=== PATIENT | male | born 1965 | race American Indian/Alaskan Native ===

== ENCOUNTER 2016-11-25 14:57 | Observation (INO) | payer OTHER ==
[2016-11-25] MEDS ORDERED: IPRATROPIUM-ALBUTEROL 3 ML NEB INHALATION STA (16:02)
[2016-11-25] MEDS ORDERED: FUROSEMIDE 10 MG/ML 4 ML VIAL IV STA (16:02)
--- NOTE | 2016-11-25 16:04 | ED ---
General Adult HPI - General Source: patient, RN notes reviewed, old records reviewed Mode of arrival: ambulatory Limitations: no limitations <Joel Rodriguez - Last Filed: 11/25/16 16:31> <Joel Chamberlain - Last Filed: 11/25/16 18:24> - General Chief complaint: Recheck/Abnormal Lab/Rx Stated complaint: Pneumonia - History of Present Illness Initial comments: This is a 52-year-old male to the ER for evaluation. This patient presents to the ER for evaluation of shortness of breath source of breath with cough and congestion not feeling well for a month. Patient does have significant heart history and see history of COPD. Denies fevers. No travel history. No specific chest pain. Is not very well. Patient was seen in urgent care and told to come to ER for abnormal x-ray possible pneumonia. Patient denies cough or congestion but does admit to shortness of breath. No chest pain no bowel pain no nausea vomiting or diarrhea (Joel Rodriguez) - Related Data Home Medications Medication Instructions Recorded Confirmed Aspirin 162.5 mg PO BID 11/25/16 11/25/16 Atorvastatin [Lipitor] 80 mg PO HS 11/25/16 11/25/16 Cholecalciferol [Vitamin D3] 5,000 unit PO DAILY 11/25/16 11/25/16 Clopidogrel [Plavix] 75 mg PO DAILY 11/25/16 11/25/16 Digoxin [Digitek] 125 mcg PO DAILY 11/25/16 11/25/16 Magnesium 400 mg PO DAILY 11/25/16 11/25/16 Metoprolol Tartrate [Lopressor] 50 mg PO DAILY 11/25/16 11/25/16 amLODIPine [Norvasc] 2.5 mg PO DAILY 11/25/16 11/25/16 metFORMIN HCL [Glucophage] 500 mg PO BID 11/25/16 11/25/16 Allergies Allergy/AdvReac Type Severity Reaction Status Date / Time codeine Allergy Severe Dyspnea Verified 11/25/16 17:19 Opioids - Morphine Analogues Allergy Severe Dyspnea Verified 11/25/16 17:19 Penicillins Allergy Dyspnea Verified 11/25/16 17:19 Sulfa (Sulfonamide Allergy Anaphylaxis Verified 11/25/16 17:19 Antibiotics) Review of Systems ROS Other: All systems not noted in ROS Statement are negative. <Joel Rodriguez - Last Filed: 11/25/16 16:31> ROS Other: All systems not noted in ROS Statement are negative. <Joel Chamberlain - Last Filed: 11/25/16 18:24> ROS Statement: Those systems with pertinent positive or pertinent negative responses have been documented in the HPI. Past Medical History Past Medical History: Coronary Artery Disease (CAD), Heart Failure, COPD, CVA/ TIA, Diabetes Mellitus, Hyperlipidemia, Hypertension, Myocardial Infarction ([place]) History of Any Multi-Drug Resistant Organisms: None Reported Past Surgical History: Orthopedic Surgery Additional Past Surgical History / Comment(s): arm reconstruction Past Psychological History: No Psychological Hx Reported Smoking Status: Current every day smoker Past Alcohol Use History: None Reported Past Drug Use History: None Reported <Joel Rodriguez - Last Filed: 11/25/16 16:31> General Exam Limitations: no limitations General appearance: alert, in no apparent distress Head exam: Present: atraumatic, normocephalic, normal inspection Eye exam: Present: normal appearance, PERRL, EOMI. Absent: scleral icterus, conjunctival injection, periorbital swelling ENT exam: Present: normal exam, mucous membranes moist Neck exam: Present: normal inspection. Absent: tenderness, meningismus, lymphadenopathy Respiratory exam: Present: normal lung sounds bilaterally. Absent: respiratory distress, wheezes, rales, rhonchi, stridor Cardiovascular Exam: Present: regular rate, normal rhythm, normal heart sounds. Absent: systolic murmur, diastolic murmur, rubs, gallop, clicks GI/Abdominal exam: Present: soft, normal bowel sounds. Absent: distended, tenderness, guarding, rebound, rigid Extremities exam: Present: normal inspection, full ROM, normal capillary refill. Absent: tenderness, pedal edema, joint swelling, calf tenderness Back exam: Present: normal inspection Neurological exam: Present: alert, oriented X3, CN II-XII intact Psychiatric exam: Present: normal affect, normal mood Skin exam: Present: warm, dry, intact, normal color. Absent: rash <Joel Rodriguez - Last Filed: 11/25/16 16:31> EKG Findings - EKG Comments: EKG Findings:: EKG shows sinus rhythm rate of 93, HI 208, QRS 118, QTC 474, peaked T waves through the anterior precordial leads, old Q waves inferior <Joel Rodriguez - Last Filed: 11/25/16 16:31> Medical Decision Making <Joel Rodriguez - Last Filed: 11/25/16 16:31> - Lab Data Result diagrams: 11/25/16 16:23 11/25/16 16:23 <Joel Chamberlain - Last Filed: 11/25/16 18:24> - Medical Decision Making Patient mildly elevated troponin and an elevated BNP. Patient was still having some dyspnea in the hospital psychiatric the patient a little Lasix and admitted him for repeat troponins as well as some diuretics. (Joel Chamberlain) - Lab Data Lab Results 11/25/16 11/25/16 11/25/16 Range/Units 16:23 16:23 16:23 WBC 10.1 (3.8-10.6) k/uL RBC 5.08 (4.30-5.90) m/uL Hgb 15.2 (13.0-17.5) gm/dL Hct 44.3 (39.0-53.0) % MCV 87.4 (80.0-100.0) fL MCH 29.9 (25.0-35.0) pg MCHC 34.2 (31.0-37.0) g/dL RDW 13.5 (11.5-15.5) % Plt Count 222 (150-450) k/uL Neutrophils % 68 % Lymphocytes % 21 % Monocytes % 6 % Eosinophils % 3 % Basophils % 1 % Neutrophils # 6.8 (1.3-7.7) k/uL Lymphocytes # 2.1 (1.0-4.8) k/uL Monocytes # 0.6 (0-1.0) k/uL Eosinophils # 0.3 (0-0.7) k/uL Basophils # 0.1 (0-0.2) k/uL PT (9.0-12.0) sec INR (<1.1) APTT (22.0-30.0) sec Sodium 135 L (137-145) mmol/L Potassium 3.8 (3.5-5.1) mmol/L Chloride 104 (98-107) mmol/L Carbon Dioxide 20 L (22-30) mmol/L Anion Gap 11 mmol/L BUN 12 (9-20) mg/dL Creatinine 1.00 (0.66-1.25) mg/dL Est GFR (MDRD) Af Amer >60 (>60 ml/min/1.73 sqM) Est GFR (MDRD) Non-Af >60 (>60 ml/min/1.73 sqM) Glucose 327 H (74-99) mg/dL Calcium 9.4 (8.4-10.2) mg/dL Magnesium 1.8 (1.6-2.3) mg/dL Total Bilirubin 1.6 H (0.2-1.3) mg/dL AST 65 H (17-59) U/L ALT 87 H (21-72) U/L Alkaline Phosphatase 105 (38-126) U/L Total Creatine Kinase 364 H (55-170) U/L CK-MB (CK-2) 4.7 H* (0.0-2.4) ng/mL CK-MB (CK-2) Rel Index 1.3 Troponin I 0.039 H* (0.000-0.034) ng/mL NT-Pro-B Natriuret Pep pg/mL Total Protein 7.4 (6.3-8.2) g/dL Albumin 4.0 (3.5-5.0) g/dL 11/25/16 11/25/16 Range/Units 16:23 16:23 WBC (3.8-10.6) k/uL RBC (4.30-5.90) m/uL Hgb (13.0-17.5) gm/dL Hct (39.0-53.0) % MCV (80.0-100.0) fL MCH (25.0-35.0) pg MCHC (31.0-37.0) g/dL RDW (11.5-15.5) % Plt Count (150-450) k/uL Neutrophils % % Lymphocytes % % Monocytes % % Eosinophils % % Basophils % % Neutrophils # (1.3-7.7) k/uL Lymphocytes # (1.0-4.8) k/uL Monocytes # (0-1.0) k/uL Eosinophils # (0-0.7) k/uL Basophils # (0-0.2) k/uL PT 10.9 (9.0-12.0) sec INR 1.1 (<1.1) APTT 24.1 (22.0-30.0) sec Sodium (137-145) mmol/L Potassium (3.5-5.1) mmol/L Chloride (98-107) mmol/L Carbon Dioxide (22-30) mmol/L Anion Gap mmol/L BUN (9-20) mg/dL Creatinine (0.66-1.25) mg/dL Est GFR (MDRD) Af Amer (>60 ml/min/1.73 sqM) Est GFR (MDRD) Non-Af (>60 ml/min/1.73 sqM) Glucose (74-99) mg/dL Calcium (8.4-10.2) mg/dL Magnesium (1.6-2.3) mg/dL Total Bilirubin (0.2-1.3) mg/dL AST (17-59) U/L ALT (21-72) U/L Alkaline Phosphatase (38-126) U/L Total Creatine Kinase (55-170) U/L CK-MB (CK-2) (0.0-2.4) ng/mL CK-MB (CK-2) Rel Index Troponin I (0.000-0.034) ng/mL NT-Pro-B Natriuret Pep 1450 pg/mL Total Protein (6.3-8.2) g/dL Albumin (3.5-5.0) g/dL Disposition <Joel Rodriguez - Last Filed: 11/25/16 16:31> Time of Disposition: 18:23 <Joel Chamberlain - Last Filed: 11/25/16 18:24> Clinical Impression: Pulmonary edema, Dyspnea, Elevated troponin Disposition: ADMITTED IP TO THIS HOSP Referrals: May Marquez MD [Primary Care Provider] - 1-2 days
[2016-11-25 16:42] LABS: Basophils # (A) 0.1 k/uL (0-0.2); Basophils % (A) 1 %; CH 30.5; CHCM 35.1; Eosinophils # (A) 0.3 k/uL (0-0.7); Eosinophils % (A) 3 %; HCT 44.3 % (39.0-53.0); HDW 2.82; HGB 15.2 gm/dL (13.0-17.5); Luc # (Auto) 0.16; Luc % (Auto) 2; Lymphocytes # (A) 2.1 k/uL (1.0-4.8); Lymphocytes % (A) 21 %; MCH 29.9 pg (25.0-35.0); MCHC 34.2 g/dL (31.0-37.0); MCV 87.4 fL (80.0-100.0); Mean Platelet Volume 7.1; Monocytes # (A) 0.6 k/uL (0-1.0); Monocytes % (A) 6 %; Neutrophils # (A) 6.8 k/uL (1.3-7.7); Neutrophils % (A) 68 %; RBC 5.08 m/uL (4.30-5.90); RDW 13.5 % (11.5-15.5); WBC 10.1 k/uL (3.8-10.6); WBC (Perox) 9.59
[2016-11-25 16:50] LABS: INR 1.1 (<1.1); Partial Thromboplastin Time 24.1 sec (22.0-30.0); Prothrombin Time 10.9 sec (9.0-12.0)
[2016-11-25 16:51] LABS: ALT 87 U/L (21-72); AST 65 U/L (17-59); Alkaline Phosphatase 105 U/L (38-126); Anion Gap 11 mmol/L; Blood Urea Nitrogen 12 mg/dL (9-20); Calcium 9.4 mg/dL (8.4-10.2); Carbon Dioxide 20 mmol/L (22-30); Chloride 104 mmol/L (98-107); Glucose 327 mg/dL (74-99); Magnesium 1.8 mg/dL (1.6-2.3); Non-African American GFR(MDRD) >60 (>60 ml/min/1.73 sqM); Potassium 3.8 mmol/L (3.5-5.1); Sodium 135 mmol/L (137-145); Total Bilirubin 1.6 mg/dL (0.2-1.3); Total Protein 7.4 g/dL (6.3-8.2)
[2016-11-25 17:18] LABS: Creatine Kinase MB 4.7 ng/mL (0.0-2.4); Troponin I 0.039 ng/mL (0.000-0.034)
--- NOTE | 2016-11-25 17:28 | XR ---
EXAMINATION TYPE: XR chest 2V DATE OF EXAM: 11/25/2016 5:06 PM COMPARISON: August 22, 2013 HISTORY: Shortness of breath TECHNIQUE: Frontal and lateral views of the chest are obtained. FINDINGS: Scattered senescent parenchymal changes noted. Hyperinflation compatible with COPD. There is peribronchial cuffing which can be seen in patients with a bronchitis. Mild increased densit y right medial lung base may reflect developing infiltrate. Correlate clinically. Heart size is stable. Mediastinal structures are stable and grossly unremarkable. No evidence for hilar prominence. Degenerative changes dorsal spine. IMPRESSION: 1. There is peribronchial cuffing which can be seen in patients with a bronchitis. Mild increased den sity right medial lung base may reflect developing infiltrate. Correlate clinically.
[2016-11-25 18:42] LABS: Glucose,Whole Blood 266 mg/dL (75-99)
[2016-11-25 19:43] LABS: Glucose,Whole Blood 248 mg/dL (75-99)
[2016-11-25] MEDS: INSULIN LISPRO (humaLOG) 300 UNIT/3 ML VIAL SQ SCH (21:25)
[2016-11-25] MEDS ORDERED: IPRATROPIUM-ALBUTEROL 3 ML NEB INHALATION PRN (21:49)
[2016-11-25] MEDS ORDERED: ALPRAZolam 0.25 MG TAB PO PRN (21:49)
[2016-11-25] MEDS ORDERED: MELATONIN 5 MG TABLET PO PRN (21:51)
[2016-11-25] MEDS: NITROGLYCERIN OINT 1 INCH/GM PACKET TOPICAL SCH (22:01)
[2016-11-25] MEDS: FUROSEMIDE 10 MG/ML 2 ML VIAL IV SCH (22:01)
[2016-11-25] MEDS: NICOTINE 21MG/24HR PATCH TRANSDERM SCH (22:40)
[2016-11-26 05:59] LABS: Basophils # (A) 0.1 k/uL (0-0.2); Basophils % (A) 1 %; CH 30.5; CHCM 34.8; Eosinophils # (A) 0.4 k/uL (0-0.7); Eosinophils % (A) 4 %; HCT 46.5 % (39.0-53.0); HDW 2.83; HGB 16.2 gm/dL (13.0-17.5); Luc # (Auto) 0.16; Luc % (Auto) 2; Lymphocytes # (A) 2.4 k/uL (1.0-4.8); Lymphocytes % (A) 24 %; MCH 30.6 pg (25.0-35.0); MCHC 34.8 g/dL (31.0-37.0); Mean Platelet Volume 7.1; Monocytes # (A) 0.6 k/uL (0-1.0); Monocytes % (A) 6 %; Neutrophils # (A) 6.2 k/uL (1.3-7.7); Neutrophils % (A) 63 %; RBC 5.28 m/uL (4.30-5.90); RDW 13.5 % (11.5-15.5); WBC 9.8 k/uL (3.8-10.6); WBC (Perox) 9.48
[2016-11-26 06:05] LABS: Glucose,Whole Blood 226 mg/dL (75-99)
[2016-11-26] MEDS: INSULIN LISPRO (humaLOG) 300 UNIT/3 ML VIAL SQ SCH ×4 (06:13→21:09)
[2016-11-26 06:16] LABS: Anion Gap 10 mmol/L; Blood Urea Nitrogen 13 mg/dL (9-20); Calcium 9.2 mg/dL (8.4-10.2); Carbon Dioxide 25 mmol/L (22-30); Chloride 102 mmol/L (98-107); Glucose 240 mg/dL (74-99); Magnesium 1.9 mg/dL (1.6-2.3); Non-African American GFR(MDRD) >60 (>60 ml/min/1.73 sqM); Potassium 3.5 mmol/L (3.5-5.1); Sodium 137 mmol/L (137-145)
[2016-11-26] MEDS: IPRATROPIUM-ALBUTEROL 3 ML NEB INHALATION SCH ×4 (07:56→21:05)
[2016-11-26] MEDS: SYMBICORT 160-4.5 MCG INHALER INHALATION SCH ×2 (07:56→21:05)
[2016-11-26] MEDS: NICOTINE 21MG/24HR PATCH TRANSDERM SCH ×2 (07:56→17:00)
[2016-11-26] MEDS: FUROSEMIDE 10 MG/ML 2 ML VIAL IV SCH (07:56)
[2016-11-26 08:18] VITALS: RESP 18
[2016-11-26 09:55] LABS: Hemoglobin A1C 9.8 % (4.2-6.1)
[2016-11-26 10:09] VITALS: BMI 27.3
[2016-11-26] MEDS: NITROGLYCERIN OINT 1 INCH/GM PACKET TOPICAL SCH ×4 (10:41→21:19)
[2016-11-26 11:33] LABS: Glucose,Whole Blood 288 mg/dL (75-99)
--- NOTE | 2016-11-26 12:58 | P.HPIM ---
History of Present Illness H&P Date: 11/26/16 Chief Complaint: dyspnea 51-year-old gentleman with history of CAD status post CABG and apparently a valve replacement patient denies having any chest pain at this time. Patient states that he has been to [facility]'s clinic multiple number of times with the complaints of dyspnea and low energy however no intervention was offered. Patient currently has stopped taking his medications or a month ago Patient smokes about a pack of cigars daily and this has been ongoing for the last 35 years. Patient denies seen a oil well drilling manager in the recent times In the emergency room patient was noted to have some anterolateral changes on the EKG however no ST elevation that meets the criteria Patient does appear to have a troponin elevation as well Patient states that after he was given a breathing treatment he was noted to have significant amount of phlegm production. States that his breathing is improved again he denies having chest pain nausea vomiting diarrhea at this time. Review of Systems All systems: negative (Noted in HPI) Past Medical History Past Medical History: Coronary Artery Disease (CAD), Heart Failure, COPD, CVA/ TIA, Diabetes Mellitus, Hyperlipidemia, Hypertension, Myocardial Infarction ([place]) Last Myocardial Infarction Date:: unk History of Any Multi-Drug Resistant Organisms: None Reported Past Surgical History: Orthopedic Surgery Additional Past Surgical History / Comment(s): arm reconstruction Past Psychological History: No Psychological Hx Reported Smoking Status: Current every day smoker Past Alcohol Use History: None Reported Past Drug Use History: None Reported - Past Family History Father Family Medical History: No Reported History Medications and Allergies Home Medications Medication Instructions Recorded Confirmed Type Aspirin 162.5 mg PO BID 11/25/16 11/25/16 History Atorvastatin [Lipitor] 80 mg PO HS 11/25/16 11/25/16 History Cholecalciferol [Vitamin D3] 5,000 unit PO DAILY 11/25/16 11/25/16 History Clopidogrel [Plavix] 75 mg PO DAILY 11/25/16 11/25/16 History Digoxin [Digitek] 125 mcg PO DAILY 11/25/16 11/25/16 History Magnesium 400 mg PO DAILY 11/25/16 11/25/16 History Metoprolol Tartrate [Lopressor] 50 mg PO DAILY 11/25/16 11/25/16 History amLODIPine [Norvasc] 2.5 mg PO DAILY 11/25/16 11/25/16 History metFORMIN HCL [Glucophage] 500 mg PO BID 11/25/16 11/25/16 History Allergies Allergy/AdvReac Type Severity Reaction Status Date / Time codeine Allergy Severe Dyspnea Verified 11/25/16 17:19 Opioids - Morphine Analogues Allergy Severe Dyspnea Verified 11/25/16 17:19 Penicillins Allergy Dyspnea Verified 11/25/16 17:19 Sulfa (Sulfonamide Allergy Anaphylaxis Verified 11/25/16 17:19 Antibiotics) Physical Exam Vitals: Vital Signs Temp Pulse Pulse Resp BP BP Pulse Ox 11/26/16 08:05 100 11/26/16 08:00 98.6 F 100 18 147/67 95 11/26/16 07:57 100 97 11/26/16 04:00 84 16 154/78 95 11/26/16 00:00 87 16 145/78 95 11/25/16 20:00 16 11/25/16 19:10 96.2 F L 98 16 152/98 96 11/25/16 18:41 97.6 F 80 18 114/92 95 11/25/16 17:24 98.7 F 99 18 169/75 95 11/25/16 16:46 96 11/25/16 16:29 91 11/25/16 16:23 98.7 F 97 18 150/90 98 11/25/16 15:02 98.1 F 94 20 170/94 96 Intake and Output 11/25/16 11/26/16 11/26/16 22:59 06:59 14:59 Intake Total 0 180 Output Total 500 1050 500 Balance -500 -1050 -320 Intake: IV 0 NS 0 Oral 180 Output: Urine 500 1050 500 Other: Weight 89.6 kg 88.8 kg 88.8 kg Patient Weight 11/27/16 06:59 Weight 88.8 kg Physical exam Gen. appearance oriented 3 in no distress Neck is supple no JVD Lungs diminished breath sounds no wheezing however in story crackles are appreciated Heart S1-S2 heard regular rate and rhythm no murmurs appreciated Abdomen is soft nontender no organomegaly bowel sounds are intact Neurologically cranial nerves II-12 grossly intact no focal motor or sensory deficits noted Skin no abnormalities appreciated Results CBC & Chem 7: 11/26/16 05:30 11/26/16 05:30 Labs: Abnormal Lab Results - Last 24 Hours (Table) 11/25/16 11/25/1617 Range/Units 16:23 16:23 18:40 Sodium 135 L (137-145) mmol/L Carbon Dioxide 20 L (22-30) mmol/L Glucose 327 H (74-99) mg/dL POC Glucose (mg/dL) 266 H (75-99) mg/dL Hemoglobin A1c (4.2-6.1) % Total Bilirubin 1.6 H (0.2-1.3) mg/dL AST 65 H (17-59) U/L ALT 87 H (21-72) U/L Total Creatine Kinase 364 H (55-170) U/L CK-MB (CK-2) 4.7 H* (0.0-2.4) ng/mL Troponin I 0.039 H* (0.000-0.034) ng/mL 11/25/16 11/25/16 11/26/16 Range/Units 19:42 22:07 05:30 Sodium (137-145) mmol/L Carbon Dioxide (22-30) mmol/L Glucose (74-99) mg/dL POC Glucose (mg/dL) 248 H (75-99) mg/dL Hemoglobin A1c 9.8 H (4.2-6.1) % Total Bilirubin (0.2-1.3) mg/dL AST (17-59) U/L ALT (21-72) U/L Total Creatine Kinase (55-170) U/L CK-MB (CK-2) (0.0-2.4) ng/mL Troponin I 0.046 H* (0.000-0.034) ng/mL 11/26/16 11/26/16 11/26/16 Range/Units 05:30 05:30 06:04 Sodium (137-145) mmol/L Carbon Dioxide (22-30) mmol/L Glucose 240 H (74-99) mg/dL POC Glucose (mg/dL) 226 H (75-99) mg/dL Hemoglobin A1c (4.2-6.1) % Total Bilirubin (0.2-1.3) mg/dL AST (17-59) U/L ALT (21-72) U/L Total Creatine Kinase (55-170) U/L CK-MB (CK-2) (0.0-2.4) ng/mL Troponin I 0.048 H* (0.000-0.034) ng/mL 11/26/16 Range/Units 11:29 Sodium (137-145) mmol/L Carbon Dioxide (22-30) mmol/L Glucose (74-99) mg/dL POC Glucose (mg/dL) 288 H (75-99) mg/dL Hemoglobin A1c (4.2-6.1) % Total Bilirubin (0.2-1.3) mg/dL AST (17-59) U/L ALT (21-72) U/L Total Creatine Kinase (55-170) U/L CK-MB (CK-2) (0.0-2.4) ng/mL Troponin I (0.000-0.034) ng/mL Thrombosis Risk Factor Assmnt - Choose All That Apply Any of the Below Risk Factors Present?: Yes Each Factor Represents 1 point: Age 41-60 years, Obesity (BMI >25) Thrombosis Risk Factor Assessment Total Risk Factor Score: 2 Thrombosis Risk Factor Assessment Level: Low Risk Assessment and Plan Plan: #1 dyspnea this is likely secondary to an acute exacerbation of underlying COPD in an patient with ongoing tobacco use #2 indeterminant troponin leak rule out ACS #3 on ongoing tobacco use #4 history of hypertension #5 history of CAD #6 history of valvular replacement #7 urticaria Plan Patient's symptoms of progressive dyspnea and ongoing tobacco use appear to be more of a lung etiology obstructive pattern likely. We will obtain a computed tomography scan of the chest which would also evaluate patient's prolonged smoking history to rule out lung cancer Patient would benefit from seeing a assistant program manager on an outpatient basis. Patient was started on Symbicort be given Solu-Medrol 49 g every 12 hours With the EKG changes and history of CA BG. We'll have our cardiology evaluates patient has no during this admission. The trend troponins Patient does not have active chest pain hence the we'll defer on not heparinizing the patient We'll start the patient on Levaquin with the findings of bronchitis as causing exacerbation of COPD
[2016-11-26] MEDS ORDERED: LEVOFLOXACIN 500 MG TAB PO SCH (13:00)
[2016-11-26] MEDS: methylPREDNISolone SOD SUCCI 40 MG/ML 1 ML VIAL IV SCH ×2 (14:27→23:06)
[2016-11-26 16:48] LABS: Glucose,Whole Blood 232 mg/dL (75-99)
[2016-11-26] MEDS: ACETAMINOPHEN TAB 325 MG TAB PO PRN (17:00)
[2016-11-26 20:42] LABS: Glucose,Whole Blood 173 mg/dL (75-99)
[2016-11-26] MEDS ORDERED: INSULIN DETEMIR 100 UNIT/ML 10 ML VIAL SQ SCH (21:00)
--- NOTE | 2016-11-26 23:19 | CT ---
EXAMINATION TYPE: CT chest wo con DATE OF EXAM: 11/26/2016 6:01 PM COMPARISON: NONE HISTORY: Shortness of breath, cough and congestion CT DLP: 463.1 mGycm Automated exposure control for dose reduction was used. FINDINGS: There are sternal sutures and mediastinal clips, with prominent coronary calcifications. There is mil d-plus cardiomegaly. The pericardium has normal appearance; there is no pericardial effusion. There i s no mediastinal or hilar adenopathy. The airways are unremarkable. The lungs are clear and well expanded bilaterally. The visualized skeletal structures are unremarkable. Visualized subdiaphragmatic structures negative for acute findings, but cholelithiasis incidentally n oted. IMPRESSION: NO ACUTE PROCESS.
[2016-11-27 05:38] LABS: Glucose,Whole Blood 291 mg/dL (75-99)
[2016-11-27] MEDS: INSULIN LISPRO (humaLOG) 300 UNIT/3 ML VIAL SQ SCH ×2 (06:15→12:50)
[2016-11-27 08:10] VITALS: BP 161/106; TEMP 97.4
[2016-11-27] MEDS: NITROGLYCERIN OINT 1 INCH/GM PACKET TOPICAL SCH ×2 (08:15→12:50)
[2016-11-27] MEDS: NICOTINE 21MG/24HR PATCH TRANSDERM SCH (08:15)
[2016-11-27] MEDS: ACETAMINOPHEN TAB 325 MG TAB PO PRN (08:22)
[2016-11-27] MEDS: SYMBICORT 160-4.5 MCG INHALER INHALATION SCH (08:43)
[2016-11-27] MEDS: IPRATROPIUM-ALBUTEROL 3 ML NEB INHALATION SCH ×2 (08:44→11:57)
--- NOTE | 2016-11-27 09:28 | ECHOF ---
Referral Reason:wall motion abnormalities MEASUREMENTS -------- HEIGHT: 182.9 cm WEIGHT: 88.5 kg BP: IVSd: 0.8 cm (0.6 - 1.1) LVIDd: 6.7 cm (3.9 - 5.3) LVPWd: 1.3 cm (0.6 - 1.1) IVSs: 1.2 cm LVIDs: 5.9 cm LVPWs: 1.3 cm Ao Diam: 3.5 cm (2.0 - 3.7) AV Cusp: 2.1 cm (1.5 - 2.6) LA Diam: 3.4 cm (2.7 - 3.8) MV EXCURSION: 23.254 mm (> 18.000) MV EF SLOPE: 146 mm/s (70 - 150) EPSS: 1.6 cm MV E Sedrick: 1.15 m/s MV DecT: 198 ms MV A Sedrick: 0.27 m/s MV E/A Ratio: 4.27 RAP: 5.00 mmHg RVSP: 14.20 mmHg FINDINGS -------- Sinus rhythm. This was a technically difficult study with suboptimal views. The left ventricle is moderately dilated. Left ventricular wall thickness is normal. There is severe global hypokinesis of LV . Overall left ventricular systolic function is severely impaired with, an EF between 20 - 25 %. The right ventricle is normal in size and function. The left atrium is normal in size. The right atrium is normal in size. 1.5mg of Definity was utilized for enhancement of images The aortic valve is trileaflet, and appears structurally normal. No aortic stenosis or regurgitation. The mitral valve leaflets are mildly thickened. Mild mitral regurgitation is present. Mild tricuspid regurgitation present. The right ventricular systolic pressure, as measured by Doppler, is 14.20mmHg. Pulmonic valve appears structurally normal. The aortic root size is normal. The pericardium is normal. CONCLUSIONS -------- 1. Sinus rhythm. 2. 1.5mg of Definity was utilized for enhancement of images 3. The aortic valve is trileaflet, and appears structurally normal. No aortic stenosis or regurgitation. 4. The mitral valve leaflets are mildly thickened. 5. Mild mitral regurgitation is present. 6. Mild tricuspid regurgitation present. 7. The right ventricular systolic pressure, as measured by Doppler, is 14.20mmHg. 8. Pulmonic valve appears structurally normal. 9. The aortic root size is normal. 10. The pericardium is normal. 11. This was a technically difficult study with suboptimal views. 12. The left ventricle is moderately dilated. 13. Left ventricular wall thickness is normal. 14. There is severe global hypokinesis of LV . 15. Overall left ventricular systolic function is severely impaired with, an EF between 20 - 25 %. 16. The right ventricle is normal in size and function. 17. The left atrium is normal in size. 18. The right atrium is normal in size. RN HEMO DIALYSIS: Jessie Shah RDCS
--- NOTE | 2016-11-27 11:09 | P.CRDCN ---
History of Present Illness Consult date: 11/27/16 History of present illness: This is a 51-year-old gentleman with history of ischemic heart disease and a bypass surgery done more than 10 years ago. It appears that most probably patient had previous myocardial infarction. He follows with Dr. Wells and also in [facility]. Over the last month, patient has been having symptoms of cough, fever and congestion and what he calls walking pneumonia. He was also short of breath. Apparently was having some difficulties with the follow- ups. He was treated with antibiotics intermittently. Finally patient came to the emergency room because of ongoing symptoms and is admitted here for further evaluation. His troponin values are borderline elevated but they're not consistent with acute coronary syndrome. Did not have any symptoms of chest pain sized for angina. His EKG showed a sinus rhythm with evidence of old anterolateral myocardial infarction with possible aneurysm formation. His echo [place] showed an ejection fraction of 20-25%, which was similar to the echo findings in the past. He smokes one pack per day. At the time of my examination patient doesn't appear to be in acute distress. He is going to have a CAT scan and pulmonary evaluation. I do not think that patient has an acute coronary syndrome and I don't think he needs any acute intervention. He should be continued on beta blockers, lipid-lowering agents, diuretic therapy and DIAMOND inhibitor. Follow-up with MORRIS Menon upon discharge. Review of Systems As per the chart Past Medical History Past Medical History: Coronary Artery Disease (CAD), Heart Failure, COPD, CVA/ TIA, Diabetes Mellitus, Hyperlipidemia, Hypertension, Myocardial Infarction ([place]) Last Myocardial Infarction Date:: unk History of Any Multi-Drug Resistant Organisms: None Reported Past Surgical History: Orthopedic Surgery Additional Past Surgical History / Comment(s): arm reconstruction Past Psychological History: No Psychological Hx Reported Smoking Status: Current every day smoker Past Alcohol Use History: None Reported Past Drug Use History: None Reported - Past Family History Father Family Medical History: No Reported History Medications and Allergies Home Medications Medication Instructions Recorded Confirmed Type Aspirin 162.5 mg PO BID 11/25/16 11/25/16 History Atorvastatin [Lipitor] 80 mg PO HS 11/25/16 11/25/16 History Cholecalciferol [Vitamin D3] 5,000 unit PO DAILY 11/25/16 11/25/16 History Clopidogrel [Plavix] 75 mg PO DAILY 11/25/16 11/25/16 History Digoxin [Digitek] 125 mcg PO DAILY 11/25/16 11/25/16 History Magnesium 400 mg PO DAILY 11/25/16 11/25/16 History Metoprolol Tartrate [Lopressor] 50 mg PO DAILY 11/25/16 11/25/16 History amLODIPine [Norvasc] 2.5 mg PO DAILY 11/25/16 11/25/16 History metFORMIN HCL [Glucophage] 500 mg PO BID 11/25/16 11/25/16 History Allergies Allergy/AdvReac Type Severity Reaction Status Date / Time codeine Allergy Severe Dyspnea Verified 11/25/16 17:19 Opioids - Morphine Analogues Allergy Severe Dyspnea Verified 11/25/16 17:19 Penicillins Allergy Dyspnea Verified 11/25/16 17:19 Sulfa (Sulfonamide Allergy Anaphylaxis Verified 11/25/16 17:19 Antibiotics) Physical Exam Vitals: Vital Signs Temp Pulse Pulse Resp BP Pulse Ox 11/27/16 09:00 100 11/27/16 08:45 104 H 11/27/16 08:00 97.4 F L 106 H 18 161/106 97 11/27/16 00:00 18 11/26/16 23:00 95 18 150/88 95 11/26/16 21:19 104 H 11/26/16 21:05 104 H 11/26/16 16:24 104 H 11/26/16 16:13 104 H 11/26/16 15:51 103 H 18 151/76 94 L 11/26/16 12:00 98.4 F 101 H 18 157/85 95 Intake and Output 11/26/16 11/27/16 11/27/16 22:59 06:59 14:59 Intake Total 180 0 Output Total 550 800 Balance -370 -800 Intake: IV 0 NS 0 Oral 180 Output: Urine 550 800 GENERAL EXAM: Patient is alert and oriented and doesn't appear to be in any acute distress HEENT: Normocephalic. Normal reaction of pupils, equal size, normal range of extraocular motion. No erythema or exudates in the throat. NECK: No masses, no nuchal rigidity. CHEST: No chest wall deformity. LUNGS: Equal air entry with no crackles or wheeze. HEART: S1 and S2 normal with no audible mumurs or gallops. Regular rhythm, femorals equal on both sides.. ABDOMEN: No hepatosplenomegaly, normal bowel sounds, no guarding or rigidity. SKIN: No rashes CENTRAL NERVOUS SYSTEM: No focal deficits. EXTREMITIES: No cyanosis, clubbing or edema. Results 11/26/16 05:30 11/26/16 05:30 Current Medications Generic Name Dose Route Start Last Admin Trade Name Freq PRN Reason Stop Dose Admin Acetaminophen 650 mg 11/26/16 16:48 11/27/16 08:22 Tylenol Tab PO 650 mg Q6HR PRN Administration Fever and/ or MILD Pain Albuterol/Ipratropium 3 ml 11/26/16 08:00 11/27/16 08:44 Duoneb 0.5 Mg-3 Mg/3 Ml Soln INHALATION 3 ml RT-QID MARIELENA Administration Albuterol/Ipratropium 3 ml 11/25/16 21:49 Duoneb 0.5 Mg-3 Mg/3 Ml Soln INHALATION Q2HR PRN Shortness Of Breath Or Wheezing Alprazolam 0.25 mg 11/25/16 21:49 Xanax PO TID PRN Anxiety Budesonide/Formoterol Fumarate 2 puff 11/26/16 08:00 11/27/16 08:43 Symbicort 160-4.5 Mcg Inhaler INHALATION 2 puff RT-BID MARIELENA Administration Insulin Detemir 15 unit 11/26/16 21:00 11/26/16 21:09 Levemir SQ 15 unit HS MARIELENA Administration Insulin Human Lispro 0 unit 11/25/16 21:00 11/27/16 06:15 Humalog SQ 5 unit ACHS MARIELENA Administration Protocol Levofloxacin 500 mg 11/26/16 13:00 11/26/16 14:26 Levaquin PO 500 mg Q24H MARIELENA Administration Melatonin 5 mg 11/25/16 21:51 11/26/16 23:06 Melatonin PO 5 mg HS PRN Administration Insomnia Methylprednisolone Sodium Succinate 40 mg 11/26/16 12:30 11/26/16 23:06 Solu-Medrol IV 40 mg 0000,1200 MARIELENA Administration Nicotine 1 patch 11/25/16 22:00 11/27/16 08:15 Habitrol 21mg/24hr Patch TRANSDERM Not Given DAILY MARIELENA Nitroglycerin 1 inch 11/25/16 22:00 11/27/16 08:15 Nitro-Bid Oint TOPICAL Not Given QID MARIELENA Intake and Output 11/26/16 11/27/16 11/27/16 22:59 06:59 14:59 Intake Total 180 0 Output Total 550 800 Balance -370 -800 Intake: IV 0 NS 0 Oral 180 Output: Urine 550 800 11/26/16 05:30 11/26/16 05:30 EKG Interpretations (text) Sinus rhythm with evidence of old anterior wall myocardial infarction Assessment and Plan (1) Ischemic cardiomyopathy Status: Acute (2) Dyspnea Status: Acute (3) History of coronary artery bypass graft Status: Acute (4) Bronchitis Status: Acute (5) Elevated troponin level Status: Acute Plan: This patient is admitted moaning with cough, congestion suggestive of bronchitis. Patient does have severe cardiomyopathy with ejection fraction 25% . I discussed briefly about prophylactic AICD implantation. Patient doesn't want to consider that. Patient should be continued on chronic medical therapy including beta blockers, DIAMOND inhibitor and lipid-lowering agent and diuretic therapy in including spironolactone and follow-up with Dr. Wells as an outpatient
[2016-11-27 12:10] VITALS: PULSE 100
[2016-11-27 12:20] LABS: Glucose,Whole Blood 305 mg/dL (75-99)
[2016-11-27] MEDS: methylPREDNISolone SOD SUCCI 40 MG/ML 1 ML VIAL IV SCH (12:50)
--- NOTE | 2016-11-27 15:34 | P.DS ---
Providers Date of admission: 11/25/16 18:24 Attending physician: Damaris Delgado Consults: 11/26/16 12:53 Consult Physician Urgent Consulting Provider: Dino Moser Consult Reason/Comments: CAD Do you want consulting provider notified?: Yes Primary care physician: [facility] Hospital Course: 51-year-old gentleman with history of CAD status post CABG and apparently a valve replacement patient denies having any chest pain at this time. Patient states that he has been to [facility]'s clinic multiple number of times with the complaints of dyspnea and low energy however no intervention was offered. Patient currently has stopped taking his medications or a month ago Patient smokes about a pack of cigars daily and this has been ongoing for the last 35 years. Patient denies seen a gravel inspector in the recent times In the emergency room patient was noted to have some anterolateral changes on the EKG however no ST elevation that meets the criteria Patient does appear to have a troponin elevation as well Patient states that after he was given a breathing treatment he was noted to have significant amount of phlegm production. States that his breathing is improved again he denies having chest pain nausea vomiting diarrhea at this time. 11/27/2016 Patient states that he is feeling significantly better. Physical exam Gen. appearance oriented 3 in no distress Neck is supple no JVD Lungs better air movement appreciated. No significant wheezing or rhonchi however slightly diminished. Heart S1-S2 heard regular rate and rhythm no murmurs appreciated Abdomen is soft nontender no organomegaly bowel sounds are intact Neurologically cranial nerves II-12 grossly intact no focal motor or sensory deficits noted Skin no abnormalities appreciated Plan: #1 dyspnea this is likely secondary to an acute exacerbation of underlying COPD in an patient with ongoing tobacco use Suspect underlying COPD patient has improved we'll discharge the patient on Symbicort is given a consultation with Dr. Fontenot #2 systolic heart failure which is compensated. EF of 25-30%. Patient was evaluated with cardiology AICD placement is recommended however patient refused to have it #3ongoing tobacco use #4 history of hypertension #5 history of CAD #6 history of valvular replacement #7 urticaria #8 diabetes mellitus type 2 uncontrolled we'll discharge the patient on metformin thousand twice a day and glipizide 5 mg XL patient did not want to start insulin A1c is 9.8 area .smoking cessation is recommended Plan - Discharge Summary New Discharge Prescriptions: Budesonide-Formot 160-4.5 Mcg [Symbicort 160-4.5 Mcg Inhaler] 2 puff INHALATION RT-BID #1 inhaler glipiZIDE XL [Glucotrol XL] 5 mg PO DAILY #30 tab Lisinopril [Zestril] 5 mg PO DAILY #30 tab metFORMIN HCL 1,000 mg PO BID #60 tab Metoprolol Succinate [Toprol XL] 25 mg PO DAILY #30 tab Spironolactone [Aldactone] 25 mg PO TID #90 tablet Discharge Medication List Aspirin 162.5 mg PO BID 11/25/16 [History] Atorvastatin [Lipitor] 80 mg PO HS 11/25/16 [History] Cholecalciferol [Vitamin D3] 5,000 unit PO DAILY 11/25/16 [History] Magnesium 400 mg PO DAILY 11/25/16 [History] Budesonide-Formot 160-4.5 Mcg [Symbicort 160-4.5 Mcg Inhaler] 2 puff INHALATION RT-BID #1 inhaler 11/27/16 [Rx] Lisinopril [Zestril] 5 mg PO DAILY #30 tab 11/27/16 [Rx] Metoprolol Succinate [Toprol XL] 25 mg PO DAILY #30 tab 11/27/16 [Rx] Spironolactone [Aldactone] 25 mg PO TID #90 tablet 11/27/16 [Rx] glipiZIDE XL [Glucotrol XL] 5 mg PO DAILY #30 tab 11/27/16 [Rx] metFORMIN HCL 1,000 mg PO BID #60 tab 11/27/16 [Rx] Follow up Appointment(s)/Referral(s): Lily Menon MD [STAFF PHYSICIAN] - 12/03/16 2:00 pm (At [facility] ) May Marquez MD [Primary Care Provider] - 12/01/16 2:15 pm Patient Instructions/Handouts: Heart Failure (DC), Pulmonary Edema (DC) Activity/Diet/Wound Care/Special Instructions: Cardiac, diabetic diet. Glucometer ordered from [facility] (to be delivered to patient's home) - [phone] Discharge Disposition: HOME SELF-CARE
== END 2016-11-27 14:05 | disposition home or self-care (01) ==
LOC: EC 14:57 → INTOOBSV 18:24 → 6SEL 18:24 → 4MS4W 11-27 08:08
PROVIDERS: ADMIT Internal Medicine; ATTEND Internal Medicine
DX: R06.00 Dyspnea, unspecified (principal); J44.1 Chronic obstructive pulmonary disease with (acute) exacerbation; F17.290 Nicotine dependence, other tobacco product, uncomplicated; I11.0 Hypertensive heart disease with heart failure; I50.20 Unspecified systolic (congestive) heart failure; I25.10 Atherosclerotic heart disease of native coronary artery without angina pectoris; L50.9 Urticaria, unspecified; E11.65 Type 2 diabetes mellitus with hyperglycemia; I25.5 Ischemic cardiomyopathy; I25.2 Old myocardial infarction; Z88.5 Allergy status to narcotic agent; R74.8 Abnormal levels of other serum enzymes; Z79.899 Other long term (current) drug therapy; Z79.82 Long term (current) use of aspirin; Z79.02 Long term (current) use of antithrombotics/antiplatelets; Z79.84 Long term (current) use of oral hypoglycemic drugs; E78.5 Hyperlipidemia, unspecified; Z88.0 Allergy status to penicillin; Z88.2 Allergy status to sulfonamides; Z86.73 Personal history of transient ischemic attack (TIA), and cerebral infarction without residual deficits; Z95.1 Presence of aortocoronary bypass graft; Z95.2 Presence of prosthetic heart valve; Z91.14 Patient's other noncompliance with medication regimen
CPT/HCPCS: 96376 ×2; 96375; 96374; 99285; 36415; 94640 ×5; 94760; 93005; 83880; 80053; 80048; 83036; 82550; 82553; 83735 ×2; 84484 ×2; 85025 ×2; 85610; 85730; 71020; 71250; G0378 ×3; C8929; S4990 ×2; J1940 ×3; J2920; Q9957; 93306

== ENCOUNTER 2017-04-02 06:48 | Day surgery (SDC) | payer OTHER ==
[2017-03-31 17:01] VITALS: BMI 27.8
[~2017-04-02 06:48] MED LIST: LACTATED RINGERS 1,000 ML IV SCH; LIDOCAINE 1% 20 ML VIAL (10MG/ML) FOR IV START INTRADERMA PRN
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
[2017-04-02 07:07] VITALS: RESP 16; TEMP 97.4
[2017-04-02 07:19] LABS: Glucose,Whole Blood 191 mg/dL (75-99)
[2017-04-02] MEDS ORDERED: LIDOCAINE 1% INJ 10MG/ML (20 ML MDV) ONE (07:36)
[2017-04-02] MEDS ORDERED: PROPOFOL 10 MG/ML 20 ML VIAL IV ONE (07:36)
--- NOTE | 2017-04-02 08:03 | P.PCN ---
Date of Procedure: 04/02/17 Description of Procedure: PREOPERATIVE DIAGNOSIS: Gastroesophageal reflux disease. POSTOPERATIVE DIAGNOSIS: Gastritis. Gastroesophageal reflux disease. OPERATION: Esophagogastroduodenoscopy with biopsies along antrum. SURGEON: Melody Norton MD ANESTHESIA: MAC. INDICATIONS: The patient is a 52-year-old female who presents with a history of reflux disease. Benefits and risks of the procedure were described. Informed consent was obtained. DESCRIPTION: The patient was brought into the endoscopy suite and laid in the left lateral decubitus position. An Olympus gastroscope was passed along the posterior oropharynx down to the distal esophagus where the squamocolumnar junction was encountered at 41 cm from the incisors. The stomach was entered and no bile reflux was found. Additional findings are listed below. Biopsies with cold forceps were obtained of the antrum. The first through third portion of the duodenum was examined and unremarkable. Retroflexion of the scope confirmed Hill grade 2 lower esophageal valve. The squamocolumnar junction demostrated LA grade A erosive esophagitis. The stomach was desufflated. The patient tolerated the procedure well. FINDINGS: Squamocolumnar junction 41 cm from the incisors. Diaphragmatic hiatus at 41 cm. Hill grade 2 lower esophageal valve. LA grade A erosive esophagitis. Chronic superficial gastritis. No active duodenitis. RECOMMENDATIONS: Upper endoscopy as needed.
--- NOTE | 2017-04-02 08:07 | P.PCN ---
Date of Procedure: 04/02/17 Description of Procedure: PREOPERATIVE DIAGNOSIS: Colonoscopy screening. POSTOPERATIVE DIAGNOSIS: Colonoscopy screening. Diverticulosis, scattered. External hemorrhoids, grade 2. Colon polyps at ileocecal valve and sigmoid colon. OPERATION: Colonoscopy to the ileocecal valve and appendiceal orifice. Colonoscopy with cold forceps biopsies. SURGEON: Melody Norton MD. ANESTHESIA: MAC. INDICATIONS: The patient is a 52-year-old male who presents for colonoscopy screening. Benefits and risks were described and informed consent was obtained. DESCRIPTION OF PROCEDURE: The patient had undergone Gatorade, MiraLAX and Dulcolax prep. He had been brought into the operating room and laid in the left lateral decubitus position. After adequate intravenous sedation, the rectum was examined with 2% lidocaine jelly. External hemorrhoids were encountered. The rectal tone was within normal limits. No lesions were palpated in the rectal vault. An Olympus colonoscope was advanced until the ileocecal valve and appendiceal orifice were clearly viewed. The prep was fair with visualization of the mucosal folds. Scattered diverticulosis was encountered. No colonic polyps were found. No evidence of focal colitis was found. Hyperplastic 3 mm polyps were extracted ileocecal valve as well as an 3-mm flat adenoma at the sigmoid colon 25 cm from the anal verge. Grade 1 internal hemorrhoids without active bleeding or inflammation. The colon was desufflated. The patient had tolerated the procedure well. Withdrawal time was over 6 minutes. FINDINGS: Internal hemorrhoids, grade 1 External prolapsed hemorrhoids. No arteriovenous malformations. No adenomatous polyps. No focal colitis. RECOMMENDATIONS: Lower endoscopy in 5 years, 2021. Plan - Discharge Summary New Discharge Prescriptions: No Action Aspirin 162.5 mg PO BID Atorvastatin [Lipitor] 80 mg PO HS Magnesium 400 mg PO DAILY metFORMIN HCL 1,000 mg PO BID #60 tab Famotidine [Pepcid] 20 mg PO DAILY Digoxin [Lanoxin] 125 mcg PO DAILY Ascorbic Acid [Vitamin C] 500 mg PO Q2D glipiZIDE [Glucotrol] 10 mg PO AC-BRKFST amLODIPine [Norvasc] 2.5 mg PO DAILY Spironolactone [Aldactone] 25 mg PO DAILY Metoprolol Succinate [Toprol XL] 50 mg PO DAILY Discharge Medication List Aspirin 162.5 mg PO BID 11/25/16 [History] Atorvastatin [Lipitor] 80 mg PO HS 11/25/16 [History] Magnesium 400 mg PO DAILY 11/25/16 [History] metFORMIN HCL 1,000 mg PO BID #60 tab 11/27/16 [Rx] Ascorbic Acid [Vitamin C] 500 mg PO Q2D 03/31/17 [History] Digoxin [Lanoxin] 125 mcg PO DAILY 03/31/17 [History] Famotidine [Pepcid] 20 mg PO DAILY 03/31/17 [History] Metoprolol Succinate [Toprol XL] 50 mg PO DAILY 03/31/17 [History] Spironolactone [Aldactone] 25 mg PO DAILY 03/31/17 [History] amLODIPine [Norvasc] 2.5 mg PO DAILY 03/31/17 [History] glipiZIDE [Glucotrol] 10 mg PO AC-BRKFST 03/31/17 [History]
[2017-04-02 08:59] VITALS: BP 137/82; PULSE 69
== END 2017-04-02 09:17 | disposition home or self-care (01) ==
LOC: ORWHC2ENDO 06:48
PROVIDERS: ATTEND Surgery Plastic and Reconstructive Surgery
DX: Z12.11 Encounter for screening for malignant neoplasm of colon (principal); K29.70 Gastritis, unspecified, without bleeding; D12.0 Benign neoplasm of cecum; K63.5 Polyp of colon; K64.1 Second degree hemorrhoids; K57.30 Diverticulosis of large intestine without perforation or abscess without bleeding; K64.0 First degree hemorrhoids; K64.4 Residual hemorrhoidal skin tags; I25.10 Atherosclerotic heart disease of native coronary artery without angina pectoris; I11.0 Hypertensive heart disease with heart failure; I50.9 Heart failure, unspecified; F17.200 Nicotine dependence, unspecified, uncomplicated; I49.9 Cardiac arrhythmia, unspecified; I25.2 Old myocardial infarction; E78.5 Hyperlipidemia, unspecified; E11.9 Type 2 diabetes mellitus without complications; Z79.84 Long term (current) use of oral hypoglycemic drugs; J44.9 Chronic obstructive pulmonary disease, unspecified; K85.90 Acute pancreatitis without necrosis or infection, unspecified; Z86.73 Personal history of transient ischemic attack (TIA), and cerebral infarction without residual deficits; Z79.82 Long term (current) use of aspirin; Z79.899 Other long term (current) drug therapy; Z09 Encounter for follow-up examination after completed treatment for conditions other than malignant neoplasm; Z88.5 Allergy status to narcotic agent; Z88.0 Allergy status to penicillin; Z88.2 Allergy status to sulfonamides
CPT/HCPCS: 88305; 88342; 45380; 43239; J2001; J2704

== ENCOUNTER 2017-05-21 06:33 | Day surgery (SDC) | payer OTHER ==
[2017-05-19 09:33] VITALS: BMI 28.5
[~2017-05-21 06:33] MED LIST changes: +CLINDAMYCIN 900 MG in DEXTROSE 5% IN WATER 50 ML IVPB ONE; +DEXAMETHASONE SOD PHOSPHATE 10 MG/ML 1 ML VIAL IV ONE; +GENTAMICIN 400 MG in SODIUM CHLORIDE 0.9% 100 ML IVPB ONE; +HEPARIN SODIUM,PORCINE 5,000 UNIT/ML 1 ML VIAL SQ ONE; -LACTATED RINGERS 1,000 ML IV SCH; -LIDOCAINE 1% 20 ML VIAL (10MG/ML) FOR IV START INTRADERMA PRN; +MIDAZOLAM 2 MG/2 ML VIAL IV PRN; +ONDANSETRON 4 MG/2 ML VIAL IVP ONE; +SCOPOLAMINE 1.5MG/72HR PATCH TRANSDERM ONE; +fentaNYL (PF) 50 MCG/ML 2 ML AMP IV PRN
[2017-05-21] MEDS ORDERED: INSULIN ASPART 100 UNIT/ML 1 ML 10 ML VIAL SQ ONE ×2 (07:15→11:21)
[2017-05-21] MEDS: LACTATED RINGERS 1,000 ML IV SCH (07:15)
[2017-05-21] MEDS ORDERED: LIDOCAINE 1% 20 ML VIAL (10MG/ML) FOR IV START INTRADERMA ONE ×2 (07:15)
[2017-05-21 07:35] LABS: Glucose,Whole Blood 316 mg/dL (75-99)
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
[2017-05-21] MEDS ORDERED: MIDAZOLAM 2 MG/2 ML VIAL ONE (07:59)
[2017-05-21] MEDS ORDERED: fentaNYL (PF) 50 MCG/ML 2 ML AMP ONE (07:59)
[2017-05-21] MEDS ORDERED: METOPROLOL TARTRATE 5 MG/5 ML VIAL IVP ONE (07:59)
[2017-05-21] MEDS ORDERED: KETOROLAC 30 MG/ML 1 ML VIAL ONE (07:59)
[2017-05-21] MEDS ORDERED: ETOMIDATE 2 MG/ML 10 ML VIAL ONE (07:59)
[2017-05-21] MEDS ORDERED: ROCURONIUM BROMIDE 10 MG/ML 10 ML VIAL IV ONE (07:59)
[2017-05-21] MEDS ORDERED: SUCCINYLCHOLINE CHLORIDE 100 MG/5 ML SYR IV ONE (07:59)
[2017-05-21] MEDS ORDERED: INDOCYANINE GREEN 25 MG VIAL IV STA (08:11)
[2017-05-21] MEDS ORDERED: BUPIVACAINE-EPI 0.5%-1:200,000 10 ML VIAL SQ ONE (08:47)
[2017-05-21] MEDS ORDERED: ONDANSETRON 4 MG/2 ML VIAL IVP PRN (09:57)
[2017-05-21] MEDS ORDERED: NALOXONE 0.4 MG/ML 1 ML VIAL IV PRN (09:57)
[2017-05-21 10:03] LABS: Glucose,Whole Blood 252 mg/dL (75-99)
[2017-05-21 10:07] VITALS: TEMP 98.8
--- NOTE | 2017-05-21 10:13 | P.PCN ---
Date of Procedure: 05/21/17 Preoperative Diagnosis: Symptomatic cholelithiasis Postoperative Diagnosis: Same, cirrhosis of the liver, hepatomegaly, cardiomyopathy, diabetes type 2 poorly controlled Procedure(s) Performed: Robotic da Yohan XI laparoscopic cholecystectomy Anesthesia: PAIGEA, local Surgeon: Melody Norton Estimated Blood Loss (ml): 10 Pathology: other (Gallbladder) Condition: stable Disposition: same day Operative Findings: 1. Severe hepatomegaly with cirrhosis of the liver secondary to fatty liver disease, with micro-nodularity. 2. Decreased flow insufflation at 12 mmHg pressure to minimize cardiac adverse events. 3. Intrahepatic gallbladder adding complexity to the case.
[2017-05-21 11:01] VITALS: RESP 16
[2017-05-21 11:20] LABS: Glucose,Whole Blood 243 mg/dL (75-99)
[2017-05-21 12:06] VITALS: BP 118/67; PULSE 52
--- NOTE | 2017-05-26 12:12 | P.OP ---
Date of Procedure: 05/21/17 Description of Procedure: SURGEON: CONNIE NORTON MD RESEARCH KENNEL SUPERVISOR: Dionne Farah PREOPERATIVE DIAGNOSES: 1. Symptomatic cholelithiasis. 2. Family history of gallbladder disease. 3. Diabetes type 2, poorly controlled. 4. Body mass index 61.3. 5. Ischemic cardiomyopathy. 6. Right upper quadrant abdominal pain. 7. Gastroesophageal reflux disease. 8. History of open coronary artery bypass. 9. Medical noncompliance to care. POSTOPERATIVE DIAGNOSES: PREOPERATIVE DIAGNOSES: 1. Acute on chronic cholecystitis with gallstones. 2. Family history of gallbladder disease. 3. Diabetes type 2, poorly controlled. 4. Body mass index 61.3. 5. Ischemic cardiomyopathy. 6. Right upper quadrant abdominal pain. 7. Gastroesophageal reflux disease. 8. History of open coronary artery bypass. 9. Medical noncompliance to care. 10. Micronodular liver cirrhosis. 11. Severe hepatomegaly. 12. History of ejection fraction 25%. OPERATION: Robotic-assisted da Yohan Xi laparoscopic cholecystectomy, multiport. ESTIMATED BLOOD LOSS: 10 mL. SPECIMENS REMOVED: Gallbladder. COMPLICATIONS: None. OPERATIVE FINDINGS: 1. Severe hepatomegaly with cirrhosis of the liver secondary to fatty liver disease, with micro-nodularity. 2. Decreased flow insufflation at 12 mmHg pressure to minimize cardiac adverse events. 3. Intrahepatic gallbladder adding complexity to the case. INDICATIONS: The patient is a 52-year-old male who presents with symptomatic gallstones and chronic cholelcystitis. Surgical intervention with a laparoscopic cholecystectomy was described at length including injury to the biliary tree, bleeding, infection, need for further surgery. Informed consent was obtained. Robotic assisted laparoscopic approach was described. Benefits and risks of the procedure including but not limited to bleeding, infection, injury to the biliary tree was described. Informed consent was obtained. DESCRIPTION OF PROCEDURE: Patient was brought to the operating room, placed in supine position. After general induction, the abdomen had been prepped and draped in standard sterile fashion. The robotic da Yohan Xi system was primed. After a timeout protocol was performed, the patient had been prepped and draped in standard sterile fashion. The robot was docked along the right lateral abdomen. The patient was repositioned in reverse Trendelenburg position. Please note prior to docking of the robot; however, a 5 mm 0 degrees laparoscopic trocar entry was performed along the left upper quadrant initially under very low flow given the patient's poor cardiac status. Next, two 8 mm robotic ports were placed along the right upper abdomen. The camera 8-mm port was maintained along the epigastrium. Another 8 mm port was placed along the left upper abdominal wall after exchanging the 5 mm port. Please note that the ports were placed at least 10 to 15 cm away from the target anatomy of the gallbladder. Using a grasper for arm 3, a grasper for arm 2, including hook cautery for arm 1 , the robotic system was docked and primed as described. Instruments were interchanged by the food and beverage assistant manager including hook cautery, Bovie cautery scissors and clip appliers. I had sat at the console. Adhesions were identified along the infundibulum of the gallbladder and addressed using hook cautery including blunt dissection with a long forceps grasper. The gallbladder was moderately dense with liver surface consistent with moderate to severe cirrhosis. The gallbladder was also intrahepatic adding complexity to the case. The gallbladder fundus was retracted over the dome of the liver. Initial attention was brought to the infundibulum which was gently retracted in the inferior lateral approach. Using a grasper, the cystic duct including the cystic artery was carefully skeletonized. Using a clip metallography teacher 2 large clips were placed proximally, and 1 clip was placed distally along the cystic duct and then cauterized with the cautery. Again care was taken to avoid any injury to the biliary tree as the common bile duct was clearly visualized during this portion of dissection. Next, the cystic artery was cauterized. Electro-Bovie cautery was used to remove the gallbladder from the hepatic fossa without decompression of the gallbladder. Hemostasis was checked and found to be adequate. The robot was undocked. I re-scrubbed into the case. Using a 10 mm Endo Catch bag via the 12 mm port, the specimen was removed from the abdominal cavity. The 12 mm port site was oversewn using 0 Vicryl including a Cr Miles as well. All pneumoperitoneum instruments were evacuated from the abdominal cavity. The incisions were reapproximated using 4-0 Monocryl in an interrupted subcuticular fashion. Please note along the trocar sites, local anesthetic was placed as a field block prior to insertion of all instruments. Dermabond was applied to the skin. At the end of the procedure needle, sponge, and instrument count had been verified correct by the surgical garment assembler. The patient was transferred to postanesthesia care unit in stable condition. Intraoperative films were shared with the patient's family who were very pleased with the level of care. Plan - Discharge Summary New Discharge Prescriptions: New Ibuprofen [Motrin] 600 mg PO Q8HR PRN #30 tab PRN Reason: Pain No Action Aspirin 162.5 mg PO BID Atorvastatin [Lipitor] 80 mg PO HS metFORMIN HCL 1,000 mg PO BID #60 tab Digoxin [Lanoxin] 125 mcg PO DAILY Ascorbic Acid [Vitamin C] 500 mg PO Q2D glipiZIDE [Glucotrol] 10 mg PO AC-BRKFST amLODIPine [Norvasc] 2.5 mg PO DAILY Spironolactone [Aldactone] 25 mg PO DAILY Metoprolol Succinate [Toprol XL] 50 mg PO DAILY Magnesium Oxide [Mag-Oxide] 200 mg PO DAILY Cholecalciferol [Vitamin D3] 400 unit PO DAILY Budesonide-Formot 160-4.5 Mcg [Symbicort 160-4.5 Mcg Inhaler] 2 puff INHALATION BID Discharge Medication List Aspirin 162.5 mg PO BID 11/25/16 [History] Atorvastatin [Lipitor] 80 mg PO HS 11/25/16 [History] metFORMIN HCL 1,000 mg PO BID #60 tab 11/27/16 [Rx] Ascorbic Acid [Vitamin C] 500 mg PO Q2D 03/31/17 [History] Digoxin [Lanoxin] 125 mcg PO DAILY 03/31/17 [History] Metoprolol Succinate [Toprol XL] 50 mg PO DAILY 03/31/17 [History] Spironolactone [Aldactone] 25 mg PO DAILY 03/31/17 [History] amLODIPine [Norvasc] 2.5 mg PO DAILY 03/31/17 [History] glipiZIDE [Glucotrol] 10 mg PO AC-BRKFST 03/31/17 [History] Budesonide-Formot 160-4.5 Mcg [Symbicort 160-4.5 Mcg Inhaler] 2 puff INHALATION BID 05/19/17 [History] Cholecalciferol [Vitamin D3] 400 unit PO DAILY 05/19/17 [History] Magnesium Oxide [Mag-Oxide] 200 mg PO DAILY 05/19/17 [History] Ibuprofen [Motrin] 600 mg PO Q8HR PRN #30 tab 05/21/17 [Rx] Follow up Appointment(s)/Referral(s): Connie Norton MD [STAFF PHYSICIAN] - 05/25/17 4:15 pm Patient Instructions/Handouts: Cirrhosis (GEN), Low Fat Diet (DC), Laparoscopic Cholecystectomy (DC) Activity/Diet/Wound Care/Special Instructions: Fat free diet. Leave adhesive in place, DO NOT pick, pill, or scratch. OK to shower tomorrow. Discharge Disposition: HOME SELF-CARE
== END 2017-05-21 13:07 | disposition home or self-care (01) ==
LOC: OR 06:33
PROVIDERS: ATTEND Surgery Plastic and Reconstructive Surgery
DX: K80.12 Calculus of gallbladder with acute and chronic cholecystitis without obstruction (principal); Q44.1 Other congenital malformations of gallbladder; K76.0 Fatty (change of) liver, not elsewhere classified; K74.69 Other cirrhosis of liver; R16.0 Hepatomegaly, not elsewhere classified; Z83.79 Family history of other diseases of the digestive system; E11.65 Type 2 diabetes mellitus with hyperglycemia; I11.0 Hypertensive heart disease with heart failure; I50.9 Heart failure, unspecified; I25.5 Ischemic cardiomyopathy; K21.9 Gastro-esophageal reflux disease without esophagitis; Z95.1 Presence of aortocoronary bypass graft; I25.2 Old myocardial infarction; I25.10 Atherosclerotic heart disease of native coronary artery without angina pectoris; E78.5 Hyperlipidemia, unspecified; J44.9 Chronic obstructive pulmonary disease, unspecified; I69.328 Other speech and language deficits following cerebral infarction; Z79.84 Long term (current) use of oral hypoglycemic drugs; Z79.82 Long term (current) use of aspirin; Z79.51 Long term (current) use of inhaled steroids; Z79.899 Other long term (current) drug therapy; Z88.5 Allergy status to narcotic agent; Z91.048 Other nonmedicinal substance allergy status; Z88.0 Allergy status to penicillin; Z88.2 Allergy status to sulfonamides; F17.200 Nicotine dependence, unspecified, uncomplicated
CPT/HCPCS: 88304; 47562; J2250; J1644; J2405; J3010; J1885; J1580; J0330

== ENCOUNTER 2018-03-08 14:41 | Emergency (ER) | payer OTHER ==
[2018-03-08 14:51] VITALS: RESP 18
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
[2018-03-08 15:37] LABS: Amphetamine Screen,Urine Not Detected (NotDetected); Barbiturate Screen,Urine Not Detected (NotDetected); Benzodiazepines Screen,Urine Not Detected (NotDetected); Cocaine Screen,Urine Not Detected (NotDetected); Methadone Screen, Urine Not Detected (NotDetected); Opiate Screen,Urine Not Detected (NotDetected); Oxycodone Screen, Urine Not Detected (NotDetected); Phencyclidine Screen,Urine Not Detected (NotDetected); Tricyclic Antidepressant,Urine Not Detected (NotDetected); Urn Cannabinoid Scrn Not Detected (NotDetected)
[2018-03-08] MEDS ORDERED: NICOTINE 21MG/24HR PATCH TRANSDERM STA (16:39)
[2018-03-08 17:50] LABS: Appearance,Urine Cloudy (Clear); Bilirubin,Urine Negative (Negative); Blood,Urine Negative (Negative); Calcium Oxalate Crystals,Urine Moderate /hpf; Color,Urine Yellow; Glucose,Urine (UA) 4+ (Negative); Hyaline Casts,Urine 21 /lpf (0-2); Ketones,Urine Negative (Negative); Leukocyte Esterase,Urine Negative (Negative); Mucus,Urine Occasional /hpf; Nitrite,Urine Negative (Negative); PH, Urine 5.5 (5.0-8.0); Protein,Urine 1+ (Negative); RBC,Urine 4 /hpf (0-5); Specific Gravity,Urine 1.023 (1.001-1.035); WBC,Urine 1 /hpf (0-5)
[2018-03-08 18:08] LABS: Basophils # (A) 0.1 k/uL (0-0.2); Basophils % (A) 1 %; Eosinophils # (A) 0.4 k/uL (0-0.7); Eosinophils % (A) 3 %; HGB 15.4 gm/dL (13.0-17.5); Lymphocytes # (A) 3.1 k/uL (1.0-4.8); Lymphocytes % (A) 26 %; MCH 29.2 pg (25.0-35.0); MCHC 32.1 g/dL (31.0-37.0); MCV 91.1 fL (80.0-100.0); Mean Platelet Volume 6.9; Monocytes # (A) 0.6 k/uL (0-1.0); Monocytes % (A) 5 %; Neutrophils # (A) 7.6 k/uL (1.3-7.7); Neutrophils % (A) 64 %; Platelet Count 265 k/uL (150-450); RBC 5.27 m/uL (4.30-5.90); RDW 12.9 % (11.5-15.5); WBC 11.9 k/uL (3.8-10.6)
[2018-03-08 18:19] LABS: ALT 44 U/L (21-72); AST 26 U/L (17-59); Albumin 3.9 g/dL (3.5-5.0); Alkaline Phosphatase 109 U/L (38-126); Anion Gap 9 mmol/L; Calcium 9.4 mg/dL (8.4-10.2); Carbon Dioxide 25 mmol/L (22-30); Chloride 103 mmol/L (98-107); Glucose 265 mg/dL (74-99); Potassium 4.1 mmol/L (3.5-5.1); Sodium 137 mmol/L (137-145); Total Bilirubin 0.8 mg/dL (0.2-1.3); Total Protein 6.6 g/dL (6.3-8.2)
[2018-03-08 18:35] LABS: Blood Urea Nitrogen 13 mg/dL (9-20)
[2018-03-08] MEDS ORDERED: ATORVASTATIN 80 MG TAB PO STA (20:28)
[2018-03-08] MEDS ORDERED: amLODIPine 5 MG TAB PO STA (20:28)
[2018-03-08] MEDS ORDERED: DIGOXIN 125 MCG TAB PO STA (20:28)
[2018-03-08] MEDS ORDERED: MAGNESIUM OXIDE 400 MG TAB PO STA (20:28)
[2018-03-08] MEDS ORDERED: metFORMIN 500 MG TAB PO STA (20:28)
[2018-03-08 20:37] LABS: Glucose,Whole Blood 282 mg/dL (75-99)
[2018-03-08 20:41] VITALS: BP 167/84; PULSE 60; TEMP 98
[2018-03-08] MEDS ORDERED: INSULIN ASPART 100 UNIT/ML 1 ML 10 ML VIAL SQ ONE (20:42)
== END 2018-03-08 23:00 ==
LOC: EC 14:41
DX: F32.9 Major depressive disorder, single episode, unspecified (principal); R45.851 Suicidal ideations; F17.200 Nicotine dependence, unspecified, uncomplicated; I25.10 Atherosclerotic heart disease of native coronary artery without angina pectoris; I11.0 Hypertensive heart disease with heart failure; I50.9 Heart failure, unspecified; E78.5 Hyperlipidemia, unspecified; E11.9 Type 2 diabetes mellitus without complications; I25.2 Old myocardial infarction; Z86.73 Personal history of transient ischemic attack (TIA), and cerebral infarction without residual deficits; Z95.1 Presence of aortocoronary bypass graft; Z95.818 Presence of other cardiac implants and grafts; Z79.82 Long term (current) use of aspirin; Z79.51 Long term (current) use of inhaled steroids; Z79.899 Other long term (current) drug therapy; Z88.5 Allergy status to narcotic agent; Z91.048 Other nonmedicinal substance allergy status; Z88.0 Allergy status to penicillin; Z88.2 Allergy status to sulfonamides; Z53.20 Procedure and treatment not carried out because of patient's decision for unspecified reasons
CPT/HCPCS: 82075; 36415; 80053; 85025; 81001; 80306; 99285; S4990

== ENCOUNTER 2018-08-25 13:47 | Inpatient (IN) | payer OTHER ==
[2018-08-25] MEDS ORDERED: ASPIRIN 81 MG PO STA (15:27)
[2018-08-25] MEDS ORDERED: NITROGLYCERIN OINT 1 INCH/GM PACKET TOPICAL STA (15:27)
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
--- NOTE | 2018-08-25 16:18 | XR ---
EXAMINATION TYPE: XR chest 2V DATE OF EXAM: 08/25/2018 COMPARISON: Prior chest x-ray 11/25/2016 HISTORY: Difficulty breathing, cough and chest pain TECHNIQUE: Frontal and lateral views of the chest are obtained. FINDINGS: There is no focal air space opacity, pleural effusion, or pneumothorax seen. The cardiac silhouette size is stable, borderline enlarged. Patient is post median sternotomy. Prominent lung vol ume may be indicative of COPD. There are coronary calcifications. The osseous structures are intact. IMPRESSION: No acute cardiopulmonary process.
[2018-08-25 16:27] LABS: Basophils # (A) 0.1 k/uL (0-0.2); Basophils % (A) 1 %; Eosinophils # (A) 0.2 k/uL (0-0.7); Eosinophils % (A) 2 %; HCT 50.1 % (39.0-53.0); HGB 16.5 gm/dL (13.0-17.5); Lymphocytes # (A) 1.6 k/uL (1.0-4.8); Lymphocytes % (A) 17 %; MCHC 32.9 g/dL (31.0-37.0); MCV 91.1 fL (80.0-100.0); Mean Platelet Volume 7.2; Monocytes # (A) 0.6 k/uL (0-1.0); Monocytes % (A) 6 %; Neutrophils # (A) 6.8 k/uL (1.3-7.7); Neutrophils % (A) 73 %; Platelet Count 226 k/uL (150-450); RBC 5.51 m/uL (4.30-5.90); RDW 12.9 % (11.5-15.5); WBC 9.4 k/uL (3.8-10.6)
[2018-08-25 16:32] LABS: Partial Thromboplastin Time 25.1 sec (22.0-30.0); Prothrombin Time 10.3 sec (9.0-12.0)
[2018-08-25 16:38] LABS: ALT 53 U/L (21-72); AST 46 U/L (17-59); Albumin 4.3 g/dL (3.5-5.0); Alkaline Phosphatase 94 U/L (38-126); Anion Gap 10 mmol/L; Blood Urea Nitrogen 15 mg/dL (9-20); Calcium 9.5 mg/dL (8.4-10.2); Carbon Dioxide 26 mmol/L (22-30); Chloride 101 mmol/L (98-107); Glucose 219 mg/dL (74-99); Potassium 4.7 mmol/L (3.5-5.1); Sodium 137 mmol/L (137-145); Total Bilirubin 1.2 mg/dL (0.2-1.3); Total Protein 7.4 g/dL (6.3-8.2)
[2018-08-25 16:54] LABS: Creatine Kinase MB 6.2 ng/mL (0.0-2.4)
[2018-08-25 16:58] LABS: Troponin I 0.048 ng/mL (0.000-0.034)
[2018-08-25] MEDS ORDERED: HEPARIN SODIUM,PORCINE 5,000 UNIT/ML 1 ML VIAL IV ONE (17:59)
[2018-08-25] MEDS ORDERED: HEPARIN SOD,PORK IN 0.45% NACL 25,000 UNIT in 0.45% NACL 1 250ML.BAG IV SCH (18:00)
[2018-08-25] MEDS ORDERED: NITROGLYCERIN SL TABS 0.4 MG TAB SUBLINGUAL PRN (18:39)
[2018-08-25] MEDS ORDERED: NICOTINE 14MG/24HR PATCH TRANSDERM STA (21:34)
[2018-08-25 23:12] LABS: Creatine Kinase MB 4.3 ng/mL (0.0-2.4)
[2018-08-25 23:18] LABS: Troponin I 0.052 ng/mL (0.000-0.034)
[2018-08-26] MEDS: amLODIPine 2.5 MG TAB PO SCH ×2 (00:54→10:22)
[2018-08-26] MEDS: ATORVASTATIN 80 MG TAB PO SCH ×2 (00:54→20:21)
[2018-08-26] MEDS: MAGNESIUM OXIDE 400 MG TAB PO SCH ×2 (00:54→20:21)
[2018-08-26] MEDS: DIGOXIN 125 MCG TAB PO SCH ×2 (00:54→20:20)
[2018-08-26] MEDS: DULoxetine HCL 30 MG CAPSULE.DR PO SCH ×3 (00:54→20:20)
[2018-08-26] MEDS ORDERED: ALPRAZolam 0.25 MG TAB PO PRN ×2 (01:00→09:14)
[2018-08-26] MEDS ORDERED: TEMAZEPAM 15 MG CAP PO PRN (01:00)
[2018-08-26] MEDS: NITROGLYCERIN OINT 1 INCH/GM PACKET TOPICAL SCH ×3 (02:21→12:13)
[2018-08-26 04:46] LABS: Cholesterol 89 mg/dL (<200); HDL Cholesterol 29 mg/dL (40-60); LDL Cholesterol,Calculated 39 mg/dL (0-99); Triglycerides 104 mg/dL (<150)
[2018-08-26 04:59] LABS: Creatine Kinase MB 2.9 ng/mL (0.0-2.4)
[2018-08-26 05:07] LABS: Troponin I 0.044 ng/mL (0.000-0.034)
[2018-08-26 06:10] LABS: Glucose,Whole Blood 168 mg/dL (75-99)
[2018-08-26] MEDS: PANTOPRAZOLE 40 MG TABLET PO SCH (06:30)
[2018-08-26] MEDS: INSULIN ASPART (NovoLOG) 100 UNIT/ML VIAL SQ SCH ×4 (06:40→21:31)
[2018-08-26] MEDS: SYMBICORT 160-4.5 MCG INHALER INHALATION SCH ×2 (07:37→19:22)
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
[2018-08-26] MEDS ORDERED: ASPIRIN 325 MG TAB PO SCH (09:00)
[2018-08-26] MEDS ORDERED: NICOTINE 14MG/24HR PATCH TRANSDERM SCH (09:00)
[2018-08-26] MEDS ORDERED: ASPIRIN 325 MG TAB PO STA (09:14)
[2018-08-26] MEDS ORDERED: ALPRAZolam 0.5 MG TAB PO PRN (09:14)
[2018-08-26] MEDS ORDERED: SODIUM CHLORIDE 0.9% 1,000 ML in EMPTY BAG 1 BAG IV ONE (09:14)
[2018-08-26] MEDS ORDERED: NITROGLYCERIN SL TABS 0.4 MG TAB SUBLINGUAL PRN ×2 (09:14→15:23)
[2018-08-26] MEDS ORDERED: ATORVASTATIN 80 MG TAB PO STA (09:14)
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
[2018-08-26] MEDS: ASCORBIC ACID 500 MG TAB PO SCH (10:22)
[2018-08-26] MEDS: METOPROLOL SUCCINATE (ER) 50 MG TAB.ER.24H PO SCH ×2 (10:23→10:24)
[2018-08-26] MEDS: SPIRONOLACTONE 25 MG TAB PO SCH (10:24)
[2018-08-26] MEDS ORDERED: HEPARIN SODIUM,PORCINE 5,000 UNIT/ML 1 ML VIAL IV PRN (10:26)
[2018-08-26] MEDS: CHOLECALCIFEROL 400 UNIT TAB PO SCH (10:36)
--- NOTE | 2018-08-26 10:47 | US ---
EXAMINATION TYPE: US venous doppler duplex LE DATE OF EXAM: 08/26/2018 10:19 AM COMPARISON: NONE CLINICAL HISTORY: Rule out DVT. Leg pain SIDE PERFORMED: Bilateral TECHNIQUE: The lower extremity deep venous system is examined utilizing real time linear array sonog huey with graded compression, doppler sonography and color-flow sonography. VESSELS IMAGED: External Iliac Vein (EIV) Common Femoral Vein Deep Femoral Vein Greater Saphenous Vein * Femoral Vein Popliteal Vein Small Saphenous Vein * Proximal Calf Veins (* superficial vessels) There is normal flow, compressibility, vascular waveforms. Right Leg: Negative for DVT Left Leg: Negative for DVT IMPRESSION: No evident deep venous thrombosis at or above the knees. Follow-up as indicated.
[2018-08-26 11:29] LABS: Glucose,Whole Blood 168 mg/dL (75-99)
--- NOTE | 2018-08-26 12:03 | CONS ---
CONSULTATION Mr. Javed is a 53-year-old male with known history of coronary artery disease, status post bypass grafting, history of chronic tobacco use, has been followed by Dr. Moser and presented with symptoms of chest discomfort. His symptoms were proceeded with the cough and upper respiratory infection. Patient has some heaviness but he felt that some of the heaviness was worse when he was coughing. He denies any dizziness, palpitation. He has no PND, orthopnea, although he has some discomfort in the leg. He has no malignant arrhythmia. In the past, he has known history of severe cardiomyopathy. Patient has a known history of chronic tobacco use and unfortunately continues to smoke about a pack a day. Has not been followed by Dr. Moser on a regular basis. He had a prior history of noncompliance. His coronary risk factors are remarkable for the smoking. He has a history of diabetes, hypertension, and hyperlipidemia. MEDICATIONS: Include aspirin, Lipitor 80 mg daily, Symbicort, Cymbalta, Lanoxin 0.125 mg daily, Toprol-XL 50 mg daily, Aldactone 25 mg daily, amlodipine 2.5 mg twice a day, metformin 1 g twice a day. REVIEW OF SYSTEMS: RESPIRATORY SYSTEM: He has wheezing, no cough. He has history of dyspnea on exertion. GI SYSTEM: No recent GI bleeding. No peptic ulcer disease. SYSTEM: No dysuria, hematuria. NERVOUS SYSTEM: No seizure. SOCIAL HISTORY: He denies any alcohol intake. PHYSICAL EXAMINATION: A 53-year-old male, alert, oriented, in no apparent distress. Blood pressure 140/80 with a heart rate in 90s. HEAD: Normocephalic. EYES: Sclerae nonicteric. NECK: Good upstroke, no bruit, no jugular venous distention. LUNGS: There is mild decrease in breath sounds, no wheezes. HEART: Regular rate and rhythm, S1, S2. No S3. No rub or gallop with a systolic murmur. ABDOMEN: Soft, nontender. Positive bowel sounds, no organomegaly. EXTREMITIES: No edema. 2+ distal pulses. LAB DATA: Troponin 0.048, 0.052, 0.044. Cholesterol of 89, LDL of 39, BUN and creatinine 15 and 0.9, hemoglobin of 16.5. EKG revealed a sinus mechanism, normal axis with evidence of left ventricular hypertrophy. Nonspecific ST-T wave changes. Chest x-ray shows no acute infiltrate. IMPRESSION: 1. Symptoms of chest discomfort with mild elevation of troponin. Possible non ST- segment elevation myocardial infarction. 2. Status post coronary artery bypass grafting with WALLACE to LAD, saphenous vein graft to OM 1 and 3. Patient has underwent repeat cardiac catheterization in 2008, at that time had a patent graft with totally occluded LAD, right coronary artery and circumflex. 3. History of chronic tobacco use. 4. Hypertension. 5. Hyperlipidemia. 6. Diabetes mellitus. 7. Ischemic cardiomyopathy. RECOMMENDATION: Recommend to proceed with cardiac catheterization to further assess his status and guide his treatment. The rationale behind the procedure, its risks and complication were discussed with the patient who is in full understanding and agreement. Thank you for this consult. Will follow with you. HOA / IJN: [id number] /
[2018-08-26 12:48] LABS: Hemoglobin A1C 10.9 % (4.0-6.0)
--- NOTE | 2018-08-26 12:50 | ECHOF ---
Referral Reason:cad MEASUREMENTS -------- HEIGHT: 180.3 cm WEIGHT: 85.3 kg BP: 140/82 RVIDd: 3.4 cm (< 3.3) IVSd: 1.5 cm (0.6 - 1.1) LVIDd: 6.3 cm (3.9 - 5.3) LVPWd: 1.3 cm (0.6 - 1.1) IVSs: 1.9 cm LVIDs: 5.3 cm LVPWs: 1.8 cm LA Diam: 4.2 cm (2.7 - 3.8) LAESV Index (A-L): 37.55 ml/m Ao Diam: 3.7 cm (2.0 - 3.7) AV Cusp: 2.3 cm (1.5 - 2.6) MV EXCURSION: 19.848 mm (> 18.000) MV EF SLOPE: 83 mm/s (70 - 150) EPSS: 2.1 cm MV E Sedrick: 1.06 m/s MV DecT: 124 ms MV A Sedrick: 0.67 m/s MV E/A Ratio: 1.58 RAP: 15.00 mmHg RVSP: 34.79 mmHg FINDINGS -------- Sinus rhythm. This was a technically good study. The left ventricle is mildly dilated. There is moderate concentric left ventricular hypertrophy. There is severe global hypokinesis of LV . Overall left ventricular systolic function is severely i mpaired with, an EF between 25 - 30 %. Apical septum LV wall motion is hypokinetic. The right ventricle is normal in size. LA is moderately dilated 34-39 ml/m2 The right atrium is normal in size. 5.0mg of Lumason was utilized for enhancement of images The aortic valve is trileaflet and appears structurally normal. There is trace mitral regurgitation. Mild tricuspid regurgitation present. There is mild pulmonary hypertension. The right ventricular systolic pressure, as measured by Doppler, is 34.79mmHg. There is no pulmonic regurgitation present. The aortic root size is normal. Normal inferior vena cava with less than 50% inspiratory collapse consistent with estimated right atr ial pressure of 15 mmHg. There is no pericardial effusion. CONCLUSIONS -------- 1. Sinus rhythm. 2. This was a technically good study. 3. The left ventricle is mildly dilated. 4. There is moderate concentric left ventricular hypertrophy. 5. There is severe global hypokinesis of LV . 6. Overall left ventricular systolic function is severely impaired with, an EF between 25 - 30 %. 7. Apical septum LV wall motion is hypokinetic. 8. The right ventricle is normal in size. 9. LA is moderately dilated 34-39 ml/m2 10. The right atrium is normal in size. 11. 5.0mg of Lumason was utilized for enhancement of images 12. The aortic valve is trileaflet and appears structurally normal. 13. There is trace mitral regurgitation. 14. Mild tricuspid regurgitation present. 15. There is mild pulmonary hypertension. 16. The right ventricular systolic pressure, as measured by Doppler, is 34.79mmHg. 17. There is no pulmonic regurgitation present. 18. The aortic root size is normal. 19. Normal inferior vena cava with less than 50% inspiratory collapse consistent with estimated right atrial pressure of 15 mmHg. 20. There is no pericardial effusion. GENETIC COUNSELLOR: Felicia Toney RDCS
[2018-08-26] MEDS ORDERED: fentaNYL (PF) 50 MCG/ML 2 ML AMP ONE (14:02)
[2018-08-26] MEDS ORDERED: LIDOCAINE 1% INJ 10MG/ML (20 ML MDV) ONE (14:02)
[2018-08-26] MEDS ORDERED: IV FLUID CONTINUATION 1,000 ML IV ONE (14:25)
[2018-08-26] MEDS ORDERED: fentaNYL (PF) 50 MCG/ML 2 ML AMP IVP ONE (14:39)
[2018-08-26] MEDS ORDERED: LIDOCAINE 1% INJ 10MG/ML (20 ML MDV) SQ ONE (14:41)
[2018-08-26] MEDS ORDERED: PRASUGREL 10 MG TAB ONE (14:58)
[2018-08-26] MEDS ORDERED: PRASUGREL 10 MG TAB PO ONE (15:00)
[2018-08-26] MEDS ORDERED: BIVALIRUDIN BOLUS 250 MG/50 ML IV ONE (15:01)
[2018-08-26] MEDS ORDERED: BIVALIRUDIN 250 MG in SODIUM CHLORIDE 0.9% 50 ML IV ONE (15:02)
[2018-08-26] MEDS ORDERED: SODIUM CHLORIDE 0.9% 1,000 ML IV ONE (15:05)
[2018-08-26] MEDS ORDERED: IOPAMIDOL-370 125ML BTL INJ ONE (15:06)
[2018-08-26] MEDS ORDERED: IOPAMIDOL-370 100ML BTL INJ ONE (15:14)
[2018-08-26] MEDS ORDERED: MAG HYDROX/AL HYDROX/SIMETH 30 ML CUP PO PRN (15:23)
[2018-08-26] MEDS ORDERED: ZOLPIDEM 5 MG TAB PO PRN (15:23)
[2018-08-26] MEDS ORDERED: RX INFO: IV CONTRAST WAS GIVEN 1 EACH MISC MISCELLANE PRN (15:23)
[2018-08-26] MEDS ORDERED: ATROPINE SULFATE 0.1 MG/ML 10ML SYRINGE IV PRN (15:23)
[2018-08-26] MEDS ORDERED: SODIUM CHLORIDE 0.9% 1,000 ML IV SCH (15:30)
--- NOTE | 2018-08-26 16:06 | CC ---
CARDIAC CATHETERIZATION REPORT Mr. Javed is a 53-year-old male with a known history of coronary disease status post bypass grafting, history of ischemic cardiomyopathy, hypertension, hyperlipidemia, and chronic tobacco use, who presented with symptoms of dyspnea, cough as well as elevation of the troponin and chest discomfort. In view of that, recommendation made regarding cardiac catheterization. The procedures as well as risks and complications were discussed with the patient who is in full understanding and agreement. PROCEDURE: Patient was brought to the soap slabber in a fasting semi sedated state after receiving fentanyl and Benadryl and achieving moderate conscious sedated state. Using Xylocaine anesthesia and Seldinger technique, a 6-Algerian sheath was introduced in the right femoral artery. Selective right and left angiography was performed using 6-Algerian 4 bend right and left Kera catheter. Multiple views of the coronary artery including hemiaxial views were obtained. Following that the 6-Algerian right Kera was used to cannulate the saphenous vein graft to the OM 1 and 2 and images of the grafts were obtained. Following that, an ED catheter was used to obtain images of the WALLACE to the LAD. Following that, angioplasty and stenting was performed. Following that 6-Algerian tight pigtail catheter was introduced in the left ventricle and a 30 degree LOPEZ view of the left ventricle was obtained. Following that, catheter and sheaths were removed. Hemostasis was obtained with deployment of an Angio-Seal. There was no immediate complication. Patient is returned to his room in stable condition. FINDINGS: CORONARY ANGIOGRAPHY: LEFT MAIN: This is a large-sized vessel bifurcating into the left circumflex, left anterior descending artery, left main coronary artery has a 70% plaque in the mid segment. LEFT ANTERIOR DESCENDING CORONARY ARTERY: This vessel is totally occluded proximally with no antegrade flow. LEFT CIRCUMFLEX: This is a nondominant vessel giving rise to a large first obtuse marginal branch that is totally occluded with no significant antegrade flow. The AV groove in the left circumflex is diffusely diseased and the second obtuse marginal branch is totally occluded. RIGHT CORONARY ARTERY: This vessel is totally occluded in the mid segment with ipsilateral collaterals and very slow flow into the distal vessel that appears to be diffusely disease. COLLATERALS: There are collaterals from the left coronary system toward the right PDA. Saphenous vein graft to the obtuse marginal branch 1: The proximal and distal anastomotic sites are patent. The proximal segment of the body of the graft has a 40- 50 percent plaque. The rest of the graft has intimal disease at the distal anastomotic site. There is another 50% plaque. The rest of the vessel is diffusely diseased without any evidence of high-grade stenosis. Saphenous vein graft to the obtuse marginal branch 2: The proximal distal anastomotic sites are patent. The proximal segment of the saphenous vein graft has a 70% plaque. The distal vessel is moderate in caliber and has no evidence of high-grade stenosis. WALLACE to LAD: The distal anastomotic site is patent. The flow into the LAD is brisk. There is retrograde flow into the diagonal branch as well as into the right PDA. LEFT VENTRICULOGRAM: Left ventriculogram was performed in 30-degree LOPEZ view and revealed dilated left ventricle with severe global hypokinesis with ejection fraction of 20%. There was no significant mitral regurgitation. HEMODYNAMICS: There was no gradient across the aortic valve. The left ventricle end-diastolic pressure was 32-36 mmHg. CONCLUSION: 1. Severe triple-vessel disease. 2. Patent WALLACE to LAD. 3. Patent saphenous vein graft to the OM 1 with a 40% to 50% plaque in the proximal segment of the body of the graft. 4. Patent saphenous vein graft to the OM 2 with 70% stenosis in the proximal segment of the body of the graft. 5. Patent WALLACE to LAD. 6. Severely impaired left ventricular systolic function. RECOMMENDATION: In view of findings and anatomy, I have recommend proceeding with angioplasty and stenting of the saphenous vein graft to the OM2. Those findings and recommendations were discussed with the patient and he was in full understanding and agreement. MMODL / IJN: [id number] /
[2018-08-26] MEDS ORDERED: FUROSEMIDE 10 MG/ML 2 ML VIAL IV ONE (16:15)
[2018-08-26 16:31] LABS: Glucose,Whole Blood 131 mg/dL (75-99)
--- NOTE | 2018-08-26 18:50 | PTCA ---
PERCUTANEOUSTRANS CORORONARY ANGIOGRAPHY Mr. Javed is a 53-year-old male with known history of coronary artery disease status post coronary artery bypass grafting and ischemic cardiomyopathy who presented with symptoms of non ST-segment elevation myocardial infarction, underwent cardiac catheterization, was found to have significant stenosis involving the saphenous vein graft to the obtuse marginal branch 2. In view of that, recommendation was made regarding angioplasty and stenting. The procedures as well as risks and complications were discussed with the patient who is in full understanding and agreement. PROCEDURE: 6-Yoruba left coronary artery bypass guiding catheter was introduced into the system. After cannulating the ostium of the graft, a 0.014 balanced medium weight J-wire was advanced across the lesion and positioned distally. Then a 4.0 x 15 mm Xience Marimar stent was deployed. It was at 14 atmospheres. After the last inflation, after appropriate wait, the balloon and the guidewire were withdrawn back in the guiding catheter. Images were obtained and repeated. Those images reveal stable successful stenting. At that point, the guiding catheter, the balloon and the guidewire were removed. A left ventriculogram was performed. Following that, the sheath was removed. There was no immediate complication. Patient was returned to his room in stable condition. Of note, the patient had no chest discomfort with the inflation. He received Angiomax per protocol as well as oral loading dose of Effient. RESULTS: Successful stenting of the proximal segment of the body of the saphenous vein graft to the obtuse marginal branch 2 with reduction of stenosis from 70% to 0%. RECOMMENDATIONS: Patient will be continued on aspirin, Effient, beta catalino, DIAMOND inhibitor, and statin. The importance of dual antiplatelet treatment and smoking cessation were discussed with the patient who is in full understanding and agreement. The patient will need to be evaluated down the road regarding the need to undergo an ICD implantation. Duration of procedure is 41 minutes. MMODL / IJN: [id number] /
[2018-08-26] MEDS: NICOTINE 14MG/24HR PATCH TRANSDERM SCH (20:21)
[2018-08-26] MEDS: LISINOPRIL 5 MG TAB PO SCH (20:21)
[2018-08-26 21:00] LABS: Glucose,Whole Blood 179 mg/dL (75-99)
[2018-08-27 06:00] LABS: Glucose,Whole Blood 181 mg/dL (75-99)
[2018-08-27] MEDS: INSULIN ASPART (NovoLOG) 100 UNIT/ML VIAL SQ SCH ×4 (06:29→20:52)
[2018-08-27] MEDS: PANTOPRAZOLE 40 MG TABLET PO SCH (06:29)
[2018-08-27 07:05] LABS: Anion Gap 8 mmol/L; Blood Urea Nitrogen 17 mg/dL (9-20); Calcium 9.1 mg/dL (8.4-10.2); Carbon Dioxide 26 mmol/L (22-30); Chloride 104 mmol/L (98-107); Glucose 185 mg/dL (74-99); Sodium 138 mmol/L (137-145)
[2018-08-27 07:21] LABS: Potassium 4.3 mmol/L (3.5-5.1)
[2018-08-27] MEDS: SYMBICORT 160-4.5 MCG INHALER INHALATION SCH ×2 (07:55→19:05)
[2018-08-27] MEDS: DULoxetine HCL 30 MG CAPSULE.DR PO SCH ×2 (08:24→20:52)
[2018-08-27] MEDS: LISINOPRIL 5 MG TAB PO SCH ×2 (08:24→20:52)
[2018-08-27] MEDS: ASCORBIC ACID 500 MG TAB PO SCH (08:24)
[2018-08-27] MEDS: PRASUGREL 10 MG TAB PO SCH (08:24)
[2018-08-27] MEDS: CHOLECALCIFEROL 400 UNIT TAB PO SCH (08:24)
[2018-08-27] MEDS: ASPIRIN 81 MG PO SCH (08:24)
[2018-08-27] MEDS: SPIRONOLACTONE 25 MG TAB PO SCH (08:24)
[2018-08-27] MEDS ORDERED: ENOXAPARIN 40 MG/0.4 ML SYRINGE SQ SCH (09:00)
[2018-08-27] MEDS: ACETAMINOPHEN TAB 325 MG TAB PO PRN ×2 (09:50→23:19)
[2018-08-27] MEDS: guaiFENesin SYRUP 100MG/5ML 200 MG/10 ML CUP PO PRN ×3 (09:50→23:20)
[2018-08-27 10:35] VITALS: BMI 25.2
--- NOTE | 2018-08-27 10:41 | P.PN ---
Subjective Progress Note Date: 08/27/18 This is a 53-year-old gentleman with known history of coronary artery disease and prior bypass surgery, chronic nicotine dependence, hyperlipidemia, COPD, diabetes, hypertension, who follows with Dr. Moser in the office. He presented to the hospital with a non-ST elevation myocardial infarction, underwent stent placement of the saphenous vein graft to the obtuse marginal. He was seen and examined this morning, has a productive cough of yellow sputum and feels as though his sinuses are congested but denies any chest discomfort, and breathing overall is stable. Blood pressure 128/60 with a heart rate in the 70s. Sodium 138, potassium 4.3, BUN 17 and creatinine 1.0. Objective - Vital Signs Vital signs: Vital Signs Temp 97.8 F 08/27/18 08:00 Pulse 76 08/27/18 08:00 Resp 18 08/27/18 08:00 BP 128/67 08/27/18 08:00 Pulse Ox 88 L 08/27/18 08:00 Intake & Output 08/26/18 08/27/18 08/27/18 18:59 06:59 18:59 Intake Total 749.577 525 480 Output Total 1550 1500 Balance -800.423 -975 480 Weight 82 kg 82 kg Intake: IV 630 525 0.9 340 525 Heparin Sod,Pork in 0.45% 112 NaCl 25,000 unit In 0.45 % NaCl 1 250ml.bag @ 11. 604 UNITS/KG/HR 10 mls/hr IV .Q24H [facility] Rx#: [id number] Sodium Chloride 0.9% 1, 80 000 ml In Empty Bag 1 bag @ 1 ML/KG/HR 85.4 mls/hr IV .[id number] [facility] Rx#: [id number] Intake, IV Titration 119.577 Amount Heparin Sod,Pork in 0.45% 119.577 NaCl 25,000 unit In 0.45 % NaCl 1 250ml.bag @ 11. 604 UNITS/KG/HR 10 mls/hr IV .Q24H [facility] Rx#: [id number] Oral 480 Output: Urine 1550 1500 Uretheral (Dawkins) 550 500 Other: Voiding Method Toilet Toilet Urinal # Voids 1 - Exam PHYSICAL EXAMINATION: GENERAL: 53-year-old gentleman in no acute distress at the time of my examination HEENT: Head is atraumatic, normocephalic. Pupils equal, round. Sclera anicteric. Conjunctiva are clear. Mucous membranes of the mouth are moist. Neck is supple. There is no elevated jugular venous pressure. No carotid bruit is heard. HEART EXAMINATION: Heart S1, S2 normal. No murmur or gallop heard. CHEST EXAMINATION: Lungs reveal scattered coarse rhonchi and wheezing throughout ABDOMEN: Soft, nontender. Bowel sounds are heard. No organomegaly noted. EXTREMITIES: 2+ peripheral pulses with no evidence of peripheral edema and no calf tenderness noted. Right groin soft, no evidence of any hematoma NEUROLOGIC patient is awake, alert and oriented 3 . . - Labs CBC & Chem 7: 08/25/18 15:55 08/27/18 05:56 Labs: Abnormal Lab Results - Last 24 Hours (Table) 08/26/18 08/26/18 08/26/18 Range/Units 03:58 11:23 16:28 Glucose (74-99) mg/dL POC Glucose (mg/dL) 168 H 131 H (75-99) mg/dL Hemoglobin A1c 10.9 H (4.0-6.0) % 08/26/18 08/27/18 08/27/18 Range/Units 20:59 05:56 05:59 Glucose 185 H (74-99) mg/dL POC Glucose (mg/dL) 179 H 181 H (75-99) mg/dL Hemoglobin A1c (4.0-6.0) % Microbiology - Last 24 Hours (Table) 08/25/18 15:55 Blood Culture - Preliminary Blood No Growth after 24 hours Assessment and Plan Plan: Assessment and plan #1 non-STEMI status post angioplasty and stenting of the SVG to the OM #2 known history of coronary artery disease with prior bypass surgery #3 diabetes #4 hypertension #5 hyperlipidemia #6 nicotine dependence #7 COPD #8 possible tracheobronchitis Plan From cardiology's perspective, patient may be able to be discharged home once cleared by primary. He will have a follow-up appointment in the office with Dr. Love post discharge. Patient will be discharged home on aspirin 81 mg daily, Lipitor 80 mg daily, lisinopril 5 mg twice a day, metoprolol 50 mg daily , nicotine patch, Aldactone 25 mg daily, Effient 10 mg daily, and sublingual nitroglycerin as needed for chest pain. DNP note has been reviewed, I agree with a documented findings and plan of care. Patient was seen and examined.
[2018-08-27 11:37] LABS: Glucose,Whole Blood 228 mg/dL (75-99)
[2018-08-27] MEDS: FLUTICASONE 50MCG/SPRAY NASAL 16GM EA NOSTRIL PRN ×2 (13:36→23:20)
[2018-08-27] MEDS ORDERED: IPRATROPIUM-ALBUTEROL 3 ML NEB INHALATION PRN (15:28)
[2018-08-27 16:35] LABS: Glucose,Whole Blood 207 mg/dL (75-99)
--- NOTE | 2018-08-27 16:44 | XR ---
EXAMINATION TYPE: XR chest 1V DATE OF EXAM: 08/27/2018 COMPARISON: 08/25/2018 HISTORY: Chest pain TECHNIQUE: Single frontal view of the chest is obtained. FINDINGS: There is no heart failure nor confluent pneumonic infiltrate. Costophrenic angles are chidi r. There are sternal wires. There are chest leads. IMPRESSION: No active cardiopulmonary disease. No change.
[2018-08-27] MEDS: methylPREDNISolone SOD SUCCI 125 MG/2 ML VIAL IV SCH ×2 (17:04→22:58)
--- NOTE | 2018-08-27 18:47 | P.PN ---
Subjective This is a pleasant 53 years old male with past medical history of coronary artery disease status post CABG, heart failure, diabetes mellitus, hyperlipidemia, hypertension, CVA/TIA. Is a patient of Dr. curry. He presents because of chest heaviness which thought he is due to his coming called he happen for 3 days, the heaviness 6 hours as mild in the central of the chest with no radiation to the arm back or neck. No pain in the chest or anywhere else. His cough is dry problems with sore throats , associated with sinus disease on both frontal sinuses as per patient. also has cramps in her right leg rather than left leg On admission Vitas looks stable, CBC and BMP were unremarkable. Troponins were elevated 0.04 0.05. Chest x-ray: No acute process. EKG: Normal sinus rhythm at 92, possible anteroseptal infarct but age indeterminant. In the emergency room patient was started on aspirin and heparin drip at the nicotine patch. 08/27/2018 Patient has been evaluated by cardiology team for his non-STEMI and he is a status post stenting and cardiac cath. Patient already feels better with no more chest pain. And patient was cleared by cardiology team for discharge. However patient's become dyspneic moderately with some hypoxia and oxygen was dropped to 88% on room air that he needs is 2-3 L of oxygen via nasal cannula, patient was not on oxygen therapy at home. He was making more phlegm with cough , his phlegm is clear yellow brown in color. He denies chest pain as above. However there is expiratory wheezes on his physical exam. Chest x-ray showing no pneumonia. Patient was kept in the hospital in the select unit and he was a started on oxygen, steroids, antibiotic and a breathing treatment and patient agrees with this plan. CONSTITUTIONAL: No fever, no malaise, no fatigue. HEENT: No recent visual problems or hearing problems. Denied any sore throat. CARDIOVASCULAR: No orthopnea, PND, no palpitations, no syncope. PULMONARY: no hemoptysis. GASTROINTESTINAL: No diarrhea, no nausea, no vomiting, no abdominal pain. Normoactive bowel sounds. NEUROLOGICAL: No headaches, no weakness, no numbness. HEMATOLOGICAL: Denies any bleeding or petechiae. GENITOURINARY: Denies any burning micturition, frequency, or urgency. MUSCULOSKELETAL/RHEUMATOLOGICAL: Denies any joint pain, swelling, or any muscle pain. ENDOCRINE: Denies any polyuria or polydipsia. Medication: Albuterol, Xanax, vitamin C, aspirin, Lipitor, atropine, Symbicort, vitamin D, doxycycline, Cymbalta, Flonase, Robitussin, NovoLog, Zestril, Solu- Medrol, Toprol, nicotine patch, nitroglycerin, Protonix, Effient, Aldactone, and Ambien. Objective - Vital Signs Vital signs: Vital Signs Temp 99.2 F 08/27/18 15:10 Pulse 70 08/27/18 15:10 Resp 18 08/27/18 15:20 BP 123/79 08/27/18 15:10 Pulse Ox 93 L 08/27/18 15:20 Intake & Output 08/26/18 08/27/18 08/27/18 18:59 06:59 18:59 Intake Total 749.577 525 960 Output Total 1550 1500 700 Balance -800.423 -975 260 Weight 82 kg 82 kg Intake: IV 630 525 0.9 340 525 Heparin Sod,Pork in 0.45% 112 NaCl 25,000 unit In 0.45 % NaCl 1 250ml.bag @ 11. 604 UNITS/KG/HR 10 mls/hr IV .Q24H [facility] Rx#: [id number] Sodium Chloride 0.9% 1, 80 000 ml In Empty Bag 1 bag @ 1 ML/KG/HR 85.4 mls/hr IV .[id number] [facility] Rx#: [id number] Intake, IV Titration 119.577 Amount Heparin Sod,Pork in 0.45% 119.577 NaCl 25,000 unit In 0.45 % NaCl 1 250ml.bag @ 11. 604 UNITS/KG/HR 10 mls/hr IV .Q24H [facility] Rx#: [id number] Oral 960 Output: Urine 1550 1500 700 Uretheral (Dawkins) 550 500 Other: Voiding Method Toilet Toilet Urinal # Voids 1 - Exam GENERAL: The patient is alert and oriented x3, not in any acute distress. Well developed, well nourished. HEENT: Pupils are round and equally reacting to light. EOMI. No scleral icterus. No conjunctival pallor. Normocephalic, atraumatic. No pharyngeal erythema. No thyromegaly. CARDIOVASCULAR: S1 and S2 present. No murmurs, rubs, or gallops. -PULMONARY: Chest is clear to auscultation, bilateral expiratory wheezing and prolonged expiration. ABDOMEN: Soft, nontender, nondistended, normoactive bowel sounds. No palpable organomegaly. MUSCULOSKELETAL: No joint swelling or deformity. EXTREMITIES: No cyanosis, clubbing, or pedal edema. NEUROLOGICAL: Gross neurological examination did not reveal any focal deficits. SKIN: No rashes. - Labs CBC & Chem 7: 08/25/18 15:55 08/27/18 05:56 Labs: Abnormal Lab Results - Last 24 Hours (Table) 08/26/18 08/27/18 08/27/18 Range/Units 20:59 05:56 05:59 Glucose 185 H (74-99) mg/dL POC Glucose (mg/dL) 179 H 181 H (75-99) mg/dL 08/27/18 08/27/18 Range/Units 11:23 16:22 Glucose (74-99) mg/dL POC Glucose (mg/dL) 228 H 207 H (75-99) mg/dL Microbiology - Last 24 Hours (Table) 08/25/18 15:55 Blood Culture - Preliminary Blood No Growth after 48 hours Assessment and Plan Assessment: Raul STEMI, status post cardiac cath and stent Acute COPD exacerbation History of coronary artery disease status post CABG Common called, rule out influenza Leg cramps, check Doppler ultrasound History of congestive heart failure History of diabetes mellitus Hyperlipidemia Essential hypertension History of CVA/TIA. Plan: This is a pleasant 53 years old male who presents with heart attack. Continue with heparin drip as per cardiology direction, continue with aspirin, statin and consult enterprise sales person to evaluate patient. Has negative influenza and bilateral lower extremity Doppler: Negative DVT. Continue with steroids, antibiotics and a breathing treatment for his COPD exacerbation Labs and medication were reviewed.. Continue same treatment. Continue with symptomatic treatment. Resume home medication. Monitor lytes and vitals. DVT and GI prophylaxis. Further recommendations of the clinical course of the patient DVT prophylaxis: heparin GI Prophylaxis: Protonix Prognosis is guarded
[2018-08-27 20:37] LABS: Glucose,Whole Blood 255 mg/dL (75-99)
[2018-08-27] MEDS: MAGNESIUM OXIDE 400 MG TAB PO SCH (20:52)
[2018-08-27] MEDS: NICOTINE 14MG/24HR PATCH TRANSDERM SCH ×2 (20:56→22:58)
[2018-08-27] MEDS: ATORVASTATIN 80 MG TAB PO SCH (20:56)
[2018-08-27] MEDS: DOXYCYCLINE 100 MG in SODIUM CHLORIDE 0.9% 100 ML IVPB SCH (22:58)
[2018-08-28 06:05] LABS: Glucose,Whole Blood 188 mg/dL (75-99)
[2018-08-28] MEDS: INSULIN ASPART (NovoLOG) 100 UNIT/ML VIAL SQ SCH ×3 (06:38→17:03)
[2018-08-28] MEDS: PANTOPRAZOLE 40 MG TABLET PO SCH (06:39)
[2018-08-28 06:54] LABS: Anion Gap 8 mmol/L; Blood Urea Nitrogen 23 mg/dL (9-20); Calcium 9.5 mg/dL (8.4-10.2); Carbon Dioxide 24 mmol/L (22-30); Chloride 103 mmol/L (98-107); Glucose 210 mg/dL (74-99); Potassium 4.8 mmol/L (3.5-5.1); Sodium 135 mmol/L (137-145)
[2018-08-28] MEDS: SYMBICORT 160-4.5 MCG INHALER INHALATION SCH ×2 (07:22→20:25)
[2018-08-28] MEDS: DULoxetine HCL 30 MG CAPSULE.DR PO SCH ×2 (08:50→22:13)
[2018-08-28] MEDS: CHOLECALCIFEROL 400 UNIT TAB PO SCH (08:51)
[2018-08-28] MEDS: METOPROLOL SUCCINATE (ER) 50 MG TAB.ER.24H PO SCH (08:51)
[2018-08-28] MEDS: SPIRONOLACTONE 25 MG TAB PO SCH (08:51)
[2018-08-28] MEDS: DOXYCYCLINE 100 MG in SODIUM CHLORIDE 0.9% 100 ML IVPB SCH ×2 (08:51→22:17)
[2018-08-28] MEDS: PRASUGREL 10 MG TAB PO SCH (08:51)
[2018-08-28] MEDS: methylPREDNISolone SOD SUCCI 125 MG/2 ML VIAL IV SCH ×2 (08:51→15:31)
[2018-08-28] MEDS: LISINOPRIL 5 MG TAB PO SCH ×2 (08:51→22:13)
[2018-08-28] MEDS: ASCORBIC ACID 500 MG TAB PO SCH (08:51)
[2018-08-28] MEDS: ASPIRIN 81 MG PO SCH (08:51)
[2018-08-28] MEDS: guaiFENesin SYRUP 100MG/5ML 200 MG/10 ML CUP PO PRN ×2 (08:59→15:30)
[2018-08-28] MEDS: FLUTICASONE 50MCG/SPRAY NASAL 16GM EA NOSTRIL PRN (08:59)
[2018-08-28 11:31] LABS: Glucose,Whole Blood 186 mg/dL (75-99)
[2018-08-28] MEDS: ACETAMINOPHEN TAB 325 MG TAB PO PRN ×2 (12:13→22:14)
--- NOTE | 2018-08-28 13:21 | P.PN ---
Subjective This is a pleasant 53 years old male with past medical history of coronary artery disease status post CABG, heart failure, diabetes mellitus, hyperlipidemia, hypertension, CVA/TIA. Is a patient of Dr. curry. He presents because of chest heaviness which thought he is due to his coming called he happen for 3 days, the heaviness 6 hours as mild in the central of the chest with no radiation to the arm back or neck. No pain in the chest or anywhere else. His cough is dry problems with sore throats , associated with sinus disease on both frontal sinuses as per patient. also has cramps in her right leg rather than left leg On admission Vitas looks stable, CBC and BMP were unremarkable. Troponins were elevated 0.04 0.05. Chest x-ray: No acute process. EKG: Normal sinus rhythm at 92, possible anteroseptal infarct but age indeterminant. In the emergency room patient was started on aspirin and heparin drip at the nicotine patch. 08/27/2018 Patient has been evaluated by cardiology team for his non-STEMI and he is a status post stenting and cardiac cath. Patient already feels better with no more chest pain. And patient was cleared by cardiology team for discharge. However patient's become dyspneic moderately with some hypoxia and oxygen was dropped to 88% on room air that he needs is 2-3 L of oxygen via nasal cannula, patient was not on oxygen therapy at home. He was making more phlegm with cough , his phlegm is clear yellow brown in color. He denies chest pain as above. However there is expiratory wheezes on his physical exam. Chest x-ray showing no pneumonia. Patient was kept in the hospital in the select unit and he was a started on oxygen, steroids, antibiotic and a breathing treatment and patient agrees with this plan. 08/28/2018 Patient was lying in bed, he says his feels lonely Mary Kate but not totally improved he still have a little dyspnea and coughing up stuff. Over his breathing looks better. He is making more, with bringing up more phlegm which he feels good about it. No chest pain. He still wheezing and expiratory phase is prolonged. However patient today complaint to me from dysuria. We'll check urinalysis. CONSTITUTIONAL: No fever, no malaise, no fatigue. HEENT: No recent visual problems or hearing problems. Denied any sore throat. CARDIOVASCULAR: No orthopnea, PND, no palpitations, no syncope. PULMONARY: no hemoptysis. GASTROINTESTINAL: No diarrhea, no nausea, no vomiting, no abdominal pain. Normoactive bowel sounds. NEUROLOGICAL: No headaches, no weakness, no numbness. HEMATOLOGICAL: Denies any bleeding or petechiae. GENITOURINARY: Denies any burning micturition, frequency, or urgency. MUSCULOSKELETAL/RHEUMATOLOGICAL: Denies any joint pain, swelling, or any muscle pain. ENDOCRINE: Denies any polyuria or polydipsia. Medication: Albuterol, Xanax, vitamin C, aspirin, Lipitor, atropine, Symbicort, vitamin D, doxycycline, Cymbalta, Flonase, Robitussin, NovoLog, Zestril, Solu- Medrol, Toprol, nicotine patch, nitroglycerin, Protonix, Effient, Aldactone, and Ambien. Objective - Vital Signs Vital signs: Vital Signs Temp 97 F L 08/28/18 12:10 Pulse 61 08/28/18 12:10 Resp 18 08/28/18 12:10 BP 143/78 08/28/18 12:10 Pulse Ox 96 08/28/18 12:10 Intake & Output 08/27/18 08/28/18 08/28/18 18:59 06:59 18:59 Intake Total 960 420 Output Total 700 0 500 Balance 260 0 -80 Weight 82 kg 83.3 kg Intake: Oral 960 420 Output: Urine 700 0 500 Other: # Voids 1 - Exam GENERAL: The patient is alert and oriented x3, not in any acute distress. Well developed, well nourished. HEENT: Pupils are round and equally reacting to light. EOMI. No scleral icterus. No conjunctival pallor. Normocephalic, atraumatic. No pharyngeal erythema. No thyromegaly. CARDIOVASCULAR: S1 and S2 present. No murmurs, rubs, or gallops. -PULMONARY: Chest is clear to auscultation, bilateral expiratory wheezing and prolonged expiration. ABDOMEN: Soft, nontender, nondistended, normoactive bowel sounds. No palpable organomegaly. MUSCULOSKELETAL: No joint swelling or deformity. EXTREMITIES: No cyanosis, clubbing, or pedal edema. NEUROLOGICAL: Gross neurological examination did not reveal any focal deficits. SKIN: No rashes. - Labs CBC & Chem 7: 02/14/19 15:55 08/28/18 05:52 Labs: Abnormal Lab Results - Last 24 Hours (Table) 08/27/18 08/27/18 08/28/18 Range/Units 16:22 20:35 05:52 Sodium 135 L (137-145) mmol/L BUN 23 H (9-20) mg/dL Glucose 210 H (74-99) mg/dL POC Glucose (mg/dL) 207 H 255 H (75-99) mg/dL 08/28/18 08/28/18 Range/Units 06:03 11:13 Sodium (137-145) mmol/L BUN (9-20) mg/dL Glucose (74-99) mg/dL POC Glucose (mg/dL) 188 H 186 H (75-99) mg/dL Microbiology - Last 24 Hours (Table) 08/25/18 15:55 Blood Culture - Preliminary Blood No Growth after 48 hours Assessment and Plan Assessment: Raul STEMI, status post cardiac cath and stent Acute COPD exacerbation History of coronary artery disease status post CABG Common called, rule out influenza Leg cramps, check Doppler ultrasound History of congestive heart failure History of diabetes mellitus Hyperlipidemia Essential hypertension History of CVA/TIA. Plan: This is a pleasant 53 years old male who presents with heart attack. Continue with heparin drip as per cardiology direction, continue with aspirin, statin and consult felled seam operator to evaluate patient. Has negative influenza and bilateral lower extremity Doppler: Negative DVT. Continue with steroids, antibiotics and a breathing treatment for his COPD exacerbation Labs and medication were reviewed.. Continue same treatment. Continue with symptomatic treatment. Resume home medication. Monitor lytes and vitals. DVT and GI prophylaxis. Further recommendations of the clinical course of the patient DVT prophylaxis: heparin GI Prophylaxis: Protonix Prognosis is guarded
--- NOTE | 2018-08-28 14:31 | P.PN ---
Subjective Progress Note Date: 08/28/18 This is a 53-year-old gentleman with known history of coronary artery disease and prior bypass surgery, chronic nicotine dependence, hyperlipidemia, COPD, diabetes, hypertension, who follows with Dr. Moser in the office. He presented to the hospital with a non-ST elevation myocardial infarction, underwent stent placement of the saphenous vein graft to the obtuse marginal. He was seen and examined this morning, has a productive cough of yellow sputum and feels as though his sinuses are congested but denies any chest discomfort, and breathing overall is stable. Blood pressure 128/60 with a heart rate in the 70s. Sodium 138, potassium 4.3, BUN 17 and creatinine 1.0. 08/28/2018 Patient was seen and examined this morning, still continues to be quite wheezy, he was initiated on steroids yesterday. Denies any chest discomfort. Chest x- ray did not reveal any active cardiopulmonary disease. Objective - Vital Signs Vital signs: Vital Signs Temp 97 F L 08/28/18 12:10 Pulse 61 08/28/18 12:10 Resp 18 08/28/18 12:10 BP 143/78 08/28/18 12:10 Pulse Ox 96 08/28/18 12:10 Intake & Output 08/27/18 08/28/18 08/28/18 18:59 06:59 18:59 Intake Total 960 420 Output Total 700 0 500 Balance 260 0 -80 Weight 82 kg 83.3 kg Intake: Oral 960 420 Output: Urine 700 0 500 Other: # Voids 1 - Exam PHYSICAL EXAMINATION: GENERAL: 53-year-old gentleman in no acute distress at the time of my examination HEENT: Head is atraumatic, normocephalic. Pupils equal, round. Sclera anicteric. Conjunctiva are clear. Mucous membranes of the mouth are moist. Neck is supple. There is no elevated jugular venous pressure. No carotid bruit is heard. HEART EXAMINATION: Heart S1, S2 normal. No murmur or gallop heard. CHEST EXAMINATION: Lungs reveal scattered coarse rhonchi and wheezing throughout ABDOMEN: Soft, nontender. Bowel sounds are heard. No organomegaly noted. EXTREMITIES: 2+ peripheral pulses with no evidence of peripheral edema and no calf tenderness noted. Right groin soft, no evidence of any hematoma NEUROLOGIC patient is awake, alert and oriented 3 . . - Labs CBC & Chem 7: 08/25/18 15:55 08/28/18 05:52 Labs: Abnormal Lab Results - Last 24 Hours (Table) 08/27/18 08/27/18 08/28/18 Range/Units 16:22 20:35 05:52 Sodium 135 L (137-145) mmol/L BUN 23 H (9-20) mg/dL Glucose 210 H (74-99) mg/dL POC Glucose (mg/dL) 207 H 255 H (75-99) mg/dL 08/28/18 08/28/18 Range/Units 06:03 11:13 Sodium (137-145) mmol/L BUN (9-20) mg/dL Glucose (74-99) mg/dL POC Glucose (mg/dL) 188 H 186 H (75-99) mg/dL Microbiology - Last 24 Hours (Table) 08/25/18 15:55 Blood Culture - Preliminary Blood No Growth after 48 hours Assessment and Plan Plan: Assessment and plan #1 non-STEMI status post angioplasty and stenting of the SVG to the OM #2 known history of coronary artery disease with prior bypass surgery #3 diabetes #4 hypertension #5 hyperlipidemia #6 nicotine dependence #7 COPD #8 possible tracheobronchitis Plan From cardiology's perspective, patient may be able to be discharged home once cleared by primary. He will have a follow-up appointment in the office with Dr. Love post discharge. Patient will be discharged home on aspirin 81 mg daily, Lipitor 80 mg daily, lisinopril 5 mg twice a day, metoprolol 50 mg daily , nicotine patch, Aldactone 25 mg daily, Effient 10 mg daily, and sublingual nitroglycerin as needed for chest pain. DNP note has been reviewed, I agree with a documented findings and plan of care. Patient was seen and examined.
[2018-08-28 16:24] LABS: Glucose,Whole Blood 278 mg/dL (75-99)
[2018-08-28 20:42] LABS: Glucose,Whole Blood 346 mg/dL (75-99)
[2018-08-28 21:13] LABS: Appearance,Urine Clear (Clear); Bilirubin,Urine Negative (Negative); Blood,Urine Negative (Negative); Color,Urine Yellow; Glucose,Urine (UA) 4+ (Negative); Ketones,Urine Trace (Negative); Leukocyte Esterase,Urine Negative (Negative); Nitrite,Urine Negative (Negative); Protein,Urine Negative (Negative); Specific Gravity,Urine 1.023 (1.001-1.035); Urobilinogen,Urine <2.0 mg/dL (<2.0)
[2018-08-28] MEDS: ATORVASTATIN 80 MG TAB PO SCH (22:13)
[2018-08-28] MEDS: MAGNESIUM OXIDE 400 MG TAB PO SCH (22:13)
[2018-08-28] MEDS: NICOTINE 14MG/24HR PATCH TRANSDERM SCH (22:14)
[2018-08-29] MEDS: methylPREDNISolone SOD SUCCI 125 MG/2 ML VIAL IV SCH (00:23)
[2018-08-29] MEDS: INSULIN ASPART (NovoLOG) 100 UNIT/ML VIAL SQ SCH ×5 (00:25→21:29)
[2018-08-29] MEDS ORDERED: INSULIN ASPART (NovoLOG) 100 UNIT/ML VIAL SQ ONE (01:00)
[2018-08-29 05:55] LABS: Glucose,Whole Blood 259 mg/dL (75-99)
[2018-08-29 06:44] LABS: Anion Gap 7 mmol/L; Blood Urea Nitrogen 28 mg/dL (9-20); Calcium 9.6 mg/dL (8.4-10.2); Carbon Dioxide 24 mmol/L (22-30); Chloride 105 mmol/L (98-107); Glucose 280 mg/dL (74-99); Potassium 5.3 mmol/L (3.5-5.1); Sodium 136 mmol/L (137-145)
[2018-08-29] MEDS: PANTOPRAZOLE 40 MG TABLET PO SCH (07:04)
[2018-08-29] MEDS: SYMBICORT 160-4.5 MCG INHALER INHALATION SCH ×3 (07:58→21:06)
[2018-08-29] MEDS: LISINOPRIL 5 MG TAB PO SCH ×2 (08:04→20:47)
[2018-08-29] MEDS: PRASUGREL 10 MG TAB PO SCH (08:04)
[2018-08-29] MEDS: ASPIRIN 81 MG PO SCH (08:04)
[2018-08-29] MEDS: METOPROLOL SUCCINATE (ER) 50 MG TAB.ER.24H PO SCH (08:04)
[2018-08-29] MEDS: CHOLECALCIFEROL 400 UNIT TAB PO SCH (08:04)
[2018-08-29] MEDS: DULoxetine HCL 30 MG CAPSULE.DR PO SCH ×2 (08:04→20:47)
[2018-08-29] MEDS: ASCORBIC ACID 500 MG TAB PO SCH (08:04)
[2018-08-29] MEDS: predniSONE 20 MG TAB PO SCH (08:05)
[2018-08-29] MEDS: DOXYCYCLINE 100 MG in SODIUM CHLORIDE 0.9% 100 ML IVPB SCH (08:08)
[2018-08-29 11:38] LABS: Glucose,Whole Blood 289 mg/dL (75-99)
--- NOTE | 2018-08-29 14:38 | P.PN ---
Subjective Progress Note Date: 08/29/18 This is a 53-year-old gentleman with known history of coronary artery disease and prior bypass surgery, chronic nicotine dependence, hyperlipidemia, COPD, diabetes, hypertension, who follows with Dr. Moser in the office. He presented to the hospital with a non-ST elevation myocardial infarction, underwent stent placement of the saphenous vein graft to the obtuse marginal. He was seen and examined this morning, has a productive cough of yellow sputum and feels as though his sinuses are congested but denies any chest discomfort, and breathing overall is stable. Blood pressure 128/60 with a heart rate in the 70s. Sodium 138, potassium 4.3, BUN 17 and creatinine 1.0. 08/28/2018 Patient was seen and examined this morning, still continues to be quite wheezy, he was initiated on steroids yesterday. Denies any chest discomfort. Chest x- ray did not reveal any active cardiopulmonary disease. 08/29/2018 Patient seen and examined this morning, hemodynamically stable. Anticipating discharge home today. Patient has requested to follow-up in the office with Dr. Lala post discharge. Objective - Vital Signs Vital signs: Vital Signs Temp 98.0 F 08/29/18 12:00 Pulse 58 L 08/29/18 12:00 Resp 20 08/29/18 12:00 BP 138/49 08/29/18 12:00 Pulse Ox 95 08/29/18 12:00 Intake & Output 08/28/18 08/29/18 08/29/18 18:59 06:59 18:59 Intake Total 642 360 360 Output Total 500 200 Balance 142 160 360 Intake: Oral 642 360 360 Output: Urine 500 200 Other: # Voids 3 - Exam PHYSICAL EXAMINATION: GENERAL: 53-year-old gentleman in no acute distress at the time of my examination HEENT: Head is atraumatic, normocephalic. Pupils equal, round. Sclera anicteric. Conjunctiva are clear. Mucous membranes of the mouth are moist. Neck is supple. There is no elevated jugular venous pressure. No carotid bruit is heard. HEART EXAMINATION: Heart S1, S2 normal. No murmur or gallop heard. CHEST EXAMINATION: Lungs reveal scattered coarse rhonchi and wheezing throughout ABDOMEN: Soft, nontender. Bowel sounds are heard. No organomegaly noted. EXTREMITIES: 2+ peripheral pulses with no evidence of peripheral edema and no calf tenderness noted. Right groin soft, no evidence of any hematoma NEUROLOGIC patient is awake, alert and oriented 3 . . - Labs CBC & Chem 7: 08/25/18 15:55 08/29/18 06:05 Labs: Abnormal Lab Results - Last 24 Hours (Table) 08/28/18 08/28/18 08/28/18 Range/Units 16:15 19:12 20:34 Sodium (137-145) mmol/L Potassium (3.5-5.1) mmol/L BUN (9-20) mg/dL Glucose (74-99) mg/dL POC Glucose (mg/dL) 278 H 346 H (75-99) mg/dL Urine Glucose (UA) 4+ H (Negative) Urine Ketones Trace H (Negative) 08/29/18 08/29/18 08/29/18 Range/Units 05:31 06:05 11:16 Sodium 136 L (137-145) mmol/L Potassium 5.3 H (3.5-5.1) mmol/L BUN 28 H (9-20) mg/dL Glucose 280 H (74-99) mg/dL POC Glucose (mg/dL) 259 H 289 H (75-99) mg/dL Urine Glucose (UA) (Negative) Urine Ketones (Negative) Microbiology - Last 24 Hours (Table) 08/25/18 15:55 Blood Culture - Preliminary Blood No Growth after 72 hours Assessment and Plan Plan: Assessment and plan #1 non-STEMI status post angioplasty and stenting of the SVG to the OM #2 known history of coronary artery disease with prior bypass surgery #3 diabetes #4 hypertension #5 hyperlipidemia #6 nicotine dependence #7 COPD #8 possible tracheobronchitis Plan From cardiology's perspective, patient may be able to be discharged home once cleared by primary. He will have a follow-up appointment in the office with post discharge. Patient will be discharged home on aspirin 81 mg daily, Lipitor 80 mg daily, lisinopril 5 mg twice a day, metoprolol 50 mg daily , nicotine patch, Aldactone 25 mg daily,Plavix 75mg daily, and sublingual nitroglycerin as needed for chest pain. DNP note has been reviewed, I agree with a documented findings and plan of care. Patient was seen and examined.
[2018-08-29] MEDS: CLOPIDOGREL 75 MG TAB PO SCH (15:36)
[2018-08-29] MEDS: ACETAMINOPHEN TAB 325 MG TAB PO PRN (15:40)
[2018-08-29 17:31] LABS: Glucose,Whole Blood 298 mg/dL (75-99)
[2018-08-29] MEDS ORDERED: SODIUM POLYSTYRENE SULFONATE 15 GM/60 ML BOTTLE PO STA (17:44)
[2018-08-29] MEDS: ATORVASTATIN 80 MG TAB PO SCH (20:47)
[2018-08-29] MEDS: MAGNESIUM OXIDE 400 MG TAB PO SCH (20:48)
[2018-08-29 21:25] LABS: Glucose,Whole Blood 292 mg/dL (75-99)
[2018-08-30 06:14] LABS: Glucose,Whole Blood 166 mg/dL (75-99)
[2018-08-30] MEDS: PANTOPRAZOLE 40 MG TABLET PO SCH (06:14)
[2018-08-30 06:21] LABS: Anion Gap 6 mmol/L; Blood Urea Nitrogen 28 mg/dL (9-20); Carbon Dioxide 27 mmol/L (22-30); Chloride 105 mmol/L (98-107); Glucose 186 mg/dL (74-99); Potassium 4.5 mmol/L (3.5-5.1); Sodium 138 mmol/L (137-145)
[2018-08-30] MEDS: INSULIN ASPART (NovoLOG) 100 UNIT/ML VIAL SQ SCH (07:25)
[2018-08-30] MEDS: SYMBICORT 160-4.5 MCG INHALER INHALATION SCH (07:45)
[2018-08-30] MEDS: CHOLECALCIFEROL 400 UNIT TAB PO SCH (07:54)
[2018-08-30] MEDS: CLOPIDOGREL 75 MG TAB PO SCH (07:54)
[2018-08-30] MEDS: predniSONE 20 MG TAB PO SCH (07:54)
[2018-08-30] MEDS: ASCORBIC ACID 500 MG TAB PO SCH (07:54)
[2018-08-30] MEDS: LISINOPRIL 5 MG TAB PO SCH (07:54)
[2018-08-30] MEDS: METOPROLOL SUCCINATE (ER) 50 MG TAB.ER.24H PO SCH (07:54)
[2018-08-30] MEDS: DULoxetine HCL 30 MG CAPSULE.DR PO SCH (07:54)
[2018-08-30] MEDS: ASPIRIN 81 MG PO SCH (07:54)
[2018-08-30 07:57] VITALS: PULSE 73; TEMP 98.3
[2018-08-30 08:17] VITALS: BP 130/67; RESP 20
== END 2018-08-30 08:26 | disposition home or self-care (01) | DRG 247 ==
LOC: EC 13:47 → 3SCARD 18:50 → OBSVTOIN 08-26 13:34 → 3SCARD 08-30 08:26
PROVIDERS: ADMIT Internal Medicine; ATTEND Internal Medicine
PROC: B2111ZZ Fluoroscopy of Multiple Coronary Arteries using Low Osmolar Contrast (ICD-10-PCS; principal; 2018-08-26 14:10)
PROC: B2131ZZ Fluoroscopy of Multiple Coronary Artery Bypass Grafts using Low Osmolar Contrast (ICD-10-PCS; principal; 2018-08-26 14:10)
PROC: 4A023N6 Measurement of Cardiac Sampling and Pressure, Right Heart, Percutaneous Approach (ICD-10-PCS; principal; 2018-08-26 14:10)
PROC: B2151ZZ Fluoroscopy of Left Heart using Low Osmolar Contrast (ICD-10-PCS; principal; 2018-08-26 14:10)
PROC: 027034Z Dilation of Coronary Artery, One Artery with Drug-eluting Intraluminal Device, Percutaneous Approach (ICD-10-PCS; principal; 2018-08-26 14:10)
DX: I21.3 ST elevation (STEMI) myocardial infarction of unspecified site (principal); I50.22 Chronic systolic (congestive) heart failure; J44.1 Chronic obstructive pulmonary disease with (acute) exacerbation; J44.0 Chronic obstructive pulmonary disease with (acute) lower respiratory infection; E11.9 Type 2 diabetes mellitus without complications; I25.710 Atherosclerosis of autologous vein coronary artery bypass graft(s) with unstable angina pectoris; E78.00 Pure hypercholesterolemia, unspecified; E78.5 Hyperlipidemia, unspecified; F17.200 Nicotine dependence, unspecified, uncomplicated; F31.9 Bipolar disorder, unspecified; F41.9 Anxiety disorder, unspecified; I11.0 Hypertensive heart disease with heart failure; I25.110 Atherosclerotic heart disease of native coronary artery with unstable angina pectoris; I25.2 Old myocardial infarction; I25.5 Ischemic cardiomyopathy; R09.02 Hypoxemia; Z79.51 Long term (current) use of inhaled steroids; Z79.82 Long term (current) use of aspirin; Z79.84 Long term (current) use of oral hypoglycemic drugs; Z79.899 Other long term (current) drug therapy; Z86.73 Personal history of transient ischemic attack (TIA), and cerebral infarction without residual deficits; Z88.5 Allergy status to narcotic agent; Z88.0 Allergy status to penicillin; Z88.2 Allergy status to sulfonamides; Z88.8 Allergy status to other drugs, medicaments and biological substances; Z95.1 Presence of aortocoronary bypass graft; Z91.19 Patient's noncompliance with other medical treatment and regimen; J20.9 Acute bronchitis, unspecified
CPT/HCPCS: 36415; 71045; 71046; 80048; 80053; 80061; 81003; 82550; 82553; 83036; 84132; 84484; 85025; 85610; 85730; 87040; 87502; 93005; 93306; 93459; 93970; 94640; 94760; 96365; 96366; 96376; 99291; C1874

== ENCOUNTER 2018-09-05 16:32 | Inpatient (IN) | payer OTHER ==
[2018-09-05] MEDS ORDERED: SODIUM CHLORIDE 0.9% 1,000 ML IV STA (17:25)
[2018-09-05] MEDS ORDERED: LEVOFLOXACIN 500MG-D5W PMX 500 MG in DEXTROSE/WATER 1 100ML.BAG IVPB STA (17:41)
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
[2018-09-05 17:46] LABS: Basophils % (A) 0 %; Eosinophils # (A) 0.2 k/uL (0-0.7); Eosinophils % (A) 2 %; HCT 46.5 % (39.0-53.0); Lymphocytes # (A) 0.6 k/uL (1.0-4.8); Lymphocytes % (A) 6 %; MCH 30.7 pg (25.0-35.0); MCHC 34.4 g/dL (31.0-37.0); MCV 89.1 fL (80.0-100.0); Mean Platelet Volume 8.2; Monocytes # (A) 0.7 k/uL (0-1.0); Monocytes % (A) 6 %; Neutrophils # (A) 9.4 k/uL (1.3-7.7); Neutrophils % (A) 86 %; Platelet Count 241 k/uL (150-450); RBC 5.22 m/uL (4.30-5.90); RDW 13.1 % (11.5-15.5); WBC 10.9 k/uL (3.8-10.6)
--- NOTE | 2018-09-05 18:05 | XR ---
EXAMINATION TYPE: XR chest 2V DATE OF EXAM: 09/05/2018 COMPARISON: 08/27/2018 HISTORY: Short of breath TECHNIQUE: Frontal and lateral views of the chest are obtained. FINDINGS: There is no heart failure nor confluent pneumonic infiltrate. There is coarsening of inter stitial markings. There are sternal wires. Bony thorax is intact. There is no pleural effusion. IMPRESSION: Mild pulmonary fibrosis. No change compared to old exam. No heart failure.
[2018-09-05 18:18] LABS: Creatine Kinase MB 3.3 ng/mL (0.0-2.4)
[2018-09-05 18:38] LABS: ALT 52 U/L (21-72); AST 38 U/L (17-59); Alkaline Phosphatase 128 U/L (38-126); Anion Gap 10 mmol/L; Blood Urea Nitrogen 9 mg/dL (9-20); Calcium 9.3 mg/dL (8.4-10.2); Carbon Dioxide 26 mmol/L (22-30); Chloride 99 mmol/L (98-107); Creatine Kinase 716 U/L (55-170); Glucose 258 mg/dL (74-99); Potassium 4.4 mmol/L (3.5-5.1); Sodium 135 mmol/L (137-145)
[2018-09-05 18:39] LABS: Troponin I 0.052 ng/mL (0.000-0.034)
[2018-09-05] MEDS ORDERED: OSELTAMIVIR 75 MG CAP PO STA (18:57)
[2018-09-05 19:03] LABS: INR 0.9 (<1.2); Partial Thromboplastin Time 25.9 sec (22.0-30.0); Prothrombin Time 10.1 sec (9.0-12.0)
[2018-09-05 19:07] LABS: D-Dimer 0.79 mg/L FEU (<0.60)
[2018-09-05 19:11] LABS: Appearance,Urine Clear (Clear); Bilirubin,Urine Negative (Negative); Blood,Urine Trace (Negative); Color,Urine Light Yellow; Glucose,Urine (UA) 4+ (Negative); Ketones,Urine Negative (Negative); Leukocyte Esterase,Urine Negative (Negative); Mucus,Urine Rare /hpf; Nitrite,Urine Negative (Negative); Protein,Urine 1+ (Negative); Specific Gravity,Urine 1.011 (1.001-1.035); Squamous Epithelial Cell,Urine <1 /hpf (0-4); Urobilinogen,Urine <2.0 mg/dL (<2.0); WBC,Urine <1 /hpf (0-5)
[2018-09-05] MEDS ORDERED: HEPARIN SODIUM,PORCINE 5,000 UNIT/ML 1 ML VIAL IV PRN (19:37)
[2018-09-05] MEDS ORDERED: HEPARIN SODIUM,PORCINE 5,000 UNIT/ML 1 ML VIAL IV ONE (19:37)
[2018-09-05] MEDS ORDERED: NALOXONE 0.4 MG/ML 1 ML VIAL IV PRN (19:39)
[2018-09-05] MEDS ORDERED: HEPARIN SOD,PORK IN 0.45% NACL 25,000 UNIT in 0.45% NACL 1 250ML.BAG IV SCH (19:45)
[2018-09-05] MEDS ORDERED: FLUTICASONE 50MCG/SPRAY NASAL 16GM EA NOSTRIL PRN (19:49)
[2018-09-05] MEDS: SYMBICORT 160-4.5 MCG INHALER INHALATION SCH (21:22)
[2018-09-05 22:02] VITALS: BMI 28.0
[2018-09-05 22:32] LABS: Glucose,Whole Blood 149 mg/dL (75-99)
[2018-09-05] MEDS: SODIUM CHLORIDE 0.9% 1,000 ML IV SCH (22:33)
[2018-09-05] MEDS: DULoxetine HCL 30 MG CAPSULE.DR PO SCH (22:34)
[2018-09-05] MEDS: ACETAMINOPHEN TAB 325 MG TAB PO PRN (22:34)
[2018-09-05] MEDS: ATORVASTATIN 80 MG TAB PO SCH (22:34)
[2018-09-05] MEDS: AZTREONAM 2 GM in SODIUM CHLORIDE 0.9% 100 ML IVPB SCH (22:34)
[2018-09-05] MEDS: LISINOPRIL 5 MG TAB PO SCH (22:34)
[2018-09-05] MEDS: MAGNESIUM OXIDE 400 MG TAB PO SCH (22:34)
[2018-09-06] MEDS: INSULIN ASPART (NovoLOG) 100 UNIT/ML VIAL SQ SCH ×5 (00:06→21:20)
[2018-09-06 00:18] LABS: Creatine Kinase MB 1.8 ng/mL (0.0-2.4)
[2018-09-06 00:33] LABS: Troponin I 0.069 ng/mL (0.000-0.034)
[2018-09-06] MEDS: AZTREONAM 2 GM in SODIUM CHLORIDE 0.9% 100 ML IVPB SCH (06:12)
[2018-09-06 06:29] LABS: Basophils # (A) 0.1 k/uL (0-0.2); Basophils % (A) 1 %; Eosinophils # (A) 0.1 k/uL (0-0.7); Eosinophils % (A) 1 %; HCT 45.1 % (39.0-53.0); HGB 14.7 gm/dL (13.0-17.5); Lymphocytes # (A) 0.8 k/uL (1.0-4.8); Lymphocytes % (A) 10 %; MCH 29.6 pg (25.0-35.0); MCHC 32.7 g/dL (31.0-37.0); MCV 90.6 fL (80.0-100.0); Mean Platelet Volume 6.4; Monocytes # (A) 0.6 k/uL (0-1.0); Monocytes % (A) 9 %; Neutrophils # (A) 5.6 k/uL (1.3-7.7); Neutrophils % (A) 77 %; Platelet Count 249 k/uL (150-450); RBC 4.98 m/uL (4.30-5.90); RDW 12.6 % (11.5-15.5); WBC 7.2 k/uL (3.8-10.6)
[2018-09-06 06:34] LABS: Glucose,Whole Blood 182 mg/dL (75-99)
[2018-09-06] MEDS: PANTOPRAZOLE 40 MG TABLET PO SCH (06:54)
[2018-09-06 07:37] LABS: Creatine Kinase MB 1.7 ng/mL (0.0-2.4)
[2018-09-06 07:40] LABS: Troponin I 0.063 ng/mL (0.000-0.034)
[2018-09-06] MEDS: ALBUTEROL NEBULIZED 2.5 MG/3 ML INHALATION PRN ×2 (08:36→13:39)
[2018-09-06] MEDS: SYMBICORT 160-4.5 MCG INHALER INHALATION SCH ×2 (08:36→20:08)
[2018-09-06] MEDS: SODIUM CHLORIDE 0.9% 1,000 ML IV SCH (08:58)
[2018-09-06] MEDS: OSELTAMIVIR 75 MG CAP PO SCH ×2 (09:01→21:20)
[2018-09-06] MEDS: NICOTINE 14MG/24HR PATCH TRANSDERM SCH (09:01)
[2018-09-06] MEDS: METOPROLOL SUCCINATE (ER) 50 MG TAB.ER.24H PO SCH (09:01)
[2018-09-06] MEDS: LISINOPRIL 5 MG TAB PO SCH ×2 (09:01→21:20)
[2018-09-06] MEDS: ASPIRIN 81 MG PO SCH (09:01)
[2018-09-06] MEDS: DULoxetine HCL 30 MG CAPSULE.DR PO SCH ×2 (09:02→21:20)
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
[2018-09-06] MEDS ORDERED: FUROSEMIDE 10 MG/ML 4 ML VIAL IV STA (09:53)
[2018-09-06] MEDS ORDERED: VANCOMYCIN IV PER PHARMACY 1 EACH MISC MISCELLANE PRN (11:38)
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
[2018-09-06 11:52] LABS: Glucose,Whole Blood 199 mg/dL (75-99)
[2018-09-06] MEDS ORDERED: VANCOMYCIN 1,500 MG in SODIUM CHLORIDE 0.9% 250 ML IVPB SCH (12:00)
[2018-09-06] MEDS: CLOPIDOGREL 75 MG TAB PO SCH (12:04)
[2018-09-06] MEDS: CHOLECALCIFEROL 400 UNIT TAB PO SCH (12:04)
[2018-09-06] MEDS: ACETAMINOPHEN TAB 325 MG TAB PO PRN ×2 (12:41→19:56)
[2018-09-06 16:04] LABS: Glucose,Whole Blood 224 mg/dL (75-99)
[2018-09-06 20:47] LABS: Glucose,Whole Blood 244 mg/dL (75-99)
[2018-09-06] MEDS ORDERED: DOXYCYCLINE 100 MG CAP PO SCH (21:00)
[2018-09-06] MEDS: MAGNESIUM OXIDE 400 MG TAB PO SCH (21:20)
[2018-09-06] MEDS: DOXYCYCLINE 100 MG CAP PO SCH (21:20)
[2018-09-06] MEDS: ATORVASTATIN 80 MG TAB PO SCH (21:20)
[2018-09-07 07:31] LABS: Glucose,Whole Blood 159 mg/dL (75-99)
[2018-09-07] MEDS: PANTOPRAZOLE 40 MG TABLET PO SCH (08:33)
[2018-09-07] MEDS: METOPROLOL SUCCINATE (ER) 50 MG TAB.ER.24H PO SCH (08:34)
[2018-09-07] MEDS: CLOPIDOGREL 75 MG TAB PO SCH (08:34)
[2018-09-07] MEDS: DOXYCYCLINE 100 MG CAP PO SCH (08:34)
[2018-09-07] MEDS: NICOTINE 14MG/24HR PATCH TRANSDERM SCH (08:34)
[2018-09-07] MEDS: CHOLECALCIFEROL 400 UNIT TAB PO SCH (08:34)
[2018-09-07] MEDS: LISINOPRIL 5 MG TAB PO SCH (08:34)
[2018-09-07] MEDS: ASPIRIN 81 MG PO SCH (08:34)
[2018-09-07] MEDS: INSULIN ASPART (NovoLOG) 100 UNIT/ML VIAL SQ SCH ×2 (08:35→12:28)
[2018-09-07 08:49] VITALS: BP 131/73; RESP 18; TEMP 98
[2018-09-07] MEDS: SYMBICORT 160-4.5 MCG INHALER INHALATION SCH (09:14)
[2018-09-07] MEDS: ALBUTEROL NEBULIZED 2.5 MG/3 ML INHALATION PRN (09:14)
--- NOTE | 2018-09-07 09:16 | XR ---
EXAMINATION TYPE: XR chest 1V DATE OF EXAM: 09/07/2018 COMPARISON: Prior chest x-ray 09/05/2018 HISTORY: Congestive heart failure TECHNIQUE: Single frontal view of the chest is obtained. FINDINGS: Patient is post median sternotomy. Heart remains enlarged. No evident airspace disease, pn eumothorax, or pleural effusion. Pulmonary vascularity and janett are stable. IMPRESSION: Stable cardiomegaly.
[2018-09-07 09:25] VITALS: PULSE 76
[2018-09-07] MEDS: DULoxetine HCL 30 MG CAPSULE.DR PO SCH (09:29)
[2018-09-07] MEDS: OSELTAMIVIR 75 MG CAP PO SCH (09:29)
[2018-09-07 09:31] LABS: Basophils # (A) 0.1 k/uL (0-0.2); Basophils % (A) 1 %; Eosinophils # (A) 0.2 k/uL (0-0.7); Eosinophils % (A) 3 %; HCT 43.5 % (39.0-53.0); HGB 14.6 gm/dL (13.0-17.5); Lymphocytes # (A) 1.3 k/uL (1.0-4.8); Lymphocytes % (A) 20 %; MCH 29.6 pg (25.0-35.0); MCHC 33.6 g/dL (31.0-37.0); MCV 88.3 fL (80.0-100.0); Mean Platelet Volume 6.8; Monocytes # (A) 0.5 k/uL (0-1.0); Monocytes % (A) 8 %; Neutrophils # (A) 4.1 k/uL (1.3-7.7); Neutrophils % (A) 66 %; Platelet Count 224 k/uL (150-450); RBC 4.93 m/uL (4.30-5.90); RDW 12.8 % (11.5-15.5); WBC 6.3 k/uL (3.8-10.6)
[2018-09-07 09:54] LABS: Anion Gap 9 mmol/L; Blood Urea Nitrogen 14 mg/dL (9-20); Carbon Dioxide 25 mmol/L (22-30); Chloride 103 mmol/L (98-107); Glucose 183 mg/dL (74-99); Potassium 4.5 mmol/L (3.5-5.1); Sodium 137 mmol/L (137-145)
[2018-09-07 12:03] LABS: Glucose,Whole Blood 167 mg/dL (75-99)
--- NOTE | 2018-09-07 14:17 | P.PN ---
Subjective This is a pleasant 53-year-old male past medical history significant for coronary artery disease status post bypass grafting, diabetes mellitus, hypertension, dyslipidemia, chronic nicotine dependence distress currently admitted to the hospital with influenza A. He follows in the office with Dr. Arroyo. He is seen and examined sitting up in bed in no acute distress. He denies symptoms of chest pain, shortness of breath, dizziness or palpitations. He continues to complain of cough and congestion. Laboratory data reviewed, WBC 6.3, hemoglobin 14.6, platelets 224, sodium 137, potassium 4.5, creatinine 0.98. Blood pressure 131/73 heart rate 76 afebrile maintaining oxygen saturation on room air. Repeat chest x-ray this morning reveals no evidence of acute heart failure or cardiopulmonary process with stable cardiomegaly. Currently maintained on aspirin 81 mg daily, atorvastatin 80 mg daily, Plavix 75 mg daily, lisinopril 5 mg twice a day and Toprol 50 mg daily. ASSESSMENT Influenza A Abnormal troponins with no significant rise and fall pattern. Most likely secondary to influenza. History of coronary artery disease status post bypass grafting and recent non-Q- wave myocardial infarction status post angioplasty and stenting of the OM2 Hypertension Dyslipidemia History of ischemic cardiomyopathy, ejection fraction 25-30% Chronic nicotine dependence PLAN Stable from a cardiac perspective. Follow-up with Dr. Arroyo upon discharge. Nurse Practitioner note has been reviewed, I agree with a documented findings and plan of care. Patient was seen and examined. Objective - Vital Signs Vital signs: Vital Signs Temp 98.0 F 09/07/18 08:45 Pulse 76 09/07/18 09:24 Resp 18 09/07/18 08:45 BP 131/73 09/07/18 08:45 Pulse Ox 96 09/07/18 08:45 Intake & Output 09/06/18 09/07/18 09/07/18 18:59 06:59 18:59 Intake Total 1220 Output Total 1400 Balance -180 Intake: Oral 1220 Output: Urine 1400 Other: Voiding Method Toilet # Voids 300 2 - Labs CBC & Chem 7: 09/07/18 08:47 09/07/18 08:47 Labs: Abnormal Lab Results - Last 24 Hours (Table) 09/06/18 09/06/18 09/07/18 Range/Units 16:01 20:45 07:18 Glucose (74-99) mg/dL POC Glucose (mg/dL) 224 H 244 H 159 H (75-99) mg/dL 09/07/18 09/07/18 Range/Units 08:47 11:50 Glucose 183 H (74-99) mg/dL POC Glucose (mg/dL) 167 H (75-99) mg/dL Microbiology - Last 24 Hours (Table) 09/05/18 17:00 Blood Culture Gram Stain - Preliminary Blood Blood Culture - Preliminary Coagulase Negative Staph 09/05/18 17:00 Blood Culture - Final Blood
--- NOTE | 2018-09-07 15:23 | P.DS ---
Providers Date of admission: 09/06/18 15:08 Attending physician: Shahnaz Guerra Consults: 09/05/18 19:39 Consult Physician Stat Consulting Provider: Fabiano Arroyo Consult Reason/Comments: Elevated troponin Do you want consulting provider notified?: Already Contacted Primary care physician: [facility] Course: 53-year-old pleasant gentleman came to the hospital with cough congestion generalized body aches found to have influenza. He was started on Tamiflu and visit here and azetreonam, which is being discontinued at this time Tamiflu will be continued. Patient also has minimally elevated troponins which is stable patient has recent microinfarction hadstenting recently. Patient had ejection fraction of 25-30% because of which I'm discontinuing IV fluids.patient will be given a dose of Lasix because of suspicion of pulmonary edema on the chest x-ray which can be pulmonary fibrosis as well. Cardiology valid the patient and no further intervention cardiac perspective. BNP is around 1200 the recommended dose of IV Lasix which will be given to the patient. Later in the day patient is found to have blood cultures that are positive for gram-positive cocci in clusters patient will be started on vancomycin IV repeat blood cultures will be obtained today and tomorrow although that his no evidence of pneumonia at this time. 09/07/2018 Patient blood cultures are showing coagulase-negative staph which is a contamination vancomycin was discontinued. Patient is clinically doing well euvolemic is being discharged home today PHYSICAL EXAMINATION: GENERAL: The patient is alert and oriented x3, not in any acute distress. Well developed, well nourished. HEENT: Pupils are round and equally reacting to light. EOMI. No scleral icterus. No conjunctival pallor. Normocephalic, atraumatic. No pharyngeal erythema. No thyromegaly. CARDIOVASCULAR: S1 and S2 present. No murmurs, rubs, or gallops. PULMONARY: Chest is clear to auscultation, no wheezing or crackles. ABDOMEN: Soft, nontender, nondistended, normoactive bowel sounds. No palpable organomegaly. MUSCULOSKELETAL: No joint swelling or deformity. EXTREMITIES: No cyanosis, clubbing, or pedal edema. NEUROLOGICAL: Gross neurological examination did not reveal any focal deficits. SKIN: No rashes. Assessment and Plan Plan: -sepsis: Probably secondary to severe influenza infection and secondary bacterial bronchitis -Congestive heart failure chronic systolic dysfunction with minimal exacerbation presently euvolemic will be discharged on 40 mg of Lasix -Mildly elevated troponins which she is chronic elevation from his previous myocardial infarction the there is no evidence of new [place] at this time -coronary artery disease next and-hyperlipidemia -Ischemic cardio myopathy -COPD without any significant exacerbation -Hypertension -Gastroesophageal reflux disease Patient Condition at Discharge: Serious Plan - Discharge Summary Discharge Rx Participant: Yes New Discharge Prescriptions: New Doxycycline [Vibramycin] 100 mg PO BID #7 cap Furosemide [Lasix] 40 mg PO DAILY #30 tablet Oseltamivir [Tamiflu] 75 mg PO BID #10 cap Continue Atorvastatin [Lipitor] 80 mg PO HS metFORMIN HCL 1,000 mg PO BID #60 tab Ascorbic Acid [Vitamin C] 500 mg PO DAILY Metoprolol Succinate [Toprol XL] 50 mg PO DAILY Magnesium Oxide [Mag-Oxide] 200 mg PO HS Cholecalciferol [Vitamin D3] 400 unit PO DAILY Budesonide-Formot 160-4.5 Mcg [Symbicort 160-4.5 Mcg Inhaler] 2 puff INHALATION RT-BID Acetaminophen [Tylenol] 325 mg PO Q4H PRN PRN Reason: Pain DULoxetine HCL [Cymbalta] 30 mg PO BID Albuterol Inhaler [Ventolin Hfa Inhaler] 1 - 2 puff INHALATION RT-Q6H PRN #1 inhaler PRN Reason: Shortness Of Breath Or Wheezing Aspirin 81 mg PO DAILY #30 chew Clopidogrel [Plavix] 75 mg PO DAILY #30 tab Fluticasone Nasal [place] [Flonase Nasal [place]] 2 spray EA NOSTRIL DAILY PRN # 1 spr PRN Reason: Allergy Symptoms guaiFENesin SYRUP 100MG/5ML [Robitussin] 200 mg PO Q6H PRN cup PRN Reason: Cough Lisinopril [Zestril] 5 mg PO BID #60 tab Nitroglycerin Sl Tabs [Nitrostat] 0.4 mg SUBLINGUAL Q5M PRN #20 tab PRN Reason: Chest Pain Pantoprazole [Protonix] 40 mg PO AC-BRKFST #30 tablet.dr Discharge Medication List Atorvastatin [Lipitor] 80 mg PO HS 11/25/16 [History] metFORMIN HCL 1,000 mg PO BID #60 tab 11/27/16 [Rx] Ascorbic Acid [Vitamin C] 500 mg PO DAILY 03/31/17 [History] Metoprolol Succinate [Toprol XL] 50 mg PO DAILY 03/31/17 [History] Budesonide-Formot 160-4.5 Mcg [Symbicort 160-4.5 Mcg Inhaler] 2 puff INHALATION RT-BID 05/19/17 [History] Cholecalciferol [Vitamin D3] 400 unit PO DAILY 05/19/17 [History] Magnesium Oxide [Mag-Oxide] 200 mg PO HS 05/19/17 [History] Acetaminophen [Tylenol] 325 mg PO Q4H PRN 03/08/18 [History] DULoxetine HCL [Cymbalta] 30 mg PO BID 08/25/18 [History] Albuterol Inhaler [Ventolin Hfa Inhaler] 1 - 2 puff INHALATION RT-Q6H PRN #1 inhaler 08/29/18 [Rx] Aspirin 81 mg PO DAILY #30 chew 08/29/18 [Rx] Clopidogrel [Plavix] 75 mg PO DAILY #30 tab 08/29/18 [Rx] Fluticasone Nasal [place] [Flonase Nasal [place]] 2 spray EA NOSTRIL DAILY PRN #1 spr 08/29/18 [Rx] Lisinopril [Zestril] 5 mg PO BID #60 tab 08/29/18 [Rx] Nitroglycerin Sl Tabs [Nitrostat] 0.4 mg SUBLINGUAL Q5M PRN #20 tab 08/29/18 [Rx ] Pantoprazole [Protonix] 40 mg PO AC-BRKFST #30 tablet. 08/29/18 [Rx] guaiFENesin SYRUP 100MG/5ML [Robitussin] 200 mg PO Q6H PRN cup 08/29/18 [Rx] Doxycycline [Vibramycin] 100 mg PO BID #7 cap 09/07/18 [Rx] Furosemide [Lasix] 40 mg PO DAILY #30 tablet 09/07/18 [Rx] Oseltamivir [Tamiflu] 75 mg PO BID #10 cap 09/07/18 [Rx] Follow up Appointment(s)/Referral(s): May Marquez MD [Primary Care Provider] - 3 Days Fabiano Arroyo MD [STAFF PHYSICIAN] - 2 Weeks Discharge Disposition: HOME SELF-CARE
== END 2018-09-07 16:40 | disposition home or self-care (01) | DRG 871 ==
LOC: EC 16:32 → 3SCARD 19:39 → OBSVTOIN 09-06 15:08 → 4SSUR 09-06 21:54
PROVIDERS: ADMIT Hospitalist; ATTEND Hospitalist
DX: A41.1 Sepsis due to other specified staphylococcus (principal); I21.4 Non-ST elevation (NSTEMI) myocardial infarction; I50.22 Chronic systolic (congestive) heart failure; I11.0 Hypertensive heart disease with heart failure; J84.10 Pulmonary fibrosis, unspecified; I25.10 Atherosclerotic heart disease of native coronary artery without angina pectoris; E11.9 Type 2 diabetes mellitus without complications; E78.5 Hyperlipidemia, unspecified; F41.9 Anxiety disorder, unspecified; F31.9 Bipolar disorder, unspecified; J10.1 Influenza due to other identified influenza virus with other respiratory manifestations; I25.5 Ischemic cardiomyopathy; R00.0 Tachycardia, unspecified; I49.3 Ventricular premature depolarization; F17.210 Nicotine dependence, cigarettes, uncomplicated; J44.9 Chronic obstructive pulmonary disease, unspecified; K21.9 Gastro-esophageal reflux disease without esophagitis; R74.8 Abnormal levels of other serum enzymes; Z59.0 Homelessness; Z79.899 Other long term (current) drug therapy; Z79.51 Long term (current) use of inhaled steroids; Z79.84 Long term (current) use of oral hypoglycemic drugs; Z79.82 Long term (current) use of aspirin; Z79.02 Long term (current) use of antithrombotics/antiplatelets; Z95.1 Presence of aortocoronary bypass graft; Z95.5 Presence of coronary angioplasty implant and graft; Z86.73 Personal history of transient ischemic attack (TIA), and cerebral infarction without residual deficits; Z87.81 Personal history of (healed) traumatic fracture; Z91.048 Other nonmedicinal substance allergy status; Z88.0 Allergy status to penicillin; Z88.2 Allergy status to sulfonamides
CPT/HCPCS: 36415; 71045; 71046; 80048; 80053; 81001; 82550; 82553; 83880; 84484; 85025; 85379; 85610; 85730; 87040; 87502; 93005; 94640; 96361; 96365; 96367; 96376; 99285

== ENCOUNTER 2018-10-11 10:29 | Emergency (ER) | payer OTHER ==
[2018-10-11 10:57] VITALS: RESP 18
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
--- NOTE | 2018-10-11 12:27 | XR ---
EXAMINATION TYPE: XR chest 2V DATE OF EXAM: 10/11/2018 COMPARISON: 09/07/2018 HISTORY: 53-year-old male difficulty breathing, shortness of breath TECHNIQUE: PA and lateral views FINDINGS: Heart mildly enlarged. Median sternotomy wires with postoperative clips in the mediastinum. Mild to m oderate bronchial wall thickening. Hyperinflation. Hazy lower lung densities likely related to overly ing soft tissue. No [place] consolidation or pleural effusion seen. IMPRESSION: Mild cardiomegaly and COPD. [id number] bronchial wall thickening could represent a prominent co mponent of chronic bronchitis or superimposed acute bronchitis.
[2018-10-11 12:38] LABS: ALT 44 U/L (21-72); AST 42 U/L (17-59); Albumin 4.2 g/dL (3.5-5.0); Alkaline Phosphatase 94 U/L (38-126); Anion Gap 11 mmol/L; Blood Urea Nitrogen 15 mg/dL (9-20); Carbon Dioxide 27 mmol/L (22-30); Chloride 102 mmol/L (98-107); Glucose 181 mg/dL (74-99); Potassium 4.2 mmol/L (3.5-5.1); Sodium 140 mmol/L (137-145); Total Bilirubin 1.1 mg/dL (0.2-1.3)
[2018-10-11 12:39] LABS: Basophils # (A) 0.1 k/uL (0-0.2); Basophils % (A) 1 %; Eosinophils # (A) 0.3 k/uL (0-0.7); Eosinophils % (A) 3 %; HCT 45.6 % (39.0-53.0); HGB 15.6 gm/dL (13.0-17.5); Lymphocytes # (A) 1.6 k/uL (1.0-4.8); Lymphocytes % (A) 18 %; MCH 29.2 pg (25.0-35.0); MCHC 34.3 g/dL (31.0-37.0); MCV 85.3 fL (80.0-100.0); Mean Platelet Volume 7.2; Monocytes # (A) 0.4 k/uL (0-1.0); Monocytes % (A) 5 %; Neutrophils # (A) 6.3 k/uL (1.3-7.7); Neutrophils % (A) 72 %; Platelet Count 254 k/uL (150-450); RBC 5.35 m/uL (4.30-5.90); RDW 13.7 % (11.5-15.5); WBC 8.8 k/uL (3.8-10.6)
[2018-10-11 14:17] VITALS: BP 144/88; PULSE 86; TEMP 97.7
== END 2018-10-11 14:17 | disposition home or self-care (01) ==
LOC: EC 10:29
DX: J32.9 Chronic sinusitis, unspecified (principal); I25.119 Atherosclerotic heart disease of native coronary artery with unspecified angina pectoris; I11.0 Hypertensive heart disease with heart failure; I50.9 Heart failure, unspecified; E11.9 Type 2 diabetes mellitus without complications; E78.5 Hyperlipidemia, unspecified; E78.00 Pure hypercholesterolemia, unspecified; I25.2 Old myocardial infarction; F41.9 Anxiety disorder, unspecified; F31.9 Bipolar disorder, unspecified; Z79.899 Other long term (current) drug therapy; Z79.51 Long term (current) use of inhaled steroids; Z88.0 Allergy status to penicillin; Z88.2 Allergy status to sulfonamides; Z88.5 Allergy status to narcotic agent; Z91.048 Other nonmedicinal substance allergy status; Z95.1 Presence of aortocoronary bypass graft; Z95.5 Presence of coronary angioplasty implant and graft
CPT/HCPCS: 36415; 71046; 80053; 83605; 85025; 93005; 99284

== ENCOUNTER 2018-10-11 17:35 | Emergency (ER) | payer OTHER ==
[2018-10-11 18:00] VITALS: RESP 18; TEMP 97.7
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
[2018-10-11 19:54] VITALS: BP 147/81; PULSE 93
== END 2018-10-11 20:39 | disposition home or self-care (01) ==
LOC: EC 17:35
DX: J32.9 Chronic sinusitis, unspecified (principal); R94.31 Abnormal electrocardiogram [ECG] [EKG]; I25.10 Atherosclerotic heart disease of native coronary artery without angina pectoris; I11.0 Hypertensive heart disease with heart failure; I50.9 Heart failure, unspecified; Z86.73 Personal history of transient ischemic attack (TIA), and cerebral infarction without residual deficits; E78.5 Hyperlipidemia, unspecified; I25.2 Old myocardial infarction; F41.9 Anxiety disorder, unspecified; F32.9 Major depressive disorder, single episode, unspecified; F17.200 Nicotine dependence, unspecified, uncomplicated; Z95.1 Presence of aortocoronary bypass graft; Z95.818 Presence of other cardiac implants and grafts; Z95.5 Presence of coronary angioplasty implant and graft; Z79.51 Long term (current) use of inhaled steroids; Z79.899 Other long term (current) drug therapy; Z88.5 Allergy status to narcotic agent; Z91.048 Other nonmedicinal substance allergy status; Z88.0 Allergy status to penicillin; Z88.2 Allergy status to sulfonamides; Z88.8 Allergy status to other drugs, medicaments and biological substances
CPT/HCPCS: 36415; 71046; 80053; 83605; 84484; 85025; 93005; 99284; 99285

== ENCOUNTER 2018-11-20 03:55 | Inpatient (IN) | payer OTHER ==
[2018-11-20] MEDS ORDERED: NITROGLYCERIN OINT 1 INCH/GM PACKET TOPICAL STA (04:01)
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
[2018-11-20] MEDS ORDERED: IPRATROPIUM-ALBUTEROL 3 ML NEB INHALATION STA (04:14)
[2018-11-20 04:15] LABS: Basophils # (A) 0.1 k/uL (0-0.2); Basophils % (A) 1 %; Eosinophils # (A) 0.5 k/uL (0-0.7); Eosinophils % (A) 5 %; HCT 46.7 % (39.0-53.0); HGB 15.3 gm/dL (13.0-17.5); Lymphocytes # (A) 2.9 k/uL (1.0-4.8); Lymphocytes % (A) 29 %; MCH 29.1 pg (25.0-35.0); MCHC 32.8 g/dL (31.0-37.0); MCV 88.6 fL (80.0-100.0); Mean Platelet Volume 6.6; Monocytes # (A) 0.5 k/uL (0-1.0); Monocytes % (A) 5 %; Neutrophils # (A) 5.8 k/uL (1.3-7.7); Neutrophils % (A) 58 %; Platelet Count 241 k/uL (150-450); RBC 5.27 m/uL (4.30-5.90)
[2018-11-20 04:24] LABS: INR 0.9 (<1.2); Partial Thromboplastin Time 23.8 sec (22.0-30.0); Prothrombin Time 9.7 sec (9.0-12.0)
[2018-11-20 04:25] LABS: ALT 43 U/L (21-72); AST 29 U/L (17-59); Albumin 4.4 g/dL (3.5-5.0); Alkaline Phosphatase 124 U/L (38-126); Anion Gap 10 mmol/L; Blood Urea Nitrogen 16 mg/dL (9-20); Calcium 9.2 mg/dL (8.4-10.2); Carbon Dioxide 24 mmol/L (22-30); Chloride 103 mmol/L (98-107); Glucose 268 mg/dL (74-99); Magnesium 1.8 mg/dL (1.6-2.3); Potassium 4.2 mmol/L (3.5-5.1); Sodium 137 mmol/L (137-145); Total Protein 7.2 g/dL (6.3-8.2)
--- NOTE | 2018-11-20 04:34 | XR ---
EXAM: XR Chest, 1 View CLINICAL HISTORY: ITS.REASON XR Reason: stemi TECHNIQUE: Frontal view of the chest. COMPARISON: 10/11/2018 FINDINGS: Lungs: No focal consolidation. No significant alteration from previous examination. Pleural space: No large pleural effusion. No pneumothorax. Heart: Stable cardiomegaly. Mediastinum: The trachea is midline. The mediastinal contours are similar without significant alteration. Bones/joints: Intact sternotomy wires with mediastinal clips noted, consistent with prior CABG. IMPRESSION: No acute cardiopulmonary process identified with findings consistent with prior CABG and stable cardiomegaly.
[2018-11-20] MEDS: NITROGLYCERIN OINT 1 INCH/GM PACKET TOPICAL SCH ×3 (06:28→17:12)
[2018-11-20] MEDS ORDERED: NICOTINE 21MG/24HR PATCH TRANSDERM STA (06:36)
[2018-11-20 07:10] VITALS: BMI 30.2
[2018-11-20] MEDS: INSULIN ASPART (NovoLOG) 100 UNIT/ML VIAL SQ SCH ×4 (07:58→21:29)
[2018-11-20] MEDS ORDERED: HEPARIN SODIUM,PORCINE 5,000 UNIT/ML 1 ML VIAL IV PRN (08:00)
[2018-11-20] MEDS ORDERED: HEPARIN SODIUM,PORCINE 5,000 UNIT/ML 1 ML VIAL IV ONE (08:00)
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
[2018-11-20] MEDS: LISINOPRIL 5 MG TAB PO SCH (08:22)
[2018-11-20] MEDS: METOPROLOL SUCCINATE (ER) 50 MG TAB.ER.24H PO SCH (08:22)
[2018-11-20] MEDS: CLOPIDOGREL 75 MG TAB PO SCH (08:22)
[2018-11-20] MEDS: FUROSEMIDE 10 MG/ML 4 ML VIAL IV SCH (08:23)
[2018-11-20] MEDS: HEPARIN SOD,PORK IN 0.45% NACL 25,000 UNIT in 0.45% NACL 1 250ML.BAG IV SCH (08:23)
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
[2018-11-20 12:13] LABS: Glucose,Whole Blood 201 mg/dL (75-99)
[2018-11-20 17:05] LABS: Glucose,Whole Blood 233 mg/dL (75-99)
[2018-11-20] MEDS: DULoxetine HCL 30 MG CAPSULE.DR PO SCH ×2 (17:12→21:28)
[2018-11-20] MEDS ORDERED: ATORVASTATIN 80 MG TAB PO SCH (21:00)
[2018-11-20 21:18] LABS: Glucose,Whole Blood 242 mg/dL (75-99)
[2018-11-21] MEDS: NITROGLYCERIN OINT 1 INCH/GM PACKET TOPICAL SCH ×2 (00:04→06:45)
[2018-11-21 06:10] LABS: Glucose,Whole Blood 223 mg/dL (75-99)
[2018-11-21 06:33] LABS: Basophils # (A) 0.1 k/uL (0-0.2); Basophils % (A) 1 %; Eosinophils # (A) 0.4 k/uL (0-0.7); Eosinophils % (A) 4 %; HGB 15.1 gm/dL (13.0-17.5); Lymphocytes # (A) 2.7 k/uL (1.0-4.8); Lymphocytes % (A) 27 %; MCH 29.5 pg (25.0-35.0); MCHC 33.6 g/dL (31.0-37.0); MCV 87.9 fL (80.0-100.0); Mean Platelet Volume 7.5; Monocytes # (A) 0.5 k/uL (0-1.0); Monocytes % (A) 5 %; Neutrophils # (A) 5.9 k/uL (1.3-7.7); Neutrophils % (A) 60 %; Platelet Count 222 k/uL (150-450); RBC 5.12 m/uL (4.30-5.90); RDW 14.8 % (11.5-15.5)
[2018-11-21 06:44] LABS: Anion Gap 8 mmol/L; Blood Urea Nitrogen 16 mg/dL (9-20); Calcium 9.4 mg/dL (8.4-10.2); Carbon Dioxide 23 mmol/L (22-30); Chloride 106 mmol/L (98-107); Cholesterol 179 mg/dL (<200); Glucose 225 mg/dL (74-99); HDL Cholesterol 39 mg/dL (40-60); LDL Cholesterol,Calculated 107 mg/dL (0-99); Magnesium 1.8 mg/dL (1.6-2.3); Potassium 4.5 mmol/L (3.5-5.1); Sodium 137 mmol/L (137-145); Triglycerides 164 mg/dL (<150)
[2018-11-21] MEDS: INSULIN ASPART (NovoLOG) 100 UNIT/ML VIAL SQ SCH ×4 (06:45→21:47)
[2018-11-21] MEDS: HEPARIN SOD,PORK IN 0.45% NACL 25,000 UNIT in 0.45% NACL 1 250ML.BAG IV SCH (06:54)
[2018-11-21] MEDS ORDERED: ASPIRIN 325 MG TAB PO STA (08:25)
[2018-11-21] MEDS ORDERED: NITROGLYCERIN SL TABS 0.4 MG TAB SUBLINGUAL PRN (08:25)
[2018-11-21] MEDS ORDERED: ALPRAZolam 0.25 MG TAB PO PRN (08:25)
[2018-11-21] MEDS ORDERED: SODIUM CHLORIDE 0.9% 1,000 ML in EMPTY BAG 1 BAG IV ONE (08:25)
[2018-11-21] MEDS ORDERED: ALPRAZolam 0.5 MG TAB PO PRN (08:25)
[2018-11-21] MEDS ORDERED: ATORVASTATIN 80 MG TAB PO STA (08:25)
[2018-11-21] MEDS: PANTOPRAZOLE 40 MG TABLET PO SCH (08:55)
[2018-11-21] MEDS: DULoxetine HCL 30 MG CAPSULE.DR PO SCH ×3 (08:56→20:37)
[2018-11-21] MEDS: CLOPIDOGREL 75 MG TAB PO SCH (08:56)
[2018-11-21] MEDS: METOPROLOL SUCCINATE (ER) 50 MG TAB.ER.24H PO SCH (08:57)
[2018-11-21] MEDS: LISINOPRIL 5 MG TAB PO SCH ×2 (08:57→20:37)
[2018-11-21] MEDS ORDERED: ASPIRIN 325 MG TAB PO SCH (09:00)
[2018-11-21] MEDS ORDERED: IV FLUID CONTINUATION 450 ML IV ONE (09:35)
[2018-11-21] MEDS ORDERED: fentaNYL (PF) 50 MCG/ML 2 ML AMP ONE (09:41)
[2018-11-21] MEDS ORDERED: fentaNYL (PF) 50 MCG/ML 2 ML AMP IV ONE (10:02)
[2018-11-21] MEDS ORDERED: LIDOCAINE 1% INJ 10MG/ML (20 ML MDV) SQ ONE (10:11)
[2018-11-21] MEDS ORDERED: IOPAMIDOL-370 125ML BTL INJ ONE (10:21)
[2018-11-21] MEDS ORDERED: RX INFO: IV CONTRAST WAS GIVEN 1 EACH MISC MISCELLANE PRN (10:43)
[2018-11-21] MEDS ORDERED: SODIUM CHLORIDE 0.9% 1,000 ML IV SCH (10:45)
--- NOTE | 2018-11-21 10:47 | P.PN ---
Subjective 53-year-old known history of coronary artery disease came in with shortness of breath patient is noncompliant with medications and continues to smoke patient was taken to record label intern because of shortness of breath, this was believed to be anginal equivalent patient did not have any significant atherosclerotic coronary occlusive disease that needed stenting. Patient will be discharged tomorrow. Patient doesn't have any short of breath now. Constitutional: Denied any fatigue denied any fever. Cardio vascular: denied any chest pain, palpitations Gastrointestinal denied any nausea vomiting Pulmonary: Denied any shortness of breath cough Neurologic denied any new focal deficits All inpatient medications were reviewed and appropriate changes in these medications as dictated in the interval history and assessment and plan. Objective - Vital Signs Vital signs: Vital Signs Temp 97.1 F L 11/21/18 05:37 Pulse 86 11/21/18 05:37 Resp 16 11/21/18 05:37 BP 129/82 11/21/18 05:37 Pulse Ox 94 L 11/21/18 05:37 Intake & Output 11/20/18 11/21/18 11/21/18 18:59 06:59 18:59 Intake Total 425.667 304.333 100 Balance 425.667 304.333 100 Weight 88.1 kg Intake: IV 100 Intake, IV Titration 65.667 184.333 Amount Heparin Sod,Pork in 0.45% 65.667 184.333 NaCl 25,000 unit In 0.45 % NaCl 1 250ml.bag @ 11. 023 UNITS/KG/HR 10 mls/hr IV .Q24H MARIELENA Rx#: [id number] Oral 360 120 Other: # Voids 3 1 - Exam PHYSICAL EXAMINATION: GENERAL: The patient is alert and oriented x3, not in any acute distress. Well developed, well nourished. HEENT: Pupils are round and equally reacting to light. EOMI. No scleral icterus. No conjunctival pallor. Normocephalic, atraumatic. No pharyngeal erythema. No thyromegaly. CARDIOVASCULAR: S1 and S2 present. No murmurs, rubs, or gallops. PULMONARY: Chest is clear to auscultation, no wheezing or crackles. ABDOMEN: Soft, nontender, nondistended, normoactive bowel sounds. No palpable organomegaly. MUSCULOSKELETAL: No joint swelling or deformity. EXTREMITIES: No cyanosis, clubbing, or pedal edema. NEUROLOGICAL: Gross neurological examination did not reveal any focal deficits. SKIN: No rashes. - Labs CBC & Chem 7: 11/21/18 05:41 11/21/18 05:41 Labs: Abnormal Lab Results - Last 24 Hours (Table) 11/20/18 11/20/18 11/20/18 Range/Units 10:38 11:57 14:14 APTT 31.3 H (22.0-30.0) sec Glucose (74-99) mg/dL POC Glucose (mg/dL) 201 H (75-99) mg/dL Troponin I 0.137 H* (0.000-0.034) ng/mL Triglycerides (<150) mg/dL LDL Cholesterol, Calc (0-99) mg/dL HDL Cholesterol (40-60) mg/dL 11/20/18 11/20/18 11/20/18 Range/Units 16:53 17:11 21:06 APTT (22.0-30.0) sec Glucose (74-99) mg/dL POC Glucose (mg/dL) 233 H 242 H (75-99) mg/dL Troponin I 0.262 H* (0.000-0.034) ng/mL Triglycerides (<150) mg/dL LDL Cholesterol, Calc (0-99) mg/dL HDL Cholesterol (40-60) mg/dL 11/20/18 11/21/18 11/21/18 Range/Units 21:28 05:41 05:41 APTT 40.4 H 39.8 H (22.0-30.0) sec Glucose 225 H (74-99) mg/dL POC Glucose (mg/dL) (75-99) mg/dL Troponin I (0.000-0.034) ng/mL Triglycerides 164 H (<150) mg/dL LDL Cholesterol, Calc 107 H (0-99) mg/dL HDL Cholesterol 39 L (40-60) mg/dL 11/21/18 Range/Units 05:59 APTT (22.0-30.0) sec Glucose (74-99) mg/dL POC Glucose (mg/dL) 223 H (75-99) mg/dL Troponin I (0.000-0.034) ng/mL Triglycerides (<150) mg/dL LDL Cholesterol, Calc (0-99) mg/dL HDL Cholesterol (40-60) mg/dL Assessment and Plan Plan: Shortness of breath : Patient was believed to have non-ST elevation myocardial infarction. but there is no significant atherosclerotic coronary occlusive disease that need stenting -Coronary artery disease with recent stents in the past -Ischemic cardio myopathy congestive heart failure chronic systolic dysfunction ejection fraction of 25% not in acute exacerbation at this time -Hypertension next and-type 2 diabetes mellitus patient was resumed on his home regimen -Hyperlipidemia -Nicotine dependence continued: Counseling was provided regarding this.
--- NOTE | 2018-11-21 11:01 | CC ---
CARDIAC CATHETERIZATION REPORT Mr. Javed is a 53-year-old male with known history of coronary artery disease, status post coronary artery bypass grafting, severe ischemic cardiomyopathy who has underwent stenting of his saphenous vein graft to the left circumflex in August of this year. He presented with symptoms of progressive dyspnea and chest tightness with minimal troponin elevation. In view of that, recommendation was made regarding cardiac catheterization. The procedure as well as the risks and the complications were discussed with the patient who is in full understanding and agreement. PROCEDURE: Patient was brought to quality assurance lab technician in a fasting semi-sedated state after receiving fentanyl and Benadryl and achieving moderate conscious sedated state. Using Xylocaine anesthesia and Seldinger technique, a 6-[place] sheath was introduced in the right femoral artery. Selective right and left angiography was performed using 6-[place] 4 bend right and left Kera catheter. Multiple views of the coronary artery including hemiaxial views were obtained. Following that the right Kera catheter was used to cannulate the saphenous vein graft to the OM 1 and 2 as well as the WALLACE. Images of the grafts were obtained. Following that, a 6-[place] tight pigtail catheter was introduced in the left ventricle and pressures were calculated. Following that, catheter and sheaths were removed. Hemostasis was obtained with deployment of Angio- Seal. There was no immediate complication. Patient was returned to his room in stable condition. FINDINGS: LEFT MAIN: This is a large-sized vessel bifurcating left circumflex, left anterior descending artery. Left main coronary artery has a 20% plaque without any evidence of high-grade stenosis. LEFT ANTERIOR DESCENDING ARTERY: This vessel is totally occluded proximally with no antegrade flow. LEFT CIRCUMFLEX: This vessel gives rise to a large first obtuse marginal branch that is totally occluded with no significant antegrade flow. AV groove circumflex is diffusely diseased. There is no obtuse marginal branch identified. RIGHT CORONARY ARTERY: This vessel is totally occluded proximally with ipsilateral collaterals with very slow flow in the distal right coronary artery that is diffusely disease. COLLATERALS: There is collateral from the left coronary system toward the right PDA. SAPHENOUS VEIN GRAFT TO THE SECOND OBTUSE MARGINAL BRANCH: The proximal distal anastomotic sites are patent. The saphenous vein graft proximally has a 40% to 50% plaque. The rest of the vessel has no high-grade stenosis. SAPHENOUS VEIN GRAFT TO THE OBTUSE MARGINAL BRANCH 1: The proximal distal anastomotic sites are patent. The flow to the OM is brisk. The stented segment proximally is patent with no significant stenosis. WALLACE to LAD: The distal anastomotic site is patent. The flow into the LAD is brisk. The LAD is diffusely diseased. LEFT VENTRICULOGRAM: Left ventriculogram is not performed. HEMODYNAMICS: There was no gradient across the aortic valve. The left ventricular end- diastolic pressure was 34 to 36 mmHg. CONCLUSION: 1. Severe triple-vessel coronary disease. 2. Patent WALLACE to LAD. 3. Patent saphenous vein graft to the first obtuse marginal branch with no evidence of restenosis in the stented segment. 4. Patent saphenous vein graft to the second obtuse marginal branch with a 40% to 50% stenosis and no progression of disease compared with the images obtained in August. RECOMMENDATION: At this time, I will continue medical therapy with aggressive coronary risk modifications that have been initiated. The patient will need to follow up with Dr. Moser regarding ICD implantation. The importance of medical compliance was discussed with the patient as well as smoking cessation. Duration of procedure 20 minutes. MMODL / IJN: [id number] /
[2018-11-21] MEDS: FUROSEMIDE 10 MG/ML 4 ML VIAL IV SCH (11:25)
[2018-11-21 11:43] LABS: Glucose,Whole Blood 229 mg/dL (75-99)
[2018-11-21] MEDS: SPIRONOLACTONE 25 MG TAB PO SCH (11:55)
[2018-11-21] MEDS: FLUTICASONE 50MCG/SPRAY NASAL 16GM EA NOSTRIL SCH (11:57)
--- NOTE | 2018-11-21 12:24 | ECHOF ---
Referral Reason:chest pain MEASUREMENTS -------- HEIGHT: 162.6 cm WEIGHT: 88.0 kg BP: 129/82 IVSd: 1.4 cm (0.6 - 1.1) LVIDd: 6.1 cm (3.9 - 5.3) LVPWd: 1.7 cm (0.6 - 1.1) IVSs: 1.4 cm LVIDs: 5.9 cm LVPWs: 1.7 cm LAESV Index (A-L): 45.17 ml/m Ao Diam: 3.7 cm (2.0 - 3.7) AV Cusp: 1.8 cm (1.5 - 2.6) LA Diam: 5.0 cm (2.7 - 3.8) MV EXCURSION: 14.924 mm (> 18.000) MV EF SLOPE: 92 mm/s (70 - 150) EPSS: 1.6 cm MV E Sedrick: 0.98 m/s MV DecT: 116 ms MV A Sedrick: 0.46 m/s MV E/A Ratio: 2.12 RAP: 5.00 mmHg RVSP: 6.76 mmHg FINDINGS -------- Sinus rhythm. This was a techncally difficult study with suboptimal views, , Lumason utilized for enhancement of im ages. The left ventricle is severely dilated. There is severe global hypokinesis of LV . Overall left v entricular systolic function is severely impaired with, an EF < 20%. Restrictive LV filling patter n, consistent with elevated LA pressure 26.95. The right ventricle is normal in size. The left atrium is markedly dilated. The right atrial size is normal. 5.0mg OF Lumason UTLIZED: 2 OR MORE WALL SEGMENTS NOT VISUALIZED. The aortic valve is trileaflet, and appears structurally normal. No aortic stenosis or regurgitation. Mild mitral annular calcification present. Mild mitral regurgitation is present. Mild tricuspid regurgitation present. Right ventricular systolic pressure is normal at < 35 mmHg. There is no evidence of pulmonary hypertension. Trace/mild (physiologic) pulmonic regurgitation. The aortic root size is normal. The inferior vena cava is dilated with poor inspiratory collapse which is consistent with estimated r ight atrial pressure of 20 mmHg. There is no pericardial effusion. CONCLUSIONS -------- 1. This was a techncally difficult study with suboptimal views, , Lumason utilized for enhancement of images. 2. The left ventricle is severely dilated. 3. There is severe global hypokinesis of LV . 4. Overall left ventricular systolic function is severely impaired with, an EF < 20%. 5. Restrictive LV filling pattern, consistent with elevated LA pressure 26.95. 6. The right ventricle is normal in size. 7. The left atrium is markedly dilated. 8. The right atrial size is normal. 9. 5.0mg OF Lumason UTLIZED: 2 OR MORE WALL SEGMENTS NOT VISUALIZED. 10. The aortic valve is trileaflet, and appears structurally normal. No aortic stenosis or regurgitat ion. 11. Mild mitral annular calcification present. 12. Mild mitral regurgitation is present. 13. Mild tricuspid regurgitation present. 14. Right ventricular systolic pressure is normal at < 35 mmHg. 15. There is no evidence of pulmonary hypertension. 16. Trace/mild (physiologic) pulmonic regurgitation. 17. The aortic root size is normal. 18. The inferior vena cava is dilated with poor inspiratory collapse which is consistent with estimat ed right atrial pressure of 20 mmHg. 19. There is no pericardial effusion. DRIVERS' CASH CLERK: Elaine Jacobs RDCS
[2018-11-21 16:58] LABS: Glucose,Whole Blood 194 mg/dL (75-99)
[2018-11-21] MEDS: FUROSEMIDE 20 MG TAB PO SCH (17:43)
[2018-11-21] MEDS: NICOTINE 21MG/24HR PATCH TRANSDERM SCH (20:37)
[2018-11-21 21:39] LABS: Glucose,Whole Blood 216 mg/dL (75-99)
[2018-11-22] MEDS: ACETAMINOPHEN TAB 325 MG TAB PO PRN ×2 (00:33→05:02)
[2018-11-22] MEDS ORDERED: FUROSEMIDE 10 MG/ML 4 ML VIAL ONE (04:50)
[2018-11-22 06:40] LABS: Basophils # (A) 0.1 k/uL (0-0.2); Basophils % (A) 1 %; Eosinophils # (A) 0.3 k/uL (0-0.7); Eosinophils % (A) 3 %; HCT 49.3 % (39.0-53.0); HGB 15.8 gm/dL (13.0-17.5); Lymphocytes % (A) 16 %; MCH 28.9 pg (25.0-35.0); MCV 90.3 fL (80.0-100.0); Mean Platelet Volume 7.2; Monocytes # (A) 0.6 k/uL (0-1.0); Monocytes % (A) 5 %; Neutrophils # (A) 9.2 k/uL (1.3-7.7); Neutrophils % (A) 74 %; Platelet Count 215 k/uL (150-450); RBC 5.46 m/uL (4.30-5.90); WBC 12.4 k/uL (3.8-10.6)
[2018-11-22 06:49] LABS: Anion Gap 9 mmol/L; Blood Urea Nitrogen 15 mg/dL (9-20); Calcium 9.1 mg/dL (8.4-10.2); Carbon Dioxide 23 mmol/L (22-30); Chloride 104 mmol/L (98-107); Glucose 214 mg/dL (74-99); Sodium 136 mmol/L (137-145)
[2018-11-22 06:49] LABS: Glucose,Whole Blood 232 mg/dL (75-99)
[2018-11-22] MEDS: PANTOPRAZOLE 40 MG TABLET PO SCH (07:14)
[2018-11-22] MEDS: INSULIN ASPART (NovoLOG) 100 UNIT/ML VIAL SQ SCH ×2 (07:14→12:17)
[2018-11-22 08:38] VITALS: TEMP 98.2
[2018-11-22] MEDS: DULoxetine HCL 30 MG CAPSULE.DR PO SCH (08:40)
[2018-11-22] MEDS: CLOPIDOGREL 75 MG TAB PO SCH (08:40)
[2018-11-22] MEDS: FLUTICASONE 50MCG/SPRAY NASAL 16GM EA NOSTRIL SCH (08:41)
[2018-11-22] MEDS: FUROSEMIDE 20 MG TAB PO SCH (08:41)
[2018-11-22] MEDS: METOPROLOL SUCCINATE (ER) 50 MG TAB.ER.24H PO SCH (08:41)
[2018-11-22] MEDS: NICOTINE 21MG/24HR PATCH TRANSDERM SCH (08:41)
[2018-11-22] MEDS: SPIRONOLACTONE 25 MG TAB PO SCH (08:41)
[2018-11-22] MEDS: LISINOPRIL 5 MG TAB PO SCH (08:41)
--- NOTE | 2018-11-22 08:52 | PN ---
PROGRESS NOTE Mr. Javed is a 53-year-old male with known history of coronary artery disease status post coronary artery bypass grafting, status post stenting of the saphenous vein graft to the obtuse marginal branch, who presented with symptoms of dyspnea and mild troponin elevation underwent cardiac catheterization was found to have no progression of disease. He had mild dyspnea yesterday better this morning. He is denying any chest pain. He denies any dizziness. He has been ambulating without difficulty. He continues to be at this time on aspirin once a day, Plavix 75 mg daily, Lipitor 80 mg daily, Lasix 40 mg twice a day, lisinopril 5 mg twice a day, metoprolol succinate 50 mg daily, spironolactone 25 mg daily. PHYSICAL EXAMINATION: Blood pressure 136/80 with the heart rate in the 80s. LUNGS: Clear. HEART: Regular rate and rhythm. S1, S2. No S3. No rub. ABDOMEN: Soft, nontender. Positive bowel sounds. RIGHT GROIN: No hematoma. LAB DATA: Lab data revealed BUN and creatinine 15 and 0.92. Hemoglobin of 15.8. IMPRESSION: 1. Symptoms of dyspnea with severe ischemic cardiomyopathy. 2. Mild troponin elevation related to the acute dyspnea. No evidence of acute coronary syndrome. 3. Status post stenting of the left circumflex graft stable. 4. History of chronic tobacco use. 5. Hypertension. 6. Hyperlipidemia. RECOMMENDATION: From the cardiac standpoint, we will continue present therapy. The patient should be able to be discharged home today and followed as an outpatient with Dr. Moser. MMTGL / GIGIN: [id number] /
[2018-11-22] MEDS ORDERED: ASPIRIN 325 MG TAB PO SCH (09:00)
[2018-11-22] MEDS ORDERED: ASPIRIN 81 MG PO SCH (09:00)
[2018-11-22] MEDS ORDERED: FUROSEMIDE 10 MG/ML 4 ML VIAL IV SCH (10:30)
--- NOTE | 2018-11-22 11:11 | XR ---
EXAMINATION TYPE: XR chest 1V portable DATE OF EXAM: 11/22/2018 Comparison: 11/20/2018 Clinical History: 53-year-old male with crackles and congestion Findings: Median sternotomy wires and post-CABG clips in the mediastinum. Heart borderline enlarged. Mild diffu se interstitial prominence is demonstrated. No consolidation or pleural effusion. Impression: Mild cardiomegaly and possible mild pulmonary vascular congestion. No [place] infiltrate or pulmonary e catherine.
[2018-11-22 11:36] LABS: Glucose,Whole Blood 249 mg/dL (75-99)
[2018-11-22 12:03] VITALS: BP 131/77; PULSE 74; RESP 16
--- NOTE | 2018-11-22 17:36 | P.DS ---
Providers Date of admission: 11/20/18 11:56 Attending physician: Shahnaz Guerra Consults: 11/20/18 04:59 Consult Physician Urgent Consulting Provider: [facility] Consult Reason/Comments: chest pain, CAD, trop 0.045 Do you want consulting provider notified?: Yes, Notify in am Primary care physician: [facility] Course: 53-year-old known history of coronary artery disease came in with shortness of breath patient is noncompliant with medications and continues to smoke patient was taken to [facility] because of shortness of breath, this was believed to be anginal equivalent patient did not have any significant atherosclerotic coronary occlusive disease that needed stenting. Patient will be discharged tomorrow. Patient doesn't have any short of breath now. 11/22/2018 Patient overnight had some pulmonary edema from IV fluids received for the procedure , patient is able to make at this time patient will be discharged today and patient will be on oral Lasix. PHYSICAL EXAMINATION: GENERAL: The patient is alert and oriented x3, not in any acute distress. Well developed, well nourished. HEENT: Pupils are round and equally reacting to light. EOMI. No scleral icterus. No conjunctival pallor. Normocephalic, atraumatic. No pharyngeal erythema. No thyromegaly. CARDIOVASCULAR: S1 and S2 present. No murmurs, rubs, or gallops. PULMONARY: Chest is clear to auscultation, no wheezing or crackles. ABDOMEN: Soft, nontender, nondistended, normoactive bowel sounds. No palpable organomegaly. MUSCULOSKELETAL: No joint swelling or deformity. EXTREMITIES: No cyanosis, clubbing, or pedal edema. NEUROLOGICAL: Gross neurological examination did not reveal any focal deficits. SKIN: No rashes. Assessment and Plan Plan: Shortness of breath : Patient was believed to have non-ST elevation myocardial infarction. but there is no significant atherosclerotic coronary occlusive disease that need stenting -Coronary artery disease with recent stents in the past -Ischemic cardio myopathy congestive heart failure chronic systolic dysfunction ejection fraction of 25% mild exacerbation last night presently euvolemic -Hypertension -type 2 diabetes mellitus patient was resumed on his home regimen -Hyperlipidemia -Nicotine dependence continued: Counseling was provided regarding this. Patient Condition at Discharge: Stable Plan - Discharge Summary New Discharge Prescriptions: New Aspirin 81 mg PO DAILY chew Furosemide [Lasix] 40 mg PO DAILY #30 tablet Atorvastatin [Lipitor] 80 mg PO HS #30 tab Metoprolol Succinate (ER) [Toprol XL] 50 mg PO DAILY #30 tab.er.24h Ranitidine HCl [Zantac] 150 mg PO BID #30 tab Continue Acetaminophen [Tylenol] 650 mg PO Q4H PRN PRN Reason: Pain DULoxetine HCL [Cymbalta] 30 mg PO TID Lisinopril [Zestril] 5 mg PO DAILY Pantoprazole [Protonix] 40 mg PO DAILY Fluticasone Nasal [place] [Flonase Nasal [place]] 1 spray EA NOSTRIL DAILY glipiZIDE [Glucotrol XL] 10 mg PO DAILY #30 tab.er.24 Magnesium Oxide [Mag-Oxide] 200 mg PO HS #30 tablet metFORMIN HCL 1,000 mg PO BID #60 tab Clopidogrel [Plavix] 75 mg PO DAILY #30 tab Spironolactone 25 mg PO DAILY #30 tablet Discontinued Aspirin 325 mg PO DAILY Discharge Medication List Acetaminophen [Tylenol] 650 mg PO Q4H PRN 03/08/18 [History] DULoxetine HCL [Cymbalta] 30 mg PO TID 08/25/18 [History] Lisinopril [Zestril] 5 mg PO DAILY 10/11/18 [History] Fluticasone Nasal [place] [Flonase Nasal [place]] 1 spray EA NOSTRIL DAILY 11/20/18 [History] Pantoprazole [Protonix] 40 mg PO DAILY 11/20/18 [History] Aspirin 81 mg PO DAILY chew 11/22/18 [Rx] Atorvastatin [Lipitor] 80 mg PO HS #30 tab 11/22/18 [Rx] Clopidogrel [Plavix] 75 mg PO DAILY #30 tab 11/22/18 [Rx] Furosemide [Lasix] 40 mg PO DAILY #30 tablet 11/22/18 [Rx] Magnesium Oxide [Mag-Oxide] 200 mg PO HS #30 tablet 11/22/18 [Rx] Metoprolol Succinate (ER) [Toprol XL] 50 mg PO DAILY #30 tab.er.24h 11/22/18 [Rx] Ranitidine HCl [Zantac] 150 mg PO BID #30 tab 11/22/18 [Rx] Spironolactone 25 mg PO DAILY #30 tablet 11/22/18 [Rx] glipiZIDE [Glucotrol XL] 10 mg PO DAILY #30 tab.er.24 11/22/18 [Rx] metFORMIN HCL 1,000 mg PO BID #60 tab 11/22/18 [Rx] Follow up Appointment(s)/Referral(s): May Marquez MD [Primary Care Provider] - 11/29/18 1:00 pm Fabiano Arroyo MD [STAFF PHYSICIAN] - 12/12/18 3:15 pm (At [facility] Office- previous appointment, office updated about cardiac cath and hospitalization.) Patient Instructions/Handouts: *Surgery [facility] - After Heart Catheterization - Medical Interpreter Instructions, Heart Healthy Diet (DC) Discharge Disposition: HOME SELF-CARE
[2018-11-22 19:38] LABS: Hemoglobin A1C 8.5 % (4.0-6.0)
[2018-11-22] MEDS ORDERED: ATORVASTATIN 80 MG TAB PO SCH (21:00)
== END 2018-11-22 14:41 | disposition home or self-care (01) | DRG 281 ==
LOC: EC 03:55 → 3SCARD 04:59 → OBSVTOIN 11:56 → 3SCARD 11-21 23:20
PROVIDERS: ADMIT Hospitalist; ATTEND Hospitalist
PROC: B2181ZZ Fluoroscopy of Left Internal Mammary Bypass Graft using Low Osmolar Contrast (ICD-10-PCS; 2018-11-21)
PROC: B2111ZZ Fluoroscopy of Multiple Coronary Arteries using Low Osmolar Contrast (ICD-10-PCS; 2018-11-21)
PROC: 4A023N7 Measurement of Cardiac Sampling and Pressure, Left Heart, Percutaneous Approach (ICD-10-PCS; principal; 2018-11-21 10:00)
DX: I21.4 Non-ST elevation (NSTEMI) myocardial infarction (principal); I50.22 Chronic systolic (congestive) heart failure; I25.82 Chronic total occlusion of coronary artery; I11.0 Hypertensive heart disease with heart failure; E11.9 Type 2 diabetes mellitus without complications; I25.5 Ischemic cardiomyopathy; I25.110 Atherosclerotic heart disease of native coronary artery with unstable angina pectoris; J44.9 Chronic obstructive pulmonary disease, unspecified; I25.2 Old myocardial infarction; E78.5 Hyperlipidemia, unspecified; F31.9 Bipolar disorder, unspecified; F41.9 Anxiety disorder, unspecified; R09.02 Hypoxemia; F17.210 Nicotine dependence, cigarettes, uncomplicated; Z71.6 Tobacco abuse counseling; Z79.84 Long term (current) use of oral hypoglycemic drugs; Z79.82 Long term (current) use of aspirin; Z79.02 Long term (current) use of antithrombotics/antiplatelets; Z79.899 Other long term (current) drug therapy; Z79.51 Long term (current) use of inhaled steroids; Z91.14 Patient's other noncompliance with medication regimen; Z88.5 Allergy status to narcotic agent; Z95.5 Presence of coronary angioplasty implant and graft; Z86.73 Personal history of transient ischemic attack (TIA), and cerebral infarction without residual deficits; Z95.1 Presence of aortocoronary bypass graft; Z88.0 Allergy status to penicillin; Z88.2 Allergy status to sulfonamides; Z91.048 Other nonmedicinal substance allergy status
CPT/HCPCS: 36415; 71045; 80048; 80053; 80061; 83036; 83735; 83880; 84484; 85025; 85610; 85730; 93005; 93306; 93459; 94640; 94760; 99285

== ENCOUNTER 2018-11-26 22:59 | Emergency (ER) | payer OTHER ==
[2018-11-26 23:09] VITALS: TEMP 98.1
[2018-11-26] MEDS ORDERED: DIAZEPAM 5 MG/ML 2 ML INJ IVP STA (23:42)
[2018-11-26] MEDS ORDERED: SODIUM CHLORIDE 0.9% 500 ML 500 ML IV ONE (23:42)
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
[2018-11-27 00:08] VITALS: RESP 16
[2018-11-27] MEDS ORDERED: ACETAMINOPHEN TAB 500 MG TAB PO STA (00:21)
[2018-11-27 00:43] LABS: Basophils # (A) 0.1 k/uL (0-0.2); Basophils % (A) 1 %; Eosinophils # (A) 0.4 k/uL (0-0.7); Eosinophils % (A) 3 %; HCT 43.2 % (39.0-53.0); HGB 14.5 gm/dL (13.0-17.5); Lymphocytes # (A) 1.7 k/uL (1.0-4.8); Lymphocytes % (A) 16 %; MCH 29.3 pg (25.0-35.0); MCHC 33.5 g/dL (31.0-37.0); MCV 87.5 fL (80.0-100.0); Monocytes # (A) 0.8 k/uL (0-1.0); Monocytes % (A) 7 %; Neutrophils # (A) 7.9 k/uL (1.3-7.7); Neutrophils % (A) 72 %; Platelet Count 232 k/uL (150-450); RBC 4.94 m/uL (4.30-5.90); RDW 13.8 % (11.5-15.5)
[2018-11-27 01:11] LABS: Albumin 4.2 g/dL (3.5-5.0); Calcium 9.9 mg/dL (8.4-10.2); Magnesium 1.7 mg/dL (1.6-2.3); Potassium 3.9 mmol/L (3.5-5.1); Total Bilirubin 1.1 mg/dL (0.2-1.3); Total Protein 6.8 g/dL (6.3-8.2)
[2018-11-27 01:34] VITALS: BP 133/72; PULSE 82
== END 2018-11-27 01:50 | disposition home or self-care (01) ==
LOC: EC 22:59
DX: R25.2 Cramp and spasm (principal); I25.119 Atherosclerotic heart disease of native coronary artery with unspecified angina pectoris; F31.9 Bipolar disorder, unspecified; F41.9 Anxiety disorder, unspecified; I11.0 Hypertensive heart disease with heart failure; I50.9 Heart failure, unspecified; I25.2 Old myocardial infarction; F17.200 Nicotine dependence, unspecified, uncomplicated; Z79.51 Long term (current) use of inhaled steroids; Z79.899 Other long term (current) drug therapy; Z88.0 Allergy status to penicillin; Z88.2 Allergy status to sulfonamides; Z88.5 Allergy status to narcotic agent; Z91.048 Other nonmedicinal substance allergy status; Z95.1 Presence of aortocoronary bypass graft; Z95.5 Presence of coronary angioplasty implant and graft; Z86.73 Personal history of transient ischemic attack (TIA), and cerebral infarction without residual deficits
CPT/HCPCS: 36415; 80053; 83735; 85025; 96360; 99283

== ENCOUNTER 2019-04-15 13:28 | Observation (INO) | payer OTHER ==
[2019-04-15] MEDS ORDERED: SODIUM CHLORIDE 0.9% 500 ML 500 ML IV STA (13:39)
[2019-04-15] MEDS ORDERED: IPRATROPIUM-ALBUTEROL 3 ML NEB INHALATION STA (13:40)
[2019-04-15 13:50] LABS: Glucose,Whole Blood 339 mg/dL (75-99)
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
[2019-04-15 14:00] LABS: Basophils # (A) 0.2 k/uL (0-0.2); Basophils % (A) 1 %; Eosinophils # (A) 0.2 k/uL (0-0.7); Eosinophils % (A) 2 %; HCT 43.2 % (39.0-53.0); HGB 14.6 gm/dL (13.0-17.5); Lymphocytes # (A) 1.6 k/uL (1.0-4.8); Lymphocytes % (A) 14 %; MCH 30.6 pg (25.0-35.0); MCHC 33.7 g/dL (31.0-37.0); MCV 90.7 fL (80.0-100.0); Mean Platelet Volume 6.1; Monocytes # (A) 0.4 k/uL (0-1.0); Monocytes % (A) 4 %; Neutrophils # (A) 8.7 k/uL (1.3-7.7); Neutrophils % (A) 77 %; Platelet Count 278 k/uL (150-450); RBC 4.77 m/uL (4.30-5.90); WBC 11.3 k/uL (3.8-10.6)
[2019-04-15] MEDS ORDERED: LABETALOL 5 MG/ML VIAL MDV IVP STA (14:00)
[2019-04-15 14:12] LABS: INR 0.9 (<1.2); Partial Thromboplastin Time 26.2 sec (22.0-30.0); Prothrombin Time 9.4 sec (9.0-12.0)
[2019-04-15 14:19] LABS: ALT 33 U/L (21-72); AST 39 U/L (17-59); African American GFR (CKD) >90 (>60 ml/min/1.73 sqM); Albumin 4.3 g/dL (3.5-5.0); Alkaline Phosphatase 129 U/L (38-126); Anion Gap 14 mmol/L; Blood Urea Nitrogen 10 mg/dL (9-20); Carbon Dioxide 25 mmol/L (22-30); Chloride 98 mmol/L (98-107); Glucose 344 mg/dL (74-99); Magnesium 1.7 mg/dL (1.6-2.3); Sodium 137 mmol/L (137-145); Total Bilirubin 1.4 mg/dL (0.2-1.3); Total Protein 7.7 g/dL (6.3-8.2)
--- NOTE | 2019-04-15 14:21 | XR ---
EXAMINATION TYPE: XR chest 2V DATE OF EXAM: 04/15/2019 COMPARISON: 12/20/2018 HISTORY: Short of breath TECHNIQUE: Frontal and lateral views of the chest are obtained. FINDINGS: There is pulmonary interstitial and alveolar edema. Heart is borderline enlarged. There is very slight blunting of the costophrenic angles. There are sternal wires. Bony thorax is intact. IMPRESSION: There is new pulmonary edema compared to old exam and could relate to acute congestive h eart failure.
[2019-04-15] MEDS ORDERED: KETOROLAC 30 MG/ML 1 ML VIAL IVP STA (14:25)
[2019-04-15] MEDS ORDERED: INSULIN ASPART (NovoLOG) 100 UNIT/ML VIAL SQ ONE (14:25)
[2019-04-15 14:35] LABS: Potassium 3.9 mmol/L (3.5-5.1)
[2019-04-15] MEDS ORDERED: ALBUTEROL NEBULIZED 2.5 MG/3 ML INHALATION PRN (15:16)
[2019-04-15] MEDS ORDERED: AZITHROMYCIN 500 MG in SODIUM CHLORIDE 0.9% 250 ML IVPB STA (15:16)
[2019-04-15] MEDS ORDERED: PNEUMONIA PROTOCOL UTILIZED 1 EACH MISC PO PRN (15:16)
[2019-04-15] MEDS ORDERED: methylPREDNISolone SOD SUCCI 125 MG/2 ML VIAL IV STA (15:18)
[2019-04-15] MEDS ORDERED: FUROSEMIDE 10 MG/ML 2 ML VIAL IV STA (15:19)
[2019-04-15 17:05] LABS: Glucose,Whole Blood 192 mg/dL (75-99)
[2019-04-15] MEDS: IPRATROPIUM-ALBUTEROL 3 ML NEB INHALATION SCH ×2 (17:05→19:46)
[2019-04-15] MEDS: methylPREDNISolone SOD SUCCI 125 MG/2 ML VIAL IV SCH (18:11)
[2019-04-15] MEDS: INSULIN ASPART (NovoLOG) 100 UNIT/ML VIAL SQ SCH ×2 (18:18→20:08)
[2019-04-15] MEDS ORDERED: ACETAMINOPHEN TAB 325 MG TAB PO PRN (19:41)
[2019-04-15] MEDS: metFORMIN 500 MG TAB PO SCH (20:02)
[2019-04-15] MEDS: DULoxetine HCL 30 MG CAPSULE.DR PO SCH (20:03)
[2019-04-15 20:07] LABS: Glucose,Whole Blood 229 mg/dL (75-99)
[2019-04-15] MEDS ORDERED: MAGNESIUM OXIDE 400 MG TAB PO SCH (21:00)
[2019-04-15] MEDS ORDERED: ATORVASTATIN 80 MG TAB PO SCH (21:00)
[2019-04-16] MEDS: methylPREDNISolone SOD SUCCI 125 MG/2 ML VIAL IV SCH ×2 (00:52→08:57)
[2019-04-16 04:23] VITALS: RESP 24
[2019-04-16 05:57] LABS: Glucose,Whole Blood 250 mg/dL (75-99)
[2019-04-16] MEDS: INSULIN ASPART (NovoLOG) 100 UNIT/ML VIAL SQ SCH ×2 (06:08→12:25)
[2019-04-16] MEDS: metFORMIN 500 MG TAB PO SCH (07:01)
[2019-04-16] MEDS: IPRATROPIUM-ALBUTEROL 3 ML NEB INHALATION SCH ×2 (08:41→12:59)
[2019-04-16] MEDS: DULoxetine HCL 30 MG CAPSULE.DR PO SCH (08:57)
[2019-04-16] MEDS ORDERED: glipiZIDE 5 MG TAB PO SCH (09:00)
[2019-04-16] MEDS ORDERED: ASPIRIN 81 MG PO SCH (09:00)
[2019-04-16] MEDS ORDERED: METOPROLOL SUCCINATE (ER) 50 MG TAB.ER.24H PO SCH (09:00)
[2019-04-16] MEDS ORDERED: SPIRONOLACTONE 25 MG TAB PO SCH (09:00)
[2019-04-16] MEDS ORDERED: FUROSEMIDE 10 MG/ML 4 ML VIAL IV STA (09:25)
[2019-04-16 09:26] VITALS: BP 145/74; TEMP 98.4
[2019-04-16] MEDS ORDERED: ACETAMINOPHEN TAB 325 MG TAB PO PRN (09:29)
[2019-04-16] MEDS ORDERED: NICOTINE 21MG/24HR PATCH TRANSDERM SCH (09:30)
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
--- NOTE | 2019-04-16 11:24 | P.DS ---
Providers Date of admission: 04/15/19 16:15 Attending physician: Damaris Delgado Consults: 04/16/19 09:18 Consult Physician Routine Consulting Provider: Prashanth Menon Consult Reason/Comments: CHF Do you want consulting provider notified?: Yes Primary care physician: [facility] Course: Refer to my HPI Patient Condition at Discharge: Fair Plan - Discharge Summary Discharge Rx Participant: No New Discharge Prescriptions: New Clindamycin [Cleocin] 300 mg PO TID #20 cap Nicotine 21Mg/24Hr Patch [Habitrol] 1 patch TRANSDERM DAILY #14 patch Furosemide [Lasix] 20 mg PO DAILY #30 tab Budesonide-Formot 160-4.5 Mcg [Symbicort 160-4.5 Mcg Inhaler] 2 puff INHALATION BID #1 inhaler Continue DULoxetine HCL [Cymbalta] 30 mg PO TID Albuterol Inhaler [Ventolin Hfa Inhaler] 1 - 2 puff INHALATION RT-Q6H PRN #1 inhaler PRN Reason: Shortness Of Breath Naproxen Sodium [Aleve] 220 mg PO Q12H PRN PRN Reason: Pain Acetaminophen [Tylenol] 325 - 650 mg PO Q6H PRN PRN Reason: Pain Spironolactone [Aldactone] 50 mg PO DAILY #30 tab Aspirin 81 mg PO DAILY #30 chew glipiZIDE [Glucotrol XL] 10 mg PO DAILY #30 tab.er.24 Atorvastatin [Lipitor] 80 mg PO HS #30 tab Magnesium 200 mg PO HS #30 tab metFORMIN HCL 1,000 mg PO BID #60 tab Metoprolol Succinate (ER) [Toprol XL] 50 mg PO DAILY #30 tab.er.24h Discontinued Spironolactone [Aldactone] 25 mg PO DAILY Aspirin 325 - 650 mg PO QID PRN PRN Reason: Pain Discharge Medication List DULoxetine HCL [Cymbalta] 30 mg PO TID 08/25/18 [History] Albuterol Inhaler [Ventolin Hfa Inhaler] 1 - 2 puff INHALATION RT-Q6H PRN #1 inhaler 12/21/18 [Rx] Acetaminophen [Tylenol] 325 - 650 mg PO Q6H PRN 04/15/19 [History] Naproxen Sodium [Aleve] 220 mg PO Q12H PRN 04/15/19 [History] Aspirin 81 mg PO DAILY #30 chew 04/16/19 [Rx] Atorvastatin [Lipitor] 80 mg PO HS #30 tab 04/16/19 [Rx] Budesonide-Formot 160-4.5 Mcg [Symbicort 160-4.5 Mcg Inhaler] 2 puff INHALATION BID #1 inhaler 04/16/19 [Rx] Clindamycin [Cleocin] 300 mg PO TID #20 cap 04/16/19 [Rx] Furosemide [Lasix] 20 mg PO DAILY #30 tab 04/16/19 [Rx] Magnesium 200 mg PO HS #30 tab 04/16/19 [Rx] Metoprolol Succinate (ER) [Toprol XL] 50 mg PO DAILY #30 tab.er.24h 04/16/19 [Rx] Nicotine 21Mg/24Hr Patch [Habitrol] 1 patch TRANSDERM DAILY #14 patch 04/16/19 [Rx] Spironolactone [Aldactone] 50 mg PO DAILY #30 tab 04/16/19 [Rx] glipiZIDE [Glucotrol XL] 10 mg PO DAILY #30 tab.er.24 04/16/19 [Rx] metFORMIN HCL 1,000 mg PO BID #60 tab 04/16/19 [Rx] Follow up Appointment(s)/Referral(s): May Marquez MD [Primary Care Provider] - 3 Days Discharge Disposition: HOME SELF-CARE
[2019-04-16 11:43] LABS: Glucose,Whole Blood 233 mg/dL (75-99)
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
[2019-04-16] MEDS ORDERED: METOPROLOL SUCCINATE (ER) 25 MG TAB.ER.24H PO STA (12:40)
[2019-04-16] MEDS ORDERED: CLOPIDOGREL 75 MG TAB PO SCH (12:45)
[2019-04-16 13:10] VITALS: PULSE 90
[2019-04-16] MEDS ORDERED: CLINDAMYCIN 150 MG CAP PO SCH (16:00)
[2019-04-16] MEDS ORDERED: AMOXIC-POT CLAV 875-125MG 1 EACH TAB PO SCH (21:00)
[2019-04-16] MEDS ORDERED: FUROSEMIDE 10 MG/ML 2 ML VIAL IV SCH (21:00)
[2019-04-17] MEDS ORDERED: METOPROLOL SUCCINATE (ER) 25 MG TAB.ER.24H PO SCH (09:00)
== END 2019-04-16 15:19 | disposition home or self-care (01) ==
LOC: EC 13:28 → 3SCARD 16:15 → INTOOBSV 16:15 → UNDOADMIN 16:15 → UNDODISIN 04-16 15:19
PROVIDERS: ADMIT Internal Medicine; ATTEND Internal Medicine
DX: I11.0 Hypertensive heart disease with heart failure (principal); I50.23 Acute on chronic systolic (congestive) heart failure; F17.210 Nicotine dependence, cigarettes, uncomplicated; F31.9 Bipolar disorder, unspecified; F41.9 Anxiety disorder, unspecified; I25.10 Atherosclerotic heart disease of native coronary artery without angina pectoris; I25.2 Old myocardial infarction; I25.5 Ischemic cardiomyopathy; J00 Acute nasopharyngitis [common cold]; J44.9 Chronic obstructive pulmonary disease, unspecified; K04.7 Periapical abscess without sinus; R09.02 Hypoxemia; Z79.02 Long term (current) use of antithrombotics/antiplatelets; Z79.51 Long term (current) use of inhaled steroids; Z79.82 Long term (current) use of aspirin; Z79.84 Long term (current) use of oral hypoglycemic drugs; E78.5 Hyperlipidemia, unspecified; E11.65 Type 2 diabetes mellitus with hyperglycemia; Z79.899 Other long term (current) drug therapy; Z82.49 Family history of ischemic heart disease and other diseases of the circulatory system; Z86.73 Personal history of transient ischemic attack (TIA), and cerebral infarction without residual deficits; Z91.14 Patient's other noncompliance with medication regimen; Z95.1 Presence of aortocoronary bypass graft; Z59.0 Homelessness; F13.11 Sedative, hypnotic or anxiolytic abuse, in remission; F12.11 Cannabis abuse, in remission; Z87.81 Personal history of (healed) traumatic fracture; Z88.5 Allergy status to narcotic agent; Z88.0 Allergy status to penicillin; Z88.2 Allergy status to sulfonamides; Z91.048 Other nonmedicinal substance allergy status; Z88.1 Allergy status to other antibiotic agents; Z88.8 Allergy status to other drugs, medicaments and biological substances; R06.03 Acute respiratory distress; Z79.1 Long term (current) use of non-steroidal anti-inflammatories (NSAID)
CPT/HCPCS: 96376; 96361; 93005 ×2; 96365; 96367; 96375; 99285; 36415; 94640 ×4; 94760; 83880; 80053; 83605; 83735; 84484 ×2; 85025; 85610; 85730; 87040; 71046; G0378 ×2; S4990; J1940 ×2; J2930 ×2; J0456; J0696 ×2; J1885

== ENCOUNTER 2019-05-02 23:19 | Inpatient (IN) | payer OTHER ==
--- NOTE | 2019-05-02 23:55 | XR ---
EXAMINATION TYPE: XR chest 2V DATE OF EXAM: 05/02/2019 COMPARISON: NONE HISTORY: Short of breath TECHNIQUE: Frontal and lateral views of the chest are obtained. FINDINGS: There are sternal wires. There is pulmonary interstitial edema. There is no pleural effusi on. There are no hilar masses. Bony thorax is intact. IMPRESSION: There is pulmonary edema improved compared to last exam and would be consistent with acu te heart failure or acute pulmonary interstitial pneumonia.
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
[2019-05-03 00:56] LABS: Basophils # (A) 0.2 k/uL (0-0.2); Basophils % (A) 2 %; Eosinophils # (A) 0.3 k/uL (0-0.7); Eosinophils % (A) 3 %; HCT 44.8 % (39.0-53.0); HGB 14.4 gm/dL (13.0-17.5); Lymphocytes # (A) 2.5 k/uL (1.0-4.8); Lymphocytes % (A) 22 %; MCH 28.9 pg (25.0-35.0); MCHC 32.1 g/dL (31.0-37.0); MCV 89.9 fL (80.0-100.0); Mean Platelet Volume 6.3; Monocytes # (A) 0.5 k/uL (0-1.0); Monocytes % (A) 5 %; Neutrophils # (A) 7.8 k/uL (1.3-7.7); Neutrophils % (A) 68 %; Platelet Count 326 k/uL (150-450); RBC 4.98 m/uL (4.30-5.90); RDW 13.2 % (11.5-15.5); WBC 11.5 k/uL (3.8-10.6)
[2019-05-03 01:06] LABS: INR 0.9 (<1.2); Partial Thromboplastin Time 24.8 sec (22.0-30.0); Prothrombin Time 9.9 sec (9.0-12.0)
[2019-05-03 01:10] LABS: ALT 35 U/L (21-72); AST 24 U/L (17-59); African American GFR (CKD) >90 (>60 ml/min/1.73 sqM); Alkaline Phosphatase 102 U/L (38-126); Anion Gap 8 mmol/L; Blood Urea Nitrogen 14 mg/dL (9-20); Calcium 9.3 mg/dL (8.4-10.2); Carbon Dioxide 25 mmol/L (22-30); Chloride 102 mmol/L (98-107); Glucose 344 mg/dL (74-99); Sodium 135 mmol/L (137-145); Total Bilirubin 1.1 mg/dL (0.2-1.3); Total Protein 7.1 g/dL (6.3-8.2)
[2019-05-03] MEDS ORDERED: NICOTINE 14MG/24HR PATCH TRANSDERM STA (02:05)
[2019-05-03] MEDS ORDERED: NITROGLYCERIN SL TABS 0.4 MG TAB SUBLINGUAL PRN (02:08)
[2019-05-03] MEDS ORDERED: ASPIRIN 81 MG PO STA (02:08)
[2019-05-03] MEDS ORDERED: METOPROLOL SUCCINATE (ER) 50 MG TAB.ER.24H PO STA (05:11)
[2019-05-03] MEDS ORDERED: FUROSEMIDE 10 MG/ML 4 ML VIAL IV SCH (09:00)
[2019-05-03] MEDS ORDERED: METOPROLOL SUCCINATE (ER) 50 MG TAB.ER.24H PO SCH (09:00)
[2019-05-03] MEDS ORDERED: SPIRONOLACTONE 25 MG TAB PO SCH (09:15)
[2019-05-03 09:18] LABS: Glucose,Whole Blood 261 mg/dL (75-99)
[2019-05-03] MEDS: FUROSEMIDE 100 MG in SODIUM CHLORIDE 0.9% 90 ML IV SCH ×2 (10:36→18:02)
[2019-05-03] MEDS: HEPARIN SODIUM,PORCINE 5,000 UNIT/ML 1 ML VIAL SQ SCH ×3 (10:37→22:52)
[2019-05-03] MEDS: metFORMIN 500 MG TAB PO SCH ×2 (11:07→17:55)
[2019-05-03] MEDS: LOSARTAN 50 MG TAB PO SCH (11:07)
[2019-05-03] MEDS: CARVEDILOL 6.25 MG TAB PO SCH ×2 (11:07→17:55)
[2019-05-03] MEDS ORDERED: INFLUENZA VACCINE (6 MOS+) 60 MCG/0.5 ML SYRINGE IM ONE (12:14)
[2019-05-03] MEDS: DULoxetine HCL 30 MG CAPSULE.DR PO SCH ×3 (12:28→22:53)
[2019-05-03] MEDS: SPIRONOLACTONE 25 MG TAB PO SCH (12:28)
[2019-05-03] MEDS: glipiZIDE 5 MG TAB PO SCH ×2 (12:29→17:55)
[2019-05-03 12:39] LABS: Glucose,Whole Blood 300 mg/dL (75-99)
[2019-05-03] MEDS: INSULIN ASPART (NovoLOG) 100 UNIT/ML VIAL SQ SCH ×3 (12:51→20:47)
[2019-05-03] MEDS: AZITHROMYCIN 500 MG TAB PO SCH (13:57)
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
[2019-05-03] MEDS: ACETAMINOPHEN TAB 325 MG TAB PO PRN (15:29)
[2019-05-03] MEDS: guaiFENesin 600 MG TABLET.ER PO PRN (17:39)
[2019-05-03 17:45] LABS: Glucose,Whole Blood 181 mg/dL (75-99)
[2019-05-03] MEDS: SYMBICORT 160-4.5 MCG INHALER INHALATION SCH (19:52)
[2019-05-03 20:40] LABS: Glucose,Whole Blood 139 mg/dL (75-99)
[2019-05-03] MEDS: MAGNESIUM OXIDE 400 MG TAB PO SCH (20:46)
[2019-05-03] MEDS: ATORVASTATIN 80 MG TAB PO SCH (20:46)
[2019-05-03] MEDS: INSULIN DETEMIR (LEVEMIR) 100 UNIT/ML SYR SQ SCH (20:47)
[2019-05-04] MEDS: ACETAMINOPHEN TAB 325 MG TAB PO PRN (01:00)
[2019-05-04] MEDS: FUROSEMIDE 100 MG in SODIUM CHLORIDE 0.9% 90 ML IV SCH ×2 (05:15→14:28)
[2019-05-04 06:17] LABS: Glucose,Whole Blood 158 mg/dL (75-99)
[2019-05-04] MEDS: INSULIN ASPART (NovoLOG) 100 UNIT/ML VIAL SQ SCH ×4 (06:55→20:53)
[2019-05-04] MEDS: glipiZIDE 5 MG TAB PO SCH ×2 (06:55→17:21)
[2019-05-04] MEDS: CARVEDILOL 6.25 MG TAB PO SCH ×2 (06:55→17:21)
[2019-05-04] MEDS: metFORMIN 500 MG TAB PO SCH ×2 (06:55→17:21)
[2019-05-04 07:22] LABS: African American GFR (CKD) >90 (>60 ml/min/1.73 sqM); Anion Gap 7 mmol/L; Blood Urea Nitrogen 18 mg/dL (9-20); Calcium 9.3 mg/dL (8.4-10.2); Carbon Dioxide 29 mmol/L (22-30); Chloride 101 mmol/L (98-107); Glucose 166 mg/dL (74-99); Magnesium 1.8 mg/dL (1.6-2.3); Potassium 3.6 mmol/L (3.5-5.1); Sodium 137 mmol/L (137-145)
[2019-05-04] MEDS: SYMBICORT 160-4.5 MCG INHALER INHALATION SCH ×2 (08:52→20:58)
[2019-05-04] MEDS ORDERED: ASPIRIN 325 MG TAB PO SCH (09:00)
[2019-05-04] MEDS: AZITHROMYCIN 500 MG TAB PO SCH (10:07)
[2019-05-04] MEDS: HEPARIN SODIUM,PORCINE 5,000 UNIT/ML 1 ML VIAL SQ SCH ×3 (10:07→23:52)
[2019-05-04] MEDS: METOPROLOL SUCCINATE (ER) 50 MG TAB.ER.24H PO SCH (10:07)
[2019-05-04] MEDS: ASPIRIN 81 MG PO SCH (10:07)
[2019-05-04] MEDS: SPIRONOLACTONE 25 MG TAB PO SCH (10:08)
[2019-05-04] MEDS: DULoxetine HCL 30 MG CAPSULE.DR PO SCH ×3 (10:11→21:16)
--- NOTE | 2019-05-04 11:27 | P.PN ---
Subjective This is Dena Abbott PA-C dictating a progress note on this patient The patient was interviewed and examined by me as well as by Dr. Moser Case discussed with Dr. Moser and he agrees with the plan of care IMPRESSION / ASSESSMENT: Acute on chronic systolic CHF exacerbation, breathing improving on Lasix drip Ischemic cardiomyopathy, previous echo in December showed EF less than 20% CAD status post CABG Hypertension Dyslipidemia PLAN: Continue Lasix drip and convert to IV tomorrow Continue aspirin beta blockers and statins Continue losartan Continue spironolactone Consider ICD implantation in the future once heart failure and breathing stabilized HPI/interval history Patient is a 54-year-old male with a past medical history significant for ischemic cardiomyopathy, CAD status post CABG, hypertension, dyslipidemia who presented with complaints of shortness of breath and productive cough. He was diagnosed with an acute CHF exacerbation and bronchitis and has been started on a Lasix drip and antibiotics. He is diuresing well. Patient seen and examined sitting up at the side of the bed. States his breathing has improved. Continues to have a productive cough and runny nose. He has chronic orthopnea. No chest pain palpitations or dizziness. EXAMINATION Temperature 97.8F, pulse 74, respirations 20, blood pressure 113/72, oxygen saturation 97% on 2 L nasal cannula Patient seen and examined sitting up at the side of the bed, in no acute distress Lungs diminished with crackles at the bases bilaterally Heart is regular, no murmurs rubs or gallops noted No elevated JVD appreciated No lower extremity edema REVIEW OF LABS, ECG Sodium 137, potassium 3.6, BUN 18, creatinine 0.99, magnesium 1.8 Objective - Vital Signs Vital signs: Vital Signs Temp 97.8 F 05/04/19 08:00 Pulse 74 05/04/19 08:00 Resp 20 05/04/19 08:00 BP 113/72 05/04/19 08:00 Pulse Ox 97 05/04/19 08:00 Intake & Output 05/03/19 05/04/19 05/04/19 18:59 06:59 18:59 Intake Total 74.333 100 360 Output Total 1200 2080 1100 Balance -1125.667 -1980 -740 Weight 88.4 kg Intake: Intake, IV Titration 74.333 100 Amount Furosemide 100 mg In 74.333 100 Sodium Chloride 0.9% 90 ml @ 10 MG/HR 10 mls/hr IV .Q10H MARIELENA Rx#: [id number] Oral 360 Output: Urine 1200 2080 1100 Other: Voiding Method Urinal # Voids 2 - Labs CBC & Chem 7: 05/03/19 00:48 05/04/19 06:24 Labs: Abnormal Lab Results - Last 24 Hours (Table) 05/03/19 05/03/19 05/03/19 Range/Units 12:37 17:43 20:38 Glucose (74-99) mg/dL POC Glucose (mg/dL) 300 H 181 H 139 H (75-99) mg/dL 05/04/19 05/04/19 Range/Units 06:15 06:24 Glucose 166 H (74-99) mg/dL POC Glucose (mg/dL) 158 H (75-99) mg/dL Microbiology - Last 24 Hours (Table) 05/03/19 19:57 Gram Stain - Preliminary Sputum Sputum Culture - Preliminary
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
[2019-05-04] MEDS ORDERED: Potassium Replacement Protocol 1 EACH MISC MISCELLANE PRN (12:09)
[2019-05-04 12:10] LABS: Glucose,Whole Blood 222 mg/dL (75-99)
[2019-05-04] MEDS: LOSARTAN 50 MG TAB PO SCH (12:29)
[2019-05-04] MEDS: NICOTINE 14MG/24HR PATCH TRANSDERM SCH (12:29)
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
[2019-05-04] MEDS: guaiFENesin 600 MG TABLET.ER PO PRN (14:28)
[2019-05-04 16:29] LABS: Hemoglobin A1C 9.3 % (4.0-6.0)
[2019-05-04 17:37] LABS: Glucose,Whole Blood 196 mg/dL (75-99)
[2019-05-04 20:31] LABS: Glucose,Whole Blood 266 mg/dL (75-99)
[2019-05-04] MEDS: INSULIN DETEMIR (LEVEMIR) 100 UNIT/ML SYR SQ SCH (20:53)
[2019-05-04] MEDS: MAGNESIUM OXIDE 400 MG TAB PO SCH (20:53)
[2019-05-04] MEDS: ATORVASTATIN 80 MG TAB PO SCH (20:53)
[2019-05-04] MEDS: IPRATROPIUM-ALBUTEROL 3 ML NEB INHALATION PRN (20:58)
[2019-05-05] MEDS: FUROSEMIDE 100 MG in SODIUM CHLORIDE 0.9% 90 ML IV SCH ×2 (01:15→13:44)
[2019-05-05 06:16] LABS: Glucose,Whole Blood 216 mg/dL (75-99)
[2019-05-05] MEDS: INSULIN ASPART (NovoLOG) 100 UNIT/ML VIAL SQ SCH ×4 (06:27→20:46)
[2019-05-05] MEDS: glipiZIDE 5 MG TAB PO SCH ×2 (06:27→17:41)
[2019-05-05] MEDS: CARVEDILOL 6.25 MG TAB PO SCH ×2 (06:27→17:41)
[2019-05-05] MEDS: metFORMIN 500 MG TAB PO SCH ×2 (06:27→17:41)
[2019-05-05 07:20] LABS: HCT 44.8 % (39.0-53.0); MCH 29.5 pg (25.0-35.0); MCHC 33.5 g/dL (31.0-37.0); MCV 88.2 fL (80.0-100.0); Mean Platelet Volume 5.9; Platelet Count 322 k/uL (150-450); RBC 5.09 m/uL (4.30-5.90); RDW 13.1 % (11.5-15.5); WBC 9.5 k/uL (3.8-10.6)
[2019-05-05] MEDS: IPRATROPIUM-ALBUTEROL 3 ML NEB INHALATION PRN ×4 (07:25→21:03)
[2019-05-05] MEDS: SYMBICORT 160-4.5 MCG INHALER INHALATION SCH ×2 (07:26→21:04)
[2019-05-05 07:30] LABS: Calcium 10.1 mg/dL (8.4-10.2); Magnesium 1.8 mg/dL (1.6-2.3); Potassium 3.6 mmol/L (3.5-5.1)
[2019-05-05] MEDS: HEPARIN SODIUM,PORCINE 5,000 UNIT/ML 1 ML VIAL SQ SCH ×3 (09:32→23:19)
[2019-05-05] MEDS: NICOTINE 14MG/24HR PATCH TRANSDERM SCH (09:32)
[2019-05-05] MEDS: SPIRONOLACTONE 25 MG TAB PO SCH (09:32)
[2019-05-05] MEDS: ASPIRIN 81 MG PO SCH (09:32)
[2019-05-05] MEDS: AZITHROMYCIN 500 MG TAB PO SCH (09:32)
[2019-05-05] MEDS: DULoxetine HCL 30 MG CAPSULE.DR PO SCH ×3 (09:32→20:45)
[2019-05-05] MEDS: METOPROLOL SUCCINATE (ER) 50 MG TAB.ER.24H PO SCH (09:32)
[2019-05-05 11:47] LABS: Glucose,Whole Blood 180 mg/dL (75-99)
[2019-05-05] MEDS: LOSARTAN 50 MG TAB PO SCH (12:11)
--- NOTE | 2019-05-05 13:16 | P.PN ---
Subjective Patient is resting comfortably in bed. He looks a lot better today Denies any chest discomfort shortness of breath is better his cough is improving On examination his breath sounds are reduced bilaterally with some crackles at the bases but the area and tree has improved since yesterday and he has less crackles Heart sounds S1 and S2 are normal no murmurs or gallops or rub Abdomen is soft nontender No JVD Blood pressure 112/73 mmHg pulse rate is in the 80s, afebrile 97.7F Sodium 137, potassium 3.6, BUN 23, creatinine 1.08 Impression Severe cardiomyopathy Acute and chronic systolic heart failure Improving on diuretics Suggest Stop IV Lasix drip Switched to Lasix by mouth 80 mg twice daily Continue aspirin lactone Patient is on carvedilol and metoprolol Stop metoprolol Maximize carvedilol possibly to 12.5 g twice daily tomorrow Objective - Vital Signs Vital signs: Vital Signs Temp 97.7 F 05/05/19 11:44 Pulse 63 05/05/19 11:44 Resp 20 05/05/19 11:44 BP 112/73 05/05/19 11:44 Pulse Ox 99 05/05/19 11:44 Intake & Output 05/04/19 05/05/19 05/05/19 18:59 06:59 18:59 Intake Total 1252.167 400 360 Output Total 2100 300 Balance -847.833 100 360 Weight 86.2 kg Intake: IV 80 Furosemide 100 mg In 80 Sodium Chloride 0.9% 90 ml @ 10 MG/HR 10 mls/hr IV .Q10H [facility] Rx#: [id number] Intake, IV Titration 92.167 100 Amount Furosemide 100 mg In 92.167 100 Sodium Chloride 0.9% 90 ml @ 10 MG/HR 10 mls/hr IV .Q10H [facility] Rx#: [id number] Oral 1080 300 360 Output: Urine 2100 300 Other: Voiding Method Urinal Urinal Urinal # Voids 2 1 - Labs CBC & Chem 7: 05/05/19 06:46 05/05/19 06:46 Labs: Abnormal Lab Results - Last 24 Hours (Table) 05/04/19 05/04/19 05/04/19 Range/Units 06:24 17:10 20:30 Chloride (98-107) mmol/L BUN (9-20) mg/dL Glucose (74-99) mg/dL POC Glucose (mg/dL) 196 H 266 H (75-99) mg/dL Hemoglobin A1c 9.3 H (4.0-6.0) % 05/05/19 05/05/19 05/05/19 Range/Units 06:15 06:46 11:38 Chloride 96 L (98-107) mmol/L BUN 23 H (9-20) mg/dL Glucose 210 H (74-99) mg/dL POC Glucose (mg/dL) 216 H 180 H (75-99) mg/dL Hemoglobin A1c (4.0-6.0) %
[2019-05-05 13:35] VITALS: BMI 26.4
[2019-05-05] MEDS: ACETAMINOPHEN TAB 325 MG TAB PO PRN ×2 (14:51→20:50)
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
[2019-05-05] MEDS: FUROSEMIDE 80 MG TAB PO SCH (16:18)
[2019-05-05] MEDS: guaiFENesin 600 MG TABLET.ER PO PRN (16:18)
[2019-05-05 17:01] LABS: Glucose,Whole Blood 181 mg/dL (75-99)
[2019-05-05 20:13] LABS: Glucose,Whole Blood 203 mg/dL (75-99)
[2019-05-05] MEDS: INSULIN DETEMIR (LEVEMIR) 100 UNIT/ML SYR SQ SCH (20:45)
[2019-05-05] MEDS: ATORVASTATIN 80 MG TAB PO SCH (20:45)
[2019-05-05] MEDS: MAGNESIUM OXIDE 400 MG TAB PO SCH (20:45)
[2019-05-05 21:04] VITALS: RESP 18
[2019-05-06 06:18] LABS: Glucose,Whole Blood 210 mg/dL (75-99)
[2019-05-06] MEDS: CARVEDILOL 6.25 MG TAB PO SCH (06:45)
[2019-05-06] MEDS: glipiZIDE 5 MG TAB PO SCH ×2 (06:45→16:43)
[2019-05-06] MEDS: metFORMIN 500 MG TAB PO SCH ×2 (06:45→16:43)
[2019-05-06] MEDS: INSULIN ASPART (NovoLOG) 100 UNIT/ML VIAL SQ SCH ×2 (06:46→12:34)
[2019-05-06 06:47] LABS: Calcium 9.9 mg/dL (8.4-10.2); Magnesium 1.8 mg/dL (1.6-2.3); Potassium 3.7 mmol/L (3.5-5.1)
[2019-05-06] MEDS: guaiFENesin 600 MG TABLET.ER PO PRN (09:07)
[2019-05-06] MEDS: SPIRONOLACTONE 25 MG TAB PO SCH (09:07)
[2019-05-06] MEDS: HEPARIN SODIUM,PORCINE 5,000 UNIT/ML 1 ML VIAL SQ SCH ×2 (09:07→16:45)
[2019-05-06] MEDS: ASPIRIN 81 MG PO SCH (09:07)
[2019-05-06] MEDS: DULoxetine HCL 30 MG CAPSULE.DR PO SCH ×2 (09:07→16:43)
[2019-05-06] MEDS: NICOTINE 14MG/24HR PATCH TRANSDERM SCH (09:07)
[2019-05-06] MEDS: AZITHROMYCIN 500 MG TAB PO SCH (09:07)
[2019-05-06] MEDS: LOSARTAN 50 MG TAB PO SCH (09:07)
[2019-05-06] MEDS: FUROSEMIDE 80 MG TAB PO SCH ×2 (09:07→16:43)
[2019-05-06] MEDS: SYMBICORT 160-4.5 MCG INHALER INHALATION SCH (09:46)
[2019-05-06] MEDS: IPRATROPIUM-ALBUTEROL 3 ML NEB INHALATION PRN ×2 (09:46→15:42)
[2019-05-06 12:20] LABS: Glucose,Whole Blood 202 mg/dL (75-99)
[2019-05-06] MEDS: ACETAMINOPHEN TAB 325 MG TAB PO PRN (13:12)
[2019-05-06 14:42] VITALS: BP 125/85; TEMP 98.2
--- NOTE | 2019-05-06 15:01 | P.PN ---
Subjective Progress Note Date: 05/06/19 This is a 54-year-old male initially presented to the hospital due to shortness of breath progressing over the past 2 weeks along with shortness of breath with minimal exertion and increasing cough upon lying flat in bed. Patient currently states that he is feeling much better. He is complaining of muscle soreness from coughing but shortness of breath is back to baseline. He denies any lightheadedness and dizzy. No chest pain. Patient is cleared for discharge from cardiology Gen: This is a 54-year-old male. Patient is resting comfortably appears to be in no acute distress. HEENT: Head is atraumatic, normocephalic. Pupils equal, round. Sclerae is anicteric. NECK: Supple. No JVD. No lymphadenopathy. No thyromegaly. LUNGS: Clear to auscultation. No wheezes or rhonchi. No intercostal retractions. HEART: Regular rate and rhythm. No murmur. ABDOMEN: Soft. Bowel sounds are present. No masses. No tenderness. EXTREMITIES: No pedal edema. No calf tenderness. NEUROLOGICAL: Patient is awake, alert and oriented x3. Cranial nerves 2 through 12 are grossly intact. Assessment: Severe cardiomyopathy Acute on chronic systolic heart failure Plan: Continue Coreg 12.5 mg twice daily, Cozaar 51 g daily, Lasix 80 mg twice daily Follow-up with Dr. Moser in 1 week Nurse practitioner note has been reviewed, I agree with documented findings and plan of care. Patient was seen and examined. Objective - Vital Signs Vital signs: Vital Signs Temp 97.6 F 05/06/19 08:00 Pulse 76 05/06/19 09:57 Resp 18 05/06/19 08:00 BP 113/77 05/06/19 08:00 Pulse Ox 95 05/06/19 08:00 Intake & Output 05/05/19 05/06/19 05/06/19 18:59 06:59 18:59 Intake Total 940 Output Total 1350 450 Balance -410 -450 Weight 86.2 kg 86.3 kg Intake: Intake, IV Titration 100 Amount Furosemide 100 mg In 100 Sodium Chloride 0.9% 90 ml @ 10 MG/HR 10 mls/hr IV .Q10H [facility] Rx#: [id number] Oral 840 Output: Urine 1350 450 Other: Voiding Method Urinal Toilet Toilet # Voids 1 - Labs CBC & Chem 7: 05/05/19 06:46 05/06/19 06:19 Labs: Abnormal Lab Results - Last 24 Hours (Table) 05/05/19 05/05/19 05/05/19 Range/Units 11:38 16:56 20:11 Sodium (137-145) mmol/L Chloride (98-107) mmol/L Carbon Dioxide (22-30) mmol/L BUN (9-20) mg/dL Glucose (74-99) mg/dL POC Glucose (mg/dL) 180 H 181 H 203 H (75-99) mg/dL 05/06/19 05/06/19 Range/Units 05:58 06:19 Sodium 135 L (137-145) mmol/L Chloride 96 L (98-107) mmol/L Carbon Dioxide 31 H (22-30) mmol/L BUN 31 H (9-20) mg/dL Glucose 183 H (74-99) mg/dL POC Glucose (mg/dL) 210 H (75-99) mg/dL Microbiology - Last 24 Hours (Table) 05/03/19 19:57 Gram Stain - Final Sputum Sputum Culture - Final
[2019-05-06 15:52] VITALS: PULSE 82
[2019-05-06 17:05] LABS: Glucose,Whole Blood 170 mg/dL (75-99)
[2019-05-06] MEDS ORDERED: CARVEDILOL 12.5 MG TAB PO SCH (17:30)
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
== END 2019-05-06 17:27 | disposition home or self-care (01) | DRG 293 ==
LOC: EC 23:19 → 3SCARD 05-03 02:08
PROVIDERS: ADMIT Hospitalist; ATTEND Hospitalist
DX: I11.0 Hypertensive heart disease with heart failure (principal); I50.23 Acute on chronic systolic (congestive) heart failure; E11.65 Type 2 diabetes mellitus with hyperglycemia; E78.5 Hyperlipidemia, unspecified; F17.200 Nicotine dependence, unspecified, uncomplicated; F41.9 Anxiety disorder, unspecified; I25.10 Atherosclerotic heart disease of native coronary artery without angina pectoris; I25.2 Old myocardial infarction; I25.5 Ischemic cardiomyopathy; I45.10 Unspecified right bundle-branch block; J44.9 Chronic obstructive pulmonary disease, unspecified; F32.9 Major depressive disorder, single episode, unspecified; J20.9 Acute bronchitis, unspecified; R79.89 Other specified abnormal findings of blood chemistry; Z79.51 Long term (current) use of inhaled steroids; Z79.82 Long term (current) use of aspirin; Z79.84 Long term (current) use of oral hypoglycemic drugs; Z79.899 Other long term (current) drug therapy; Z86.73 Personal history of transient ischemic attack (TIA), and cerebral infarction without residual deficits; Z95.1 Presence of aortocoronary bypass graft; Z95.5 Presence of coronary angioplasty implant and graft; Z88.5 Allergy status to narcotic agent; Z88.0 Allergy status to penicillin; Z88.2 Allergy status to sulfonamides; Z91.048 Other nonmedicinal substance allergy status
CPT/HCPCS: 36415; 71046; 80048; 80053; 83036; 83735; 83880; 84484; 85025; 85027; 85610; 85730; 87040; 87070; 87205; 87502; 90686; 93005; 94640; 94760; 96365; 96366; 96372; 99285

== ENCOUNTER → 2020-07-25 | Outpatient (CLI) | payer OTHER ==
--- NOTE | 2020-07-25 10:21 | XR ---
EXAMINATION TYPE: XR calcaneus 2V LT DATE OF EXAM: 07/25/2020 COMPARISON: NONE HISTORY: Pain TECHNIQUE: 2 views submitted FINDINGS: There are calcaneal spurs extending off the plantar surface and Achilles insertion of the c alcaneus. Vascular calcification seen. Osseous structures intact. Visualized joint spaces maintained. IMPRESSION: Calcaneal spurs
--- NOTE | 2020-07-25 10:35 | XR ---
EXAMINATION TYPE: XR foot complete LT DATE OF EXAM: 07/25/2020 COMPARISON: NONE HISTORY: pain TECHNIQUE: Three views are submitted. FINDINGS: The osseous structures are intact. There is no acute fracture or dislocation. Mild to moderate art hropathy first MTP. Calcaneal spurs are noted and there are vascular calcifications. IMPRESSION: 1. First MTP joint arthropathy. 2. Calcaneal spurs.
== END | disposition home or self-care (01) ==
LOC: RADXRMAIN 09:22
PROVIDERS: ATTEND Family Medicine
DX: M77.32 Calcaneal spur, left foot (principal); M12.872 Other specific arthropathies, not elsewhere classified, left ankle and foot

== ENCOUNTER 2020-08-15 06:36 | Day surgery (SDC) | payer OTHER ==
[2020-08-14 11:58] VITALS: BMI 27.1
[~2020-08-15 06:36] MED LIST changes: +ACETAMINOPHEN TAB 500 MG TAB PO PRN; -CLINDAMYCIN 900 MG in DEXTROSE 5% IN WATER 50 ML IVPB ONE; -DEXAMETHASONE SOD PHOSPHATE 10 MG/ML 1 ML VIAL IV ONE; +DEXAMETHASONE SOD PHOSPHATE 4 MG/ML 1 ML VIAL IV ONE; -GENTAMICIN 400 MG in SODIUM CHLORIDE 0.9% 100 ML IVPB ONE; -HEPARIN SODIUM,PORCINE 5,000 UNIT/ML 1 ML VIAL SQ ONE; +HEPARIN SODIUM,PORCINE 5,000 UNIT/ML 1 ML VIAL SQ PRN; +LACTATED RINGERS 1,000 ML IV SCH; +LIDOCAINE 1% (10MG/ML) FOR IV START INTRADERMA PRN; +Pre Op ABX Message 1 EACH MISC MISCELLANE ONE; -SCOPOLAMINE 1.5MG/72HR PATCH TRANSDERM ONE; -fentaNYL (PF) 50 MCG/ML 2 ML AMP IV PRN
[2020-08-15 07:06] VITALS: TEMP 97.1
[2020-08-15 07:19] LABS: Glucose,Whole Blood 183 mg/dL (75-99)
[2020-08-15] MEDS ORDERED: BUPIVACAINE (PF) 0.25% 30 ML VIAL SQ ONE ×2 (07:31)
[2020-08-15] MEDS ORDERED: PROPOFOL 10 MG/ML 20 ML VIAL IV ONE (07:45)
[2020-08-15] MEDS ORDERED: KETAMINE 10 MG/ML 20 ML VIAL ONE (07:45)
[2020-08-15] MEDS ORDERED: SODIUM CHLORIDE 0.9% 100 ML with ceFAZolin 2,000 MG IV ONE ×2 (08:00)
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
[2020-08-15 08:27] VITALS: RESP 20
--- NOTE | 2020-08-15 08:28 | P.OP ---
Date of Procedure: 08/15/20 Preoperative Diagnosis: Right posterior neck skin lesion Postoperative Diagnosis: Right posterior neck skin lesion Procedure(s) Performed: Excision of right posterior neck skin lesion Anesthesia: MAC Surgeon: Jonh See Estimated Blood Loss (ml): 5 Pathology: other (Right neck skin lesion) Condition: stable Disposition: PACU Description of Procedure: Patient's placed on the operating table in the supine position. He received IV sedation. His neck was rotated laterally. The skin lesion was at the base of the right neck. In the posterior position. The area was anesthetized 1% local Xylocaine. Using a 15 blade elliptical skin incision was made. Using cautery and subcutaneous tissue divided. The specimens of pathology. The skin was closed interrupted 3-0 Monocryl suture. Dermabond was applied. Patient top she will was sent to recovery room in stable condition.
[2020-08-15 08:40] VITALS: BP 142/93; PULSE 50
--- NOTE | 2020-08-19 11:26 | CDI ---
Date: 08.19.20 CDS/Lap Winder Name: Demi Cheek Phone: If any questions, call Vaishali Whitten Butting Saw Operator at [phone] Patient Name: Damon Javed Admit Date 08.15.20 Discharge Date: 08.15.20 ATTENTION: The [facility] Coding Staff appreciate your assistance in clarifying documentation. Please respond to the clarification below the line at the bottom and electronically sign. The [facility] Coding staff will review the response and follow-up if needed. Please note: Queries are made part of the Legal Health Record. If you have any questions, please contact the Butting Saw Operator. Dear Dr. See In order to code to the greatest specificity and for the greatest reimbursement I need the following information: Please specify the diameter of the lesion/cyst excised from the patients neck __ 0.5 cm or less __ 0.6 to 1.0 cm __ 1.1 to 2.0 cm __ 2.1 to 3.0 cm __ 3.1 to 4.0 cm __OVER 4.0 cm Thank you for your kind consideration. Over 4 cm MTDD
--- NOTE | 2020-08-19 11:57 | CDI ---
Date: 08.19.20 CDS/Can Filling Machine Operator Name: Demi Cheek Phone: If any questions, call Vaishali Whitten Supervisor [employer] at [phone] Patient Name: Damon Javed Admit Date 08.15.20 Discharge Date: 08.15.20 ATTENTION: The [facility] Coding Staff appreciate your assistance in clarifying documentation. Please respond to the clarification below the line at the bottom and electronically sign. The [facility] Coding staff will review the response and follow-up if needed. Please note: Queries are made part of the Legal Health Record. If you have any questions, please contact the Supervisor [employer]. Dear Dr. Starr In order to code to the greatest specificity and for the greatest reimbursement I need the following information: In the findings section of the [facility] note you have documented mild tricuspid regurgitation and mild pulmonic insufficiency seen. Then in the conclusion you documented normal tricuspid valve and pulmonic valve. Please clarify. Thank you for your kind consideration. MTDD
== END 2020-08-15 09:04 | disposition home or self-care (01) ==
LOC: OR 06:36
PROVIDERS: ATTEND Surgery
DX: L72.9 Follicular cyst of the skin and subcutaneous tissue, unspecified (principal); L08.9 Local infection of the skin and subcutaneous tissue, unspecified; I25.10 Atherosclerotic heart disease of native coronary artery without angina pectoris; I11.0 Hypertensive heart disease with heart failure; I50.9 Heart failure, unspecified; E11.9 Type 2 diabetes mellitus without complications; E78.5 Hyperlipidemia, unspecified; I25.2 Old myocardial infarction; I49.9 Cardiac arrhythmia, unspecified; F17.200 Nicotine dependence, unspecified, uncomplicated; F41.9 Anxiety disorder, unspecified; F31.9 Bipolar disorder, unspecified; Z86.73 Personal history of transient ischemic attack (TIA), and cerebral infarction without residual deficits; Z87.81 Personal history of (healed) traumatic fracture; Z87.828 Personal history of other (healed) physical injury and trauma; Z98.890 Other specified postprocedural states; Z95.1 Presence of aortocoronary bypass graft; Z95.5 Presence of coronary angioplasty implant and graft; Z88.5 Allergy status to narcotic agent; Z79.899 Other long term (current) drug therapy; Z79.82 Long term (current) use of aspirin; Z79.84 Long term (current) use of oral hypoglycemic drugs; Z79.51 Long term (current) use of inhaled steroids; Z91.09 Other allergy status, other than to drugs and biological substances; Z88.0 Allergy status to penicillin; Z88.2 Allergy status to sulfonamides; Z91.048 Other nonmedicinal substance allergy status; Z88.8 Allergy status to other drugs, medicaments and biological substances
CPT/HCPCS: 11426; 88304; J1644; J1100; J2405; J0690; J2704

== ENCOUNTER 2021-04-18 12:56 | Emergency (ER) | payer OTHER ==
[2021-04-18] MEDS ORDERED: DEXAMETHASONE SOD PHOSPHATE 10 MG/ML 1 ML VIAL IV STA (18:58)
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
--- NOTE | 2021-04-18 19:31 | XR ---
EXAMINATION TYPE: XR chest 2V DATE OF EXAM: 04/18/2021 COMPARISON: Multiple prior chest radiographs. HISTORY: Cough TECHNIQUE: Frontal and lateral views of the chest are obtained. FINDINGS: Strandy opacity at the left costophrenic angle.There is no focal consolidation, pleural ef fusion, or pneumothorax seen. The cardiac silhouette size is within normal limits. The osseous str uctures are intact. Median sternotomy wires. CABG changes. IMPRESSION: Strandy atelectasis at the left base without an acute process.
--- NOTE | 2021-04-18 19:51 | CT ---
EXAMINATION TYPE: CT brain wo con DATE OF EXAM: 04/18/2021 COMPARISON: CT and 08/22/2013 HISTORY: Dizziness. CT DLP: 1102.4 mGycm Automated exposure control for dose reduction was used. FINDINGS: Encephalomalacia is of the medial left occipital lobe consistent with an old infarct, the gallego-white distinction is otherwise maintained. No acute intracranial hemorrhage, acute large vessel territory i nfarct, mass, mass effect or midline shift. No hydrocephalus. The subarachnoid basal cisterns and cerebral sulci are not effaced. No osseous abnormality. The vi sualized paranasal sinuses and air cells are well-developed and pneumatized. The globes and orbits ar e within normal limits. Intracranial atherosclerosis. IMPRESSION: OLD LEFT OCCIPITAL INFARCT WITHOUT AN ACUTE INTRACRANIAL PROCESS.
[2021-04-18 20:04] LABS: Basophils # (A) 0.1 k/uL (0-0.2); Basophils % (A) 1 %; Eosinophils # (A) 0.1 k/uL (0-0.7); Eosinophils % (A) 2 %; HCT 38.5 % (39.0-53.0); HGB 12.8 gm/dL (13.0-17.5); Lymphocytes # (A) 1.5 k/uL (1.0-4.8); Lymphocytes % (A) 21 %; MCH 29.6 pg (25.0-35.0); MCHC 33.3 g/dL (31.0-37.0); MCV 88.9 fL (80.0-100.0); Mean Platelet Volume 8.1; Monocytes # (A) 0.6 k/uL (0-1.0); Monocytes % (A) 8 %; Neutrophils # (A) 4.9 k/uL (1.3-7.7); Neutrophils % (A) 66 %; Platelet Count 451 k/uL (150-450); RBC 4.33 m/uL (4.30-5.90); RDW 13.9 % (11.5-15.5); WBC 7.4 k/uL (3.8-10.6)
[2021-04-18 20:21] LABS: ALT 61 U/L (4-49); AST 112 U/L (17-59); African American GFR (CKD) >90 (>60 ml/min/1.73 sqM); Albumin 3.5 g/dL (3.5-5.0); Alkaline Phosphatase 812 U/L (38-126); Anion Gap 9 mmol/L; Blood Urea Nitrogen 11 mg/dL (9-20); Calcium 9.3 mg/dL (8.4-10.2); Carbon Dioxide 26 mmol/L (22-30); Chloride 96 mmol/L (98-107); Glucose 290 mg/dL (74-99); Magnesium 1.7 mg/dL (1.6-2.3); Non-African American GFR(CKD) 79 (>60 ml/min/1.73 sqM); Potassium 4.5 mmol/L (3.5-5.1); Sodium 131 mmol/L (137-145); Total Bilirubin 0.8 mg/dL (0.2-1.3)
[2021-04-18] MEDS ORDERED: AZITHROMYCIN 500 MG TAB PO STA (21:16)
[2021-04-18 21:29] VITALS: BP 156/68; PULSE 77; RESP 20
[2021-04-18 21:40] VITALS: TEMP 98.9
== END 2021-04-18 21:30 | disposition home or self-care (01) ==
LOC: EC 12:56
DX: J20.9 Acute bronchitis, unspecified (principal); E11.9 Type 2 diabetes mellitus without complications; I11.0 Hypertensive heart disease with heart failure; I50.9 Heart failure, unspecified; I25.10 Atherosclerotic heart disease of native coronary artery without angina pectoris; I25.2 Old myocardial infarction; E78.5 Hyperlipidemia, unspecified; F31.9 Bipolar disorder, unspecified; F41.9 Anxiety disorder, unspecified; F17.210 Nicotine dependence, cigarettes, uncomplicated; Z79.51 Long term (current) use of inhaled steroids; Z79.52 Long term (current) use of systemic steroids; Z79.82 Long term (current) use of aspirin; Z79.84 Long term (current) use of oral hypoglycemic drugs; Z79.899 Other long term (current) drug therapy; Z88.0 Allergy status to penicillin; Z88.2 Allergy status to sulfonamides; Z88.5 Allergy status to narcotic agent; Z95.1 Presence of aortocoronary bypass graft; Z86.73 Personal history of transient ischemic attack (TIA), and cerebral infarction without residual deficits
CPT/HCPCS: 36415; 93005; 80053; 83735; 84484; 85025; 71046; 70450; 99285; 96374; J1100

== ENCOUNTER 2021-05-07 17:31 | Inpatient (IN) | payer OTHER ==
[2021-05-07] MEDS ORDERED: SODIUM CHLORIDE 0.9% 500 ML 500 ML IV STA (20:04)
[2021-05-07 21:00] LABS: Basophils # (A) 0.1 k/uL (0-0.2); Basophils % (A) 1 %; Eosinophils # (A) 0.2 k/uL (0-0.7); Eosinophils % (A) 1 %; HCT 39.8 % (39.0-53.0); HGB 12.9 gm/dL (13.0-17.5); Lymphocytes # (A) 1.3 k/uL (1.0-4.8); Lymphocytes % (A) 11 %; MCHC 32.4 g/dL (31.0-37.0); MCV 86.5 fL (80.0-100.0); Mean Platelet Volume 8.3; Monocytes # (A) 0.7 k/uL (0-1.0); Monocytes % (A) 6 %; Neutrophils # (A) 9.1 k/uL (1.3-7.7); Neutrophils % (A) 79 %; Platelet Count 384 k/uL (150-450); RDW 14.3 % (11.5-15.5); WBC 11.5 k/uL (3.8-10.6)
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
--- NOTE | 2021-05-07 21:06 | XR ---
EXAMINATION TYPE: XR chest 2V DATE OF EXAM: 05/07/2021 COMPARISON: 04/18/2021 HISTORY: Chest pain TECHNIQUE: FINDINGS: Heart is borderline enlarged. There is no heart failure. Lungs are clear of infiltrate. The re are sternal wires. Costophrenic angles are clear. IMPRESSION: Borderline cardiomegaly. Heart appears increased slightly compared to old exam. No heart failure seen.
[2021-05-07 21:12] LABS: Albumin 3.8 g/dL (3.5-5.0); Calcium 9.9 mg/dL (8.4-10.2); Potassium 4.6 mmol/L (3.5-5.1); Total Protein 7.8 g/dL (6.3-8.2)
[2021-05-07] MEDS ORDERED: SODIUM CHLORIDE 0.9% 1,000 ML IV ONE (21:41)
--- NOTE | 2021-05-07 22:28 | CT ---
EXAMINATION TYPE: CT abdomen pelvis wo con DATE OF EXAM: 05/07/2021 COMPARISON: 07/04/2012 HISTORY: Right upper quadrant pain, elevated lipase. CT DLP: 682.9 mGycm Automated exposure control for dose reduction was used. Images obtained from the diaphragm to the floor the pelvis without contrast. Lung bases are clear. There is no pleural effusion. Heart size is fairly normal. There is no pericard ial effusion. There is heterogeneous density in the liver. There is enlargement of the caudate lobe of the liver th at measures 12 cm. There is probably multiple low density masses throughout the liver. Spleen is inta ct. Stomach is intact. There is no pancreatic mass. There is no adrenal mass. Kidneys have normal size. There is no hydronephrosis. Ureters are not dilat ed. There is no retroperitoneal adenopathy. Appendix is posterior and appears normal. Bladder distend s smoothly. There is some mild abdominal ascites fluid in the pelvis. There is no mesenteric edema. There is no free air. There is no sign of a bowel obstruction. Lumbar vertebra have fairly normal alignment. There is no compression fracture. Posterior elements ar e intact. Bony pelvis is intact. Hip joints are intact. IMPRESSION: Enlarged liver measuring 23 cm with multiple hypodense areas suspicious for diffuse metastatic diseas e. Large mass involving the caudate lobe could be primary liver tumor. Liver abnormality appears new compared to old exam..
[2021-05-07] MEDS ORDERED: NICOTINE 21MG/24HR PATCH TRANSDERM STA (22:50)
[2021-05-07] MEDS ORDERED: NALOXONE 0.4 MG/ML 1 ML VIAL IV PRN (23:14)
[2021-05-07] MEDS ORDERED: SODIUM CHLORIDE 0.9% 1,000 ML IV SCH (23:15)
[2021-05-08 01:40] LABS: Amorphous Sediment,Urine Rare /hpf; Appearance,Urine Turbid (Clear); Bacteria,Urine Rare /hpf; Bilirubin,Urine Negative (Negative); Blood,Urine Small (Negative); Color,Urine Yellow; Glucose,Urine (UA) 3+ (Negative); Ketones,Urine Negative (Negative); Leukocyte Esterase,Urine Negative (Negative); Nitrite,Urine Negative (Negative); PH, Urine 5.5 (5.0-8.0); Protein,Urine 1+ (Negative); RBC,Urine 5 /hpf (0-5); Specific Gravity,Urine 1.006 (1.001-1.035); Squamous Epithelial Cell,Urine 1 /hpf (0-4); Urobilinogen,Urine <2.0 mg/dL (<2.0); WBC,Urine 11 /hpf (0-5)
[2021-05-08] MEDS ORDERED: diphenhydrAMINE 50 MG/ML 1 ML VIAL IVP STA (03:43)
[2021-05-08 08:10] LABS: African American GFR (CKD) 9 (>60 ml/min/1.73 sqM); Anion Gap 14 mmol/L; Blood Urea Nitrogen 60 mg/dL (9-20); Calcium 9.1 mg/dL (8.4-10.2); Carbon Dioxide 18 mmol/L (22-30); Chloride 92 mmol/L (98-107); Glucose 82 mg/dL (74-99); Magnesium 2.1 mg/dL (1.6-2.3); Non-African American GFR(CKD) 7 (>60 ml/min/1.73 sqM); Potassium 4.5 mmol/L (3.5-5.1); Sodium 124 mmol/L (137-145)
[2021-05-08] MEDS ORDERED: ALBUTEROL NEBULIZED 2.5 MG/3 ML INHALATION PRN (09:02)
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
[2021-05-08] MEDS ORDERED: FUROSEMIDE 10 MG/ML 10 ML VIAL IV STA (11:08)
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
[2021-05-08 11:54] LABS: INR 0.9 (<1.2)
[2021-05-08 12:47] LABS: Glucose,Whole Blood 102 mg/dL (75-99)
[2021-05-08] MEDS: NICOTINE 21MG/24HR PATCH TRANSDERM SCH (13:15)
[2021-05-08] MEDS: INSULIN ASPART (NovoLOG) 100 UNIT/ML VIAL SQ SCH ×3 (13:20→20:59)
--- NOTE | 2021-05-08 14:46 | US ---
EXAMINATION TYPE: US abdomen complete DATE OF EXAM: 05/08/2021 COMPARISON: CT dated 05/07/2021 CLINICAL HISTORY: marcio. Nausea and dizziness; gallbladder removed, liver mass per CT EXAM MEASUREMENTS: Liver Length: 21.0 cm Gallbladder Wall: surgically removed CBD: 0.3 cm Spleen: 12.4 cm Right Kidney: 10.4 x 5.4 x 4.8 cm Left Kidney: 11.4 x 5.5 x 6.2 cm Pancreas: hyperechoic, tail obscured by overlying bowel gas Liver: abnormally enlarged, heterogeneous appearance with lobular borders, enlarged caudate lobe; mu ltiple liver masses are noted as both hyperechoic and hypoechoic heterogeneous masses. Gallbladder: wnl Evidence for sonographic Lovell's sign: tender at liver CBD: wnl Portal Vein: possible tumor thrombus within as hyperechoic wall masses are noted within portal vein o n images #[id number] 47, 48, 49 and 50 Spleen: wnl Right Kidney: No hydronephrosis or masses seen , and the right renal cortex is somewhat increased in echogenicity suggesting possible medical renal disease Left Kidney: No hydronephrosis or masses seen Upper IVC: wnl Abd Aorta: ectatic appearance to proximal and mid aorta; distal aorta obscured by overlying bowel ga s IMPRESSION: Findings suggest metastatic disease to the liver, there may be hepatoma with portal vein thrombosis, and there is hepatomegaly, medical renal disease
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
[2021-05-08] MEDS: DULoxetine HCL 30 MG CAPSULE.DR PO SCH ×2 (16:37→21:54)
--- NOTE | 2021-05-08 16:39 | ECHOF ---
Referral Reason:CHF MEASUREMENTS -------- HEIGHT: 182.9 cm WEIGHT: 86.2 kg BP: 134/67 RVIDd: 3.5 cm (< 3.3) IVSd: 1.5 cm (0.6 - 1.1) LVIDd: 5.7 cm (3.9 - 5.3) LVPWd: 1.5 cm (0.6 - 1.1) IVSs: 1.6 cm LVIDs: 4.7 cm LVPWs: 2.1 cm LAESV Index (A-L): 43.00 ml/m Ao Diam: 4.0 cm (2.0 - 3.7) AV Cusp: 1.8 cm (1.5 - 2.6) MV EXCURSION: 23.784 mm (> 18.000) MV EF SLOPE: 396 mm/s (70 - 150) EPSS: 1.3 cm MV E Sedrick: 0.66 m/s MV DecT: 234 ms MV A Sedrick: 1.27 m/s MV E/A Ratio: 0.52 RAP: 5.00 mmHg RVSP: 19.60 mmHg FINDINGS -------- Sinus rhythm. This was a technically difficult study with suboptimal apical views. The left ventricular size is normal. There is moderate concentric left ventricular hypertrophy. O verall left ventricular systolic function is severely impaired with, an EF between 25 - 30 %. Guera l Doppler inflow pattern suggests diastolic filling abnormality 10.68. Septal wall motion is delaye d and consistent with prior cardiac surgery. Global hypokinesis The right ventricle is mildly enlarged. LA is severely dilated >40 ml/m2 The right atrium was not well visualized. 5.0mg of Lumason was utilized for enhancement of images Interatrial and interventricular septum intact. The aortic valve is trileaflet and appears structurally normal. There is no evidence of aortic regu rgitation. There is no evidence of aortic stenosis. There is trace to mild mitral regurgitation. Mild tricuspid regurgitation present. There is no evidence of pulmonary hypertension. The right v entricular systolic pressure, as measured by Doppler, is 19.60mmHg. There is no pulmonic regurgitation present. The aortic root size is normal. IVC Not well visulized. There is no pericardial effusion. CONCLUSIONS -------- 1. Sinus rhythm. 2. The left ventricular size is normal. 3. There is moderate concentric left ventricular hypertrophy. 4. Overall left ventricular systolic function is severely impaired with, an EF between 25 - 30 %. 5. Mitral Doppler inflow pattern suggest diastolic filling abnormality 10.68. 6. Septal wall motion is delayed and consistent with prior cardiac surgery. 7. Global hypokinesis 8. The right ventricle is mildly enlarged. 9. LA is severely dilated >40 ml/m2 10. There is trace to mild mitral regurgitation. 11. Mild tricuspid regurgitation present. AIR TECHNICIAN: Karla Rose RDCS
[2021-05-08 17:15] LABS: Glucose,Whole Blood 88 mg/dL (75-99)
[2021-05-08] MEDS: carvediloL 12.5 MG TAB PO SCH (17:47)
[2021-05-08 20:15] LABS: Glucose,Whole Blood 121 mg/dL (75-99)
[2021-05-08] MEDS: BACLOFEN 10 MG TAB PO SCH (21:53)
[2021-05-09 00:12] LABS: Creatinine,Urine Random 16.6 mg/dL; Protein/Creatinine Ratio,Urine 2.831
[2021-05-09] MEDS: ATORVASTATIN 80 MG TAB PO SCH ×2 (02:37→20:22)
[2021-05-09] MEDS ORDERED: ACETAMINOPHEN TAB 325 MG TAB PO STA (03:05)
[2021-05-09] MEDS: LEVOTHYROXINE 25 MCG TAB PO SCH (05:34)
[2021-05-09] MEDS: NICOTINE 21MG/24HR PATCH TRANSDERM SCH (07:22)
[2021-05-09 07:39] LABS: Glucose,Whole Blood 69 mg/dL (75-99)
[2021-05-09] MEDS: INSULIN ASPART (NovoLOG) 100 UNIT/ML VIAL SQ SCH ×4 (07:41→22:28)
[2021-05-09 07:57] LABS: Glucose,Whole Blood 74 mg/dL (75-99)
[2021-05-09 08:39] LABS: ALT 73 U/L (4-49); AST 169 U/L (17-59); African American GFR (CKD) 7 (>60 ml/min/1.73 sqM); Albumin 2.8 g/dL (3.5-5.0); Albumin/Globulin Ratio 0.8; Alkaline Phosphatase 1411 U/L (38-126); Anion Gap 15 mmol/L; Blood Urea Nitrogen 70 mg/dL (9-20); Calcium 8.8 mg/dL (8.4-10.2); Carbon Dioxide 17 mmol/L (22-30); Chloride 93 mmol/L (98-107); Globulin 3.4 g/dL; Glucose 76 mg/dL (74-99); Magnesium 2.2 mg/dL (1.6-2.3); Non-African American GFR(CKD) 6 (>60 ml/min/1.73 sqM); Potassium 4.5 mmol/L (3.5-5.1); Sodium 125 mmol/L (137-145); Total Bilirubin 2.6 mg/dL (0.2-1.3); Total Protein 6.2 g/dL (6.3-8.2)
[2021-05-09] MEDS: carvediloL 12.5 MG TAB PO SCH ×2 (08:58→22:28)
[2021-05-09] MEDS: DULoxetine HCL 30 MG CAPSULE.DR PO SCH (08:59)
[2021-05-09] MEDS ORDERED: ASPIRIN 81 MG PO SCH (09:00)
[2021-05-09 09:48] LABS: HCT 30.2 % (39.6-50.0); HGB 10.2 g/dL (13.0-17.0); MCH 27.4 pg (27.0-32.0); MCHC 33.8 g/dL (32.0-37.0); MCV 81.2 fL (80.0-97.0); Mean Platelet Volume 10.5 fL (9.5-12.2); Platelet Count 276 X 10*3/uL (140-440); RBC 3.72 X 10*6/uL (4.40-5.60); RDW 15.4 % (11.5-14.5); WBC 8.34 X 10*3/uL (4.50-10.00)
--- NOTE | 2021-05-09 11:18 | P.PN ---
Subjective Patient is seen in follow-up for acute kidney injury. Renal function continues to worsen despite IV fluids. He also received IV Lasix yesterday with no improvement in his renal function. He has been voiding. Sodium remains low. He is also acidotic. Denies chest pain or shortness of breath. Oral intake is good. Denies vomiting or diarrhea. Vital signs are stable. General: The patient appeared well nourished and normally developed. HEENT: Head exam is unremarkable. LUNGS: Breath sounds decreased. HEART: Rate and Rhythm are regular. ABDOMEN: Soft, mild distention. EXTREMITITES: No edema. Objective - Vital Signs Vital signs: Vital Signs Temp 97.3 F L 05/09/21 07:28 Pulse 64 05/09/21 08:56 Resp 20 05/09/21 08:00 BP 123/66 05/09/21 07:28 Pulse Ox 96 05/09/21 07:28 Intake & Output 05/08/21 05/09/21 05/09/21 18:59 06:59 18:59 Intake Total 1088 436 Output Total 325 200 350 Balance 763 -200 86 Weight 86.183 kg Intake: Intake, IV Titration 650 Amount Sodium Chloride 0.9% 1, 650 000 ml @ 75 mls/hr IV . [id number] MARIELENA Rx#:[id number] Oral 438 436 Output: Urine 225 200 350 Other 100 Other: Voiding Method External Catheter External Catheter Urinal # Voids 2 # Bowel Movements 2 - Labs CBC & Chem 7: 05/09/21 04:58 05/09/21 04:58 Labs: Abnormal Lab Results - Last 24 Hours (Table) 05/08/21 05/08/21 05/08/21 Range/Units 07:25 07:25 12:45 RBC (4.40-5.60) X 10*6/uL Hgb (13.0-17.0) g/dL Hct (39.6-50.0) % RDW (11.5-14.5) % Sodium (137-145) mmol/L Chloride (98-107) mmol/L Carbon Dioxide (22-30) mmol/L BUN (9-20) mg/dL Creatinine (0.66-1.25) mg/dL POC Glucose (mg/dL) 102 H (75-99) mg/dL Osmolality 278 L (280-301) mosm/kg Total Bilirubin (0.2-1.3) mg/dL AST (17-59) U/L ALT (4-49) U/L Alkaline Phosphatase (38-126) U/L Total Protein (6.3-8.2) g/dL Total Protein (PEP) 6.0 L (6.2-8.2) g/dL Albumin (3.5-5.0) g/dL 05/08/21 05/09/21 05/09/21 Range/Units 20:14 04:58 04:58 RBC 3.72 L (4.40-5.60) X 10*6/uL Hgb 10.2 L (13.0-17.0) g/dL Hct 30.2 L (39.6-50.0) % RDW 15.4 H (11.5-14.5) % Sodium 125 L (137-145) mmol/L Chloride 93 L (98-107) mmol/L Carbon Dioxide 17 L (22-30) mmol/L BUN 70 H (9-20) mg/dL Creatinine 8.75 H* (0.66-1.25) mg/dL POC Glucose (mg/dL) 121 H (75-99) mg/dL Osmolality (280-301) mosm/kg Total Bilirubin 2.6 H (0.2-1.3) mg/dL AST 169 H (17-59) U/L ALT 73 H (4-49) U/L Alkaline Phosphatase 1411 H (38-126) U/L Total Protein 6.2 L (6.3-8.2) g/dL Total Protein (PEP) (6.2-8.2) g/dL Albumin 2.8 L (3.5-5.0) g/dL 05/09/21 05/09/21 Range/Units 07:38 07:55 RBC (4.40-5.60) X 10*6/uL Hgb (13.0-17.0) g/dL Hct (39.6-50.0) % RDW (11.5-14.5) % Sodium (137-145) mmol/L Chloride (98-107) mmol/L Carbon Dioxide (22-30) mmol/L BUN (9-20) mg/dL Creatinine (0.66-1.25) mg/dL POC Glucose (mg/dL) 69 L 74 L (75-99) mg/dL Osmolality (280-301) mosm/kg Total Bilirubin (0.2-1.3) mg/dL AST (17-59) U/L ALT (4-49) U/L Alkaline Phosphatase (38-126) U/L Total Protein (6.3-8.2) g/dL Total Protein (PEP) (6.2-8.2) g/dL Albumin (3.5-5.0) g/dL Microbiology - Last 24 Hours (Table) 05/08/21 01:21 Urine Culture - Preliminary Urine,Voided Assessment and Plan Plan: Assessment: 1. Acute kidney injury secondary to ATN. No evidence of urinary retention. Baseline creatinine near 1 and is up to 8.75 today. UPC 2.8g - r/o GN - ?membranous from malignancy. 2. Liver lesions concerning for metastatic disease. Surgery and oncology following. 3. Hyponatremia secondary to acute kidney injury. 4. Metabolic acidosis secondary to acute kidney injury. 5. Diabetes mellitus. 6. Chronic systolic CHF with ejection fraction of 25-30%. 7. Mild ascites. Plan: Remains off IV fluids. Oral intake is good. 1500 mL fluid restriction. Encourage oral intake. Avoid nephrotoxins. Follow-up serologies. Status post 80 mg IV Lasix given in May 08. Due to worsening renal function, acidosis, initiate renal replacement therapy. Plan for first and if hemodialysis today and second treatment tomorrow. Patient is being considered for liver biopsy. Depending on serologies, kidney biopsy may also be required for definitive d iagnosis of his kidney failure. Continue to monitor urine output. Monitor for renal recovery. Patient is agreeable to the above plan.
[2021-05-09 11:25] LABS: Magnesium 2.3 mg/dL (1.5-2.4)
[2021-05-09 11:26] LABS: Anti-DNA, DS unit <1.0 IU/mL; DNA Double-Stranded NEGATIVE (NEGATIVE)
[2021-05-09 11:30] LABS: ALT 73 U/L (10-49); AST 181 U/L (14-35); African American GFR (CKD) 7.1 (60.0-200.0); Albumin 2.8 g/dL (3.8-4.9); Albumin/Globulin Ratio 0.88 (1.60-3.17); BUN/Creat Ratio 8.06 Ratio (12.00-20.00); Blood Urea Nitrogen 69.3 mg/dL (9.0-27.0); Calcium 8.7 mg/dL (8.7-10.3); Carbon Dioxide 16.6 mmol/L (21.6-31.8); Chloride 89 mmol/L (96-109); Globulin 3.2 g/dL (1.6-3.3); Glucose 71 mg/dL (70-110); Non-African American GFR(CKD) 6.2 (60.0-200.0); Potassium 4.5 mmol/L (3.5-5.5); Sodium 124 mmol/L (135-145)
[2021-05-09 11:49] LABS: Hepatitis A Antibody IgM Nonreactive (Nonreactive); Hepatitis B Core IgM Nonreactive (Nonreactive); Hepatitis B Surface Antigen Nonreactive (Nonreactive); Hepatitis C IgG Antibody Nonreactive (Nonreactive)
[2021-05-09 12:12] LABS: Glucose,Whole Blood 124 mg/dL (75-99)
--- NOTE | 2021-05-09 12:35 | P.PN ---
Subjective Progress Note Date: 05/09/21 56-year-old the male came in with compensative right upper quadrant abdominal pain moderate severity sharp in nature and radiating all over the abdomen patient had a CT of the abdomen which showed multiple lesions at and as per the radiologist reading metastatic disease need to be ruled out I reviewed the computed tomography scan images looked more like cirrhosis. Patient also found to be in acute renal failure with a serum creatinine going up to around 7.39 baseline is around 1. Patient does have history of congestive heart failure ejection fraction of around 20% ischemic cardiomyopathy presently not in acute exacerbation patient doesn't have any short of breath or JVD chest x-ray did not show any pulmonary edema, patient does take a low-dose of Lasix and DIAMOND inhibitor because of his heart failure history. Patient is coming of some flulike symptoms but doesn't have any fever. Covid 19 was negative. Patient was evaluated for defibrillator in the past, and was scheduled to get a outpatient. 05/09/2021 Patient is evaluated today sitting in the bed. He does complain of 8 out of 10 right upper quadrant pain that is nonradiating. This has been ongoing for the last couple weeks. Denies any nausea vomiting. He does report some loose stools, negative for blood. Interventional radiology consultation for a liver biopsy. Labs included hemoglobin of 10.2, sodium of 125, potassium 4.5, BUN 70, creatinine 8.75. Glucose is in the 70s. AST and ALT are elevated. His BNP is 12,200. Covid is negative, hepatitis panel is negative. Blood pressure is 123/66. Pt is afebrile. Repeat echo shows an EF of 25-30%. ROS Constitutional: Denied any fatigue denied any fever. Cardio vascular: denied any chest pain, palpitations Gastrointestinal denied any nausea vomiting, reports loose stools, reports abdominal pain Pulmonary: Denied any shortness of breath cough Neurologic denied any new focal deficits All inpatient medications were reviewed and appropriate changes in these medications as dictated in the interval history and assessment and plan. PHYSICAL EXAMINATION: GENERAL: The patient is alert and oriented x3, not in any acute distress. Well developed, well nourished. HEENT: Pupils are round and equally reacting to light. EOMI. No scleral icterus. No conjunctival pallor. Normocephalic, atraumatic. No pharyngeal erythema. No thyromegaly. CARDIOVASCULAR: S1 and S2 present. No murmurs, rubs, or gallops. PULMONARY: Chest is clear to auscultation, no wheezing or crackles. ABDOMEN: Soft, nontender, distended significant hepatomegaly and no significant splenomegaly MUSCULOSKELETAL: No joint swelling or deformity. EXTREMITIES: No cyanosis, clubbing, or pedal edema. NEUROLOGICAL: Gross neurological examination did not reveal any focal deficits. SKIN: No rashes. Assessment and plan -Multiple lesions in the liver mostly appears to be cirrhosis rather than metastatic liver disease, liver biopsy ordered, oncology consult, pt cannot get an MRI with contrast because of his extremely low GFR of 9. -Abdominal pain secondary to enlarged liver -Acute renal failure: Prerenal ischemia may be related to diuretic therapy and lisinopril which are being held at this time -Congestive heart failure chronic systolic dysfunction with EF of around the 20%, not in acute exacerbation clinically but does have elevated BNP -Hypothyroidism -diabetic disorders long-acting insulin will be held and patient will be on sliding scale insulin - coronary artery disease DVT prophylaxis: We'll be started after biopsy Hold lisinopril, diuretics, okay to continue on beta catalino Objective - Vital Signs Vital signs: Vital Signs Temp 97.3 F L 05/09/21 07:28 Pulse 64 05/09/21 08:56 Resp 20 05/09/21 08:00 BP 123/66 05/09/21 07:28 Pulse Ox 96 05/09/21 07:28 Intake & Output 05/08/21 05/09/21 05/09/21 18:59 06:59 18:59 Intake Total 1088 436 Output Total 325 200 350 Balance 763 -200 86 Weight 86.183 kg Intake: Intake, IV Titration 650 Amount Sodium Chloride 0.9% 1, 650 000 ml @ 75 mls/hr IV . [id number] MARIELENA Rx#:[id number] Oral 438 436 Output: Urine 225 200 350 Other 100 Other: Voiding Method External Catheter External Catheter Urinal # Voids 2 # Bowel Movements 2 - Labs CBC & Chem 7: 05/09/21 04:58 05/09/21 04:58 Labs: Abnormal Lab Results - Last 24 Hours (Table) 05/08/21 05/08/21 05/08/21 Range/Units 07:25 07:25 12:45 RBC (4.40-5.60) X 10*6/uL Hgb (13.0-17.0) g/dL Hct (39.6-50.0) % RDW (11.5-14.5) % Sodium (137-145) mmol/L Chloride (98-107) mmol/L Carbon Dioxide (22-30) mmol/L BUN (9-20) mg/dL Creatinine (0.66-1.25) mg/dL POC Glucose (mg/dL) 102 H (75-99) mg/dL Osmolality 278 L (280-301) mosm/kg Total Bilirubin (0.2-1.3) mg/dL AST (17-59) U/L ALT (4-49) U/L Alkaline Phosphatase (38-126) U/L Total Protein (6.3-8.2) g/dL Total Protein (PEP) 6.0 L (6.2-8.2) g/dL Albumin (3.5-5.0) g/dL 05/08/21 05/09/21 05/09/21 Range/Units 20:14 04:58 04:58 RBC 3.72 L (4.40-5.60) X 10*6/uL Hgb 10.2 L (13.0-17.0) g/dL Hct 30.2 L (39.6-50.0) % RDW 15.4 H (11.5-14.5) % Sodium 125 L (137-145) mmol/L Chloride 93 L (98-107) mmol/L Carbon Dioxide 17 L (22-30) mmol/L BUN 70 H (9-20) mg/dL Creatinine 8.75 H* (0.66-1.25) mg/dL POC Glucose (mg/dL) 121 H (75-99) mg/dL Osmolality (280-301) mosm/kg Total Bilirubin 2.6 H (0.2-1.3) mg/dL AST 169 H (17-59) U/L ALT 73 H (4-49) U/L Alkaline Phosphatase 1411 H (38-126) U/L Total Protein 6.2 L (6.3-8.2) g/dL Total Protein (PEP) (6.2-8.2) g/dL Albumin 2.8 L (3.5-5.0) g/dL 05/09/21 05/09/21 Range/Units 07:38 07:55 RBC (4.40-5.60) X 10*6/uL Hgb (13.0-17.0) g/dL Hct (39.6-50.0) % RDW (11.5-14.5) % Sodium (137-145) mmol/L Chloride (98-107) mmol/L Carbon Dioxide (22-30) mmol/L BUN (9-20) mg/dL Creatinine (0.66-1.25) mg/dL POC Glucose (mg/dL) 69 L 74 L (75-99) mg/dL Osmolality (280-301) mosm/kg Total Bilirubin (0.2-1.3) mg/dL AST (17-59) U/L ALT (4-49) U/L Alkaline Phosphatase (38-126) U/L Total Protein (6.3-8.2) g/dL Total Protein (PEP) (6.2-8.2) g/dL Albumin (3.5-5.0) g/dL Microbiology - Last 24 Hours (Table) 05/08/21 01:21 Urine Culture - Preliminary Urine,Voided Assessment and Plan Time with Patient: Greater than 30
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
[2021-05-09] MEDS ORDERED: diphenhydrAMINE 25 MG CAP PO PRN (13:23)
[2021-05-09] MEDS ORDERED: IV FLUID CONTINUATION 1,000 ML IV ONE (13:25)
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
[2021-05-09] MEDS ORDERED: MIDAZOLAM 2 MG/2 ML VIAL IV ONE (13:27)
[2021-05-09] MEDS ORDERED: LIDOCAINE 1% INJ 10MG/ML (20 ML MDV) SQ ONE (13:28)
[2021-05-09 14:17] LABS: Albumin 2.41 g/dL (3.80-4.90); Gamma Globulin 0.99 g/dL (0.70-1.50)
--- NOTE | 2021-05-09 14:39 | XR ---
EXAMINATION TYPE: XR chest 1V portable DATE OF EXAM: 05/09/2021 COMPARISON: Chest x-ray 05/07/2021 HISTORY: Status post central venous catheter placement TECHNIQUE: Single frontal view of the chest is obtained. FINDINGS: There has been interval placement of right jugular intravenous catheter tip is overlying t he cavoatrial junction level. Patient is post median sternotomy. Heart is stable. As no evident pneum othorax or pleural effusion. Interstitium is increased. IMPRESSION: No evident complication status post central venous catheter placement
--- NOTE | 2021-05-09 14:40 | IR ---
EXAMINATION TYPE: IR cvc insert >=5 years DATE OF EXAM: 05/09/2021 COMPARISON: NONE HISTORY: Dialysis catheter placement Fluoroscopy support supplied to the referring clinician. See dictated report from vascular surgery, 1 minute fluoroscopy time, 141 intraoperative images document the procedure
[2021-05-09] MEDS: ACETAMINOPHEN TAB 325 MG TAB PO PRN (14:45)
[2021-05-09 17:46] LABS: Glucose,Whole Blood 136 mg/dL (75-99)
--- NOTE | 2021-05-09 18:50 | PCN ---
PROCEDURE NOTE POSTOPERATIVE DIAGNOSIS: Acute on chronic renal failure. POSTOPERATIVE DIAGNOSIS: Acute on chronic renal failure. Sedation time was 30 minutes. PROCEDURE: Placement of a 23 cm dialysis catheter, right jugular approach. PROCEDURE DESCRIPTION: The patient was brought to the cathode washer. Right side of the neck and chest was prepped. Drapes were applied in the usual sterile manner. 1% lidocaine was infiltrated in the neck and chest area. Ultrasound-guided micropuncture was introduced into the right jugular vein. Micropuncture guidewire was passed and 4-Tamazight dilator advanced on the top of the guidewire. After that we created a tunnel. Through the tunnel we brought a 23 cm dialysis catheter. The regular guidewire was passed in the inferior vena cava. Dilator was advanced. Sheath was advanced on the top of the guidewire. Through the sheath we advanced the dialysis catheter. Tip of the catheter was in superior vena cava. Flushed with heparin saline and hep-locked, secured with 3-0 nylon. Patient tolerated the procedure well. MMODL / IJN: [id number] /
--- NOTE | 2021-05-09 20:21 | P.PN ---
Subjective Progress Note Date: 05/09/21 Principal diagnosis: Liver Mass Patient seen and examined today, planning biopsy planned after dialysis next week. Objective - Vital Signs Vital signs: Vital Signs Temp 97.5 F L 05/09/21 14:54 Pulse 65 05/09/21 18:00 Resp 24 05/09/21 18:00 BP 129/68 05/09/21 14:54 Pulse Ox 95 05/09/21 14:54 Intake & Output 05/09/21 05/09/21 05/10/21 06:59 18:59 06:59 Intake Total 551 Output Total 200 350 Balance -200 201 Intake: IV 25 Oral 526 Output: Urine 200 350 Other: Voiding Method External Catheter Urinal # Voids 2 0 # Bowel Movements 2 - Constitutional General appearance: Present: cooperative, no acute distress - EENT Eyes: Present: EOMI, poor dentition ENT: Present: NA/AT, normal oropharynx - Neck Neck: Present: normal ROM - Respiratory Respiratory: bilateral: diminished - Cardiovascular Rhythm: regularly irregular - Gastrointestinal General gastrointestinal: Present: hepatomegaly, tenderness - Integumentary Integumentary: Present: jaundiced - Neurologic Neurologic: Present: CNII-XII intact - Musculoskeletal Musculoskeletal: Present: generalized weakness - Psychiatric Psychiatric: Present: A&O x's 3, appropriate affect, intact judgment & insight - Labs CBC & Chem 7: 05/09/21 04:58 05/09/21 04:58 Labs: Abnormal Lab Results - Last 24 Hours (Table) 05/08/21 05/08/21 05/09/21 Range/Units 07:25 20:14 04:58 RBC (4.40-5.60) X 10*6/uL Hgb (13.0-17.0) g/dL Hct (39.6-50.0) % RDW (11.5-14.5) % Sodium 124 L (135-145) mmol/L Chloride 89 L (96-109) mmol/L Carbon Dioxide 16.6 L (21.6-31.8) mmol/L Anion Gap 18.40 H (4.00-12.00) mmol/L BUN 69.3 H (9.0-27.0) mg/dL Creatinine 8.6 H* (0.6-1.5) mg/dL Est GFR (CKD-EPI)AfAm 7.1 L (60.0-200.0) Est GFR (CKD-EPI)NonAf 6.2 L (60.0-200.0) BUN/Creatinine Ratio 8.06 L (12.00-20.00) Ratio POC Glucose (mg/dL) 121 H (75-99) mg/dL Total Bilirubin 2.10 H (0.30-1.20) mg/dL AST 181 H (14-35) U/L ALT 73 H (10-49) U/L Alkaline Phosphatase (38-126) U/L Total Protein 6.0 L (6.2-8.2) g/dL Total Protein (PEP) 6.0 L (6.2-8.2) g/dL Albumin 2.8 L (3.8-4.9) g/dL Albumin (PEP) 2.41 L (3.80-4.90) g/dL Albumin/Globulin Ratio 0.88 L (1.60-3.17) g/dL Vvmgx-5-Aikudfhud 0.56 H (0.10-0.40) g/dL Iiehd-6-Susmbslqi 1.18 H (0.60-1.00) g/dL NATHALIA Screen POSITIVE A (NEGATIVE) 05/09/21 05/09/21 05/09/21 Range/Units 04:58 04:58 07:38 RBC 3.72 L (4.40-5.60) X 10*6/uL Hgb 10.2 L (13.0-17.0) g/dL Hct 30.2 L (39.6-50.0) % RDW 15.4 H (11.5-14.5) % Sodium 125 L (135-145) mmol/L Chloride 93 L (96-109) mmol/L Carbon Dioxide 17 L (21.6-31.8) mmol/L Anion Gap (4.00-12.00) mmol/L BUN 70 H (9.0-27.0) mg/dL Creatinine 8.75 H* (0.6-1.5) mg/dL Est GFR (CKD-EPI)AfAm (60.0-200.0) Est GFR (CKD-EPI)NonAf (60.0-200.0) BUN/Creatinine Ratio (12.00-20.00) Ratio POC Glucose (mg/dL) 69 L (75-99) mg/dL Total Bilirubin 2.6 H (0.30-1.20) mg/dL AST 169 H (14-35) U/L ALT 73 H (10-49) U/L Alkaline Phosphatase 1411 H (38-126) U/L Total Protein 6.2 L (6.2-8.2) g/dL Total Protein (PEP) (6.2-8.2) g/dL Albumin 2.8 L (3.8-4.9) g/dL Albumin (PEP) (3.80-4.90) g/dL Albumin/Globulin Ratio (1.60-3.17) g/dL Jlwzf-0-Wkfzdpuer (0.10-0.40) g/dL Vexww-0-Zojeyryzj (0.60-1.00) g/dL NATHALIA Screen (NEGATIVE) 05/09/21 05/09/21 05/09/21 Range/Units 07:55 12:10 17:44 RBC (4.40-5.60) X 10*6/uL Hgb (13.0-17.0) g/dL Hct (39.6-50.0) % RDW (11.5-14.5) % Sodium (135-145) mmol/L Chloride (96-109) mmol/L Carbon Dioxide (21.6-31.8) mmol/L Anion Gap (4.00-12.00) mmol/L BUN (9.0-27.0) mg/dL Creatinine (0.6-1.5) mg/dL Est GFR (CKD-EPI)AfAm (60.0-200.0) Est GFR (CKD-EPI)NonAf (60.0-200.0) BUN/Creatinine Ratio (12.00-20.00) Ratio POC Glucose (mg/dL) 74 L 124 H 136 H (75-99) mg/dL Total Bilirubin (0.30-1.20) mg/dL AST (14-35) U/L ALT (10-49) U/L Alkaline Phosphatase (38-126) U/L Total Protein (6.2-8.2) g/dL Total Protein (PEP) (6.2-8.2) g/dL Albumin (3.8-4.9) g/dL Albumin (PEP) (3.80-4.90) g/dL Albumin/Globulin Ratio (1.60-3.17) g/dL Zrsvo-0-Dwactjabr (0.10-0.40) g/dL Zfkwq-3-Xkyfthbhy (0.60-1.00) g/dL NATHALIA Screen (NEGATIVE) Microbiology - Last 24 Hours (Table) 05/08/21 01:21 Urine Culture - Final Urine,Voided Assessment and Plan (1) Acute renal failure Current Visit: Yes Status: Acute Code(s): N17.9 - ACUTE KIDNEY FAILURE, UNSPECIFIED SNOMED Code(s): 32738033 (2) Elevated transaminase level Current Visit: Yes Status: Acute Code(s): R74.01 - ELEVATION OF LEVELS OF LIVER TRANSAMINASE LEVELS SNOMED Code(s): 508797181 (3) Liver mass Current Visit: Yes Status: Acute Priority: High Code(s): R16.0 - HEPATOMEGALY, NOT ELSEWHERE CLASSIFIED SNOMED Code(s): 466192040 (4) Tobacco use disorder, mild, abuse Current Visit: Yes Status: Acute Code(s): F17.200 - NICOTINE DEPENDENCE, UNSPECIFIED, UNCOMPLICATED SNOMED Code(s): 150723244 Plan: Dialysis and then Biopsy of liver lesion Await pathology to determine further recommendations Patient had many questions today aand all answered as best as possible Physician attes: ai have completed the full history and physical and agree with above dictation, dictated as a ascribe.
[2021-05-09] MEDS: BACLOFEN 10 MG TAB PO SCH (20:22)
[2021-05-09] MEDS: VENLAFAXINE HCL ER 37.5 MG CAP PO SCH (20:29)
[2021-05-09 21:04] LABS: Glucose,Whole Blood 199 mg/dL (75-99)
[2021-05-10] MEDS: ACETAMINOPHEN TAB 325 MG TAB PO PRN ×2 (00:28→19:30)
[2021-05-10] MEDS: LEVOTHYROXINE 25 MCG TAB PO SCH (06:19)
[2021-05-10 07:47] LABS: Glucose,Whole Blood 221 mg/dL (75-99)
[2021-05-10] MEDS: carvediloL 12.5 MG TAB PO SCH ×2 (08:05→18:05)
[2021-05-10] MEDS: INSULIN ASPART (NovoLOG) 100 UNIT/ML VIAL SQ SCH ×4 (08:05→20:30)
[2021-05-10] MEDS: NICOTINE 21MG/24HR PATCH TRANSDERM SCH (08:05)
[2021-05-10 08:11] LABS: Basophils % (A) 0 %; Eosinophils # (A) 0.1 k/uL (0-0.7); Eosinophils % (A) 1 %; HCT 34.2 % (39.0-53.0); HGB 11.1 gm/dL (13.0-17.5); Lymphocytes # (A) 0.7 k/uL (1.0-4.8); Lymphocytes % (A) 10 %; MCH 27.8 pg (25.0-35.0); MCHC 32.5 g/dL (31.0-37.0); MCV 85.4 fL (80.0-100.0); Mean Platelet Volume 8.6; Monocytes # (A) 0.4 k/uL (0-1.0); Monocytes % (A) 6 %; Neutrophils # (A) 6.1 k/uL (1.3-7.7); Neutrophils % (A) 81 %; Platelet Count 254 k/uL (150-450); WBC 7.5 k/uL (3.8-10.6)
[2021-05-10 08:22] LABS: ALT 72 U/L (4-49); AST 179 U/L (17-59); African American GFR (CKD) 9 (>60 ml/min/1.73 sqM); Albumin 2.9 g/dL (3.5-5.0); Albumin/Globulin Ratio 0.8; Anion Gap 12 mmol/L; Blood Urea Nitrogen 58 mg/dL (9-20); Calcium 8.9 mg/dL (8.4-10.2); Carbon Dioxide 21 mmol/L (22-30); Chloride 95 mmol/L (98-107); Globulin 3.5 g/dL; Glucose 218 mg/dL (74-99); Magnesium 2.3 mg/dL (1.6-2.3); Non-African American GFR(CKD) 7 (>60 ml/min/1.73 sqM); Potassium 4.4 mmol/L (3.5-5.1); Sodium 128 mmol/L (137-145); Total Bilirubin 3.1 mg/dL (0.2-1.3); Total Protein 6.4 g/dL (6.3-8.2)
[2021-05-10 08:37] LABS: Alkaline Phosphatase 1403 U/L (38-126)
--- NOTE | 2021-05-10 10:23 | P.PN ---
Subjective Progress Note Date: 05/09/21 CHIEF COMPLAINT: Liver mass HISTORY OF PRESENT ILLNESS: The patient is a 56 year old male admitted with right upper quadrant abdominal pain. CT of the abdomen and pelvis findings consistent with new liver mass possible metastases of unclear etiology. Patient is being seen by oncology. Patient presented in acute renal failure. Earlier, dialysis catheter was placed. Patient is currently undergoing hemodialysis in his room at the time of my assessment. He does report increased abdominal pain but tolerable. REVIEW OF ORGAN SYSTEMS: No fevers or chills. On hemodialysis. Reports chest pain PHYSICAL EXAM: VITALS: Reviewed CONSTITUTIONAL: Well developed and in no acute distress. EYES: Conjuctivae without sclera icterus. Extraocular movements grossly intact. HEAD, EARS, NOSE, THROAT: Moist buccal mucosa. Head is atraumatic, normocephalic. Hears conversational speech. No nasal drainage. RESPIRATORY: Non-labored respirations and equal bilateral excursions. No gross wheezes. CARDIOVASCULAR: Regular rate and rhythm. Extremities without moderate edema. Palpable 2+ radial pulses. ABDOMEN: Nontender. Nondistended. MUSCULOSKELETAL: No clubbing cyanosis. SKIN: Warm and well perfused with good skin turgor. NEUROLOGIC: Cranial nerves II through XII grossly intact. No focal or lateralizing signs. PSYCH: Appropriate affect. Alert and oriented to person, place and time. Dis plays appropriate insight. CLINCAL LABS: Reviewed. WBC elevated 11.5 now down to 8.3, normal. Hemoglobin 12.9 down to 10.2. Sodium of 125 now 124. Creatinine elevated 6.97 now 7.39 increased to 8.75. Total bilirubin elevated 2.1 now 2.6. Alkaline phosphatase elevated 1428 now 1411, AST elevated 166 now 169, ALT elevated 93, down to 73. Hepatitis panel negative ASSESSMENT: 1. Abnormal computed tomography scan for liver mass, caudate lobe, concern for malignancy 2. Abdominal pain, right upper quadrant 3. Elevated transaminases and liver enzymes 4. Acute renal failure, requiring dialysis 5. Tobacco abuse disorder 6. Hyponatremia 7. Hyperbilirubinemia PLAN: 1. Overall, will need tissue biopsy for liver lesion to determine metastatic versus primary malignancy 2. Medical management of hyponatremia 3. Assessment and management per oncology due to likely malignancy 4. No acute general surgical intervention at this time 5. Overall prognosis guarded Objective - Vital Signs Vital signs: Vital Signs Temp 97.6 F 05/10/21 08:45 Pulse 65 05/10/21 08:45 Resp 18 05/10/21 08:45 BP 150/78 05/10/21 08:45 Pulse Ox 92 L 05/10/21 08:45 Intake & Output 05/09/21 05/10/21 05/10/21 18:59 06:59 18:59 Intake Total 551 650 Output Total 350 500 Balance 201 150 Intake: IV 25 Oral 526 650 Output: Urine 350 Hemodialysis 500 Other: Voiding Method Urinal Urinal # Voids 0 4 - Labs CBC & Chem 7: 05/10/21 07:50 05/10/21 07:50 Labs: Abnormal Lab Results - Last 24 Hours (Table) 05/08/21 05/09/21 05/09/21 Range/Units 07:25 04:58 12:10 RBC (4.30-5.90) m/uL Hgb (13.0-17.5) gm/dL Hct (39.0-53.0) % Lymphocytes # (1.0-4.8) k/uL Sodium 124 L (135-145) mmol/L Chloride 89 L (96-109) mmol/L Carbon Dioxide 16.6 L (21.6-31.8) mmol/L Anion Gap 18.40 H (4.00-12.00) mmol/L BUN 69.3 H (9.0-27.0) mg/dL Creatinine 8.6 H* (0.6-1.5) mg/dL Est GFR (CKD-EPI)AfAm 7.1 L (60.0-200.0) Est GFR (CKD-EPI)NonAf 6.2 L (60.0-200.0) BUN/Creatinine Ratio 8.06 L (12.00-20.00) Ratio Glucose (74-99) mg/dL POC Glucose (mg/dL) 124 H (75-99) mg/dL Total Bilirubin 2.10 H (0.30-1.20) mg/dL AST 181 H (14-35) U/L ALT 73 H (10-49) U/L Alkaline Phosphatase (38-126) U/L Total Protein 6.0 L (6.2-8.2) g/dL Albumin 2.8 L (3.8-4.9) g/dL Albumin (PEP) 2.41 L (3.80-4.90) g/dL Albumin/Globulin Ratio 0.88 L (1.60-3.17) g/dL Wpzur-7-Xdywvqgdc 0.56 H (0.10-0.40) g/dL Bqjie-3-Gzekrdjyd 1.18 H (0.60-1.00) g/dL NATHALIA Screen POSITIVE A (NEGATIVE) 05/09/21 05/09/21 05/10/21 Range/Units 17:44 20:56 07:44 RBC (4.30-5.90) m/uL Hgb (13.0-17.5) gm/dL Hct (39.0-53.0) % Lymphocytes # (1.0-4.8) k/uL Sodium (135-145) mmol/L Chloride (96-109) mmol/L Carbon Dioxide (21.6-31.8) mmol/L Anion Gap (4.00-12.00) mmol/L BUN (9.0-27.0) mg/dL Creatinine (0.6-1.5) mg/dL Est GFR (CKD-EPI)AfAm (60.0-200.0) Est GFR (CKD-EPI)NonAf (60.0-200.0) BUN/Creatinine Ratio (12.00-20.00) Ratio Glucose (74-99) mg/dL POC Glucose (mg/dL) 136 H 199 H 221 H (75-99) mg/dL Total Bilirubin (0.30-1.20) mg/dL AST (14-35) U/L ALT (10-49) U/L Alkaline Phosphatase (38-126) U/L Total Protein (6.2-8.2) g/dL Albumin (3.8-4.9) g/dL Albumin (PEP) (3.80-4.90) g/dL Albumin/Globulin Ratio (1.60-3.17) g/dL Gwrcd-0-Wbecmdrwv (0.10-0.40) g/dL Vvhfy-9-Vfixayvfp (0.60-1.00) g/dL NATHALIA Screen (NEGATIVE) 05/10/21 05/10/21 Range/Units 07:50 07:50 RBC 4.00 L (4.30-5.90) m/uL Hgb 11.1 L (13.0-17.5) gm/dL Hct 34.2 L (39.0-53.0) % Lymphocytes # 0.7 L (1.0-4.8) k/uL Sodium 128 L (135-145) mmol/L Chloride 95 L (96-109) mmol/L Carbon Dioxide 21 L (21.6-31.8) mmol/L Anion Gap (4.00-12.00) mmol/L BUN 58 H (9.0-27.0) mg/dL Creatinine 7.36 H* (0.6-1.5) mg/dL Est GFR (CKD-EPI)AfAm (60.0-200.0) Est GFR (CKD-EPI)NonAf (60.0-200.0) BUN/Creatinine Ratio (12.00-20.00) Ratio Glucose 218 H (74-99) mg/dL POC Glucose (mg/dL) (75-99) mg/dL Total Bilirubin 3.1 H (0.30-1.20) mg/dL AST 179 H (14-35) U/L ALT 72 H (10-49) U/L Alkaline Phosphatase 1403 H (38-126) U/L Total Protein (6.2-8.2) g/dL Albumin 2.9 L (3.8-4.9) g/dL Albumin (PEP) (3.80-4.90) g/dL Albumin/Globulin Ratio (1.60-3.17) g/dL Tlzea-6-Tkgfnwkoi (0.10-0.40) g/dL Cqemy-5-Avawtbyun (0.60-1.00) g/dL NATHALIA Screen (NEGATIVE) Microbiology - Last 24 Hours (Table) 05/08/21 01:21 Urine Culture - Final Urine,Voided Assessment and Plan (1) Tobacco use disorder, mild, abuse Current Visit: Yes Status: Acute Code(s): F17.200 - NICOTINE DEPENDENCE, UNSPECIFIED, UNCOMPLICATED SNOMED Code(s): 505124284 (2) Elevated transaminase level Current Visit: Yes Status: Acute Code(s): R74.01 - ELEVATION OF LEVELS OF LIVER TRANSAMINASE LEVELS SNOMED Code(s): 908230428 (3) Acute renal failure Current Visit: Yes Status: Acute Code(s): N17.9 - ACUTE KIDNEY FAILURE, UNSPECIFIED SNOMED Code(s): 29275777 (4) Liver tumor Current Visit: Yes Status: Acute Code(s): D49.0 - NEOPLASM OF UNSPECIFIED BEHAVIOR OF DIGESTIVE SYSTEM SNOMED Code(s): 330071985 (5) Diabetes mellitus type 2, insulin dependent Current Visit: Yes Status: Acute Code(s): E11.9 - TYPE 2 DIABETES MELLITUS WITHOUT COMPLICATIONS; Z79.4 - CLOTH SANDER (CURRENT) USE OF INSULIN SNOMED Code(s): 853375472 (6) Hypothyroidism Current Visit: Yes Status: Acute Code(s): E03.9 - HYPOTHYROIDISM, UNSPECIFIED SNOMED Code(s): 07168819 (7) CHF (congestive heart failure) Current Visit: No Status: Acute Code(s): I50.9 - HEART FAILURE, UNSPECIFIED SNOMED Code(s): 44978331 (8) Ischemic cardiomyopathy Current Visit: No Status: Acute Code(s): I25.5 - ISCHEMIC CARDIOMYOPATHY SNOMED Code(s): 733358100 (9) Hyponatremia Current Visit: Yes Status: Acute Code(s): E87.1 - HYPO-OSMOLALITY AND HYPONATREMIA SNOMED Code(s): 95721693
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
--- NOTE | 2021-05-10 12:24 | P.PN ---
Subjective Progress Note Date: 05/10/21 Principal diagnosis: This is a 56-year-old male seen in consultation because of acute kidney injury requiring hemodialysis. He is on dialysis today which would be his second dialy sis with a permacath on the right side The cause of his acute kidney injury is unclear if he does have 2.8 g proteinuria and a mass in the liver that raises the possibility of a tumor related glomerulonephritis but his creatinine was normal at 1.05 on 04/18/2021. Currently he is complaining of pain over his liver. No nausea vomiting no chest pain shortness of breath. He does have cough. Workup has included a CAT scan, which showed a large liver mass with multiple other hypodense areas suspicious for the sciatic disease as well as normal size kidneys and minimal ascites. Ultrasound of the kidney was remarkable for portal vein thrombosis, right kidney 10.4 and left kidney 11.4 cm. Urinalysis shows 1+ protein 5 RBCs and 11 WBCs. Objective - Vital Signs Vital signs: Vital Signs Temp 97.6 F 05/10/21 08:45 Pulse 65 05/10/21 08:45 Resp 18 05/10/21 08:45 BP 150/78 05/10/21 08:45 Pulse Ox 92 L 05/10/21 08:45 Intake & Output 05/09/21 05/10/21 05/10/21 18:59 06:59 18:59 Intake Total 551 650 Output Total 350 500 Balance 201 150 Intake: IV 25 Oral 526 650 Output: Urine 350 Hemodialysis 500 Other: Voiding Method Urinal Urinal # Voids 0 4 On examination currently is on dialysis A chin exam no JVP neck is supple no facial asymmetry Lungs clear to auscultation good air entry bilaterally Heart sounds unremarkable for any murmur rub gallop Abdomen soft nontender slightly distended liver felt about 4 finger breadths below the costal margin firm to touch and nontender Extremity exam reveals no edema Neurologically awake alert oriented comfortable - Labs CBC & Chem 7: 05/10/21 07:50 05/10/21 07:50 Labs: Abnormal Lab Results - Last 24 Hours (Table) 05/08/21 05/09/21 05/09/21 Range/Units 07:25 04:58 12:10 RBC (4.30-5.90) m/uL Hgb (13.0-17.5) gm/dL Hct (39.0-53.0) % Lymphocytes # (1.0-4.8) k/uL Sodium 124 L (135-145) mmol/L Chloride 89 L (96-109) mmol/L Carbon Dioxide 16.6 L (21.6-31.8) mmol/L Anion Gap 18.40 H (4.00-12.00) mmol/L BUN 69.3 H (9.0-27.0) mg/dL Creatinine 8.6 H* (0.6-1.5) mg/dL Est GFR (CKD-EPI)AfAm 7.1 L (60.0-200.0) Est GFR (CKD-EPI)NonAf 6.2 L (60.0-200.0) BUN/Creatinine Ratio 8.06 L (12.00-20.00) Ratio Glucose (74-99) mg/dL POC Glucose (mg/dL) 124 H (75-99) mg/dL Total Bilirubin 2.10 H (0.30-1.20) mg/dL AST 181 H (14-35) U/L ALT 73 H (10-49) U/L Alkaline Phosphatase (38-126) U/L Total Protein 6.0 L (6.2-8.2) g/dL Albumin 2.8 L (3.8-4.9) g/dL Albumin (PEP) 2.41 L (3.80-4.90) g/dL Albumin/Globulin Ratio 0.88 L (1.60-3.17) g/dL Hqoyf-2-Iosvywfqt 0.56 H (0.10-0.40) g/dL Hsizg-1-Qihxjagnt 1.18 H (0.60-1.00) g/dL 05/09/21 05/09/21 05/10/21 Range/Units 17:44 20:56 07:44 RBC (4.30-5.90) m/uL Hgb (13.0-17.5) gm/dL Hct (39.0-53.0) % Lymphocytes # (1.0-4.8) k/uL Sodium (135-145) mmol/L Chloride (96-109) mmol/L Carbon Dioxide (21.6-31.8) mmol/L Anion Gap (4.00-12.00) mmol/L BUN (9.0-27.0) mg/dL Creatinine (0.6-1.5) mg/dL Est GFR (CKD-EPI)AfAm (60.0-200.0) Est GFR (CKD-EPI)NonAf (60.0-200.0) BUN/Creatinine Ratio (12.00-20.00) Ratio Glucose (74-99) mg/dL POC Glucose (mg/dL) 136 H 199 H 221 H (75-99) mg/dL Total Bilirubin (0.30-1.20) mg/dL AST (14-35) U/L ALT (10-49) U/L Alkaline Phosphatase (38-126) U/L Total Protein (6.2-8.2) g/dL Albumin (3.8-4.9) g/dL Albumin (PEP) (3.80-4.90) g/dL Albumin/Globulin Ratio (1.60-3.17) g/dL Wmeje-3-Aljomhcsk (0.10-0.40) g/dL Cjxnx-4-Cnzqdhfsq (0.60-1.00) g/dL 05/10/21 05/10/21 Range/Units 07:50 07:50 RBC 4.00 L (4.30-5.90) m/uL Hgb 11.1 L (13.0-17.5) gm/dL Hct 34.2 L (39.0-53.0) % Lymphocytes # 0.7 L (1.0-4.8) k/uL Sodium 128 L (135-145) mmol/L Chloride 95 L (96-109) mmol/L Carbon Dioxide 21 L (21.6-31.8) mmol/L Anion Gap (4.00-12.00) mmol/L BUN 58 H (9.0-27.0) mg/dL Creatinine 7.36 H* (0.6-1.5) mg/dL Est GFR (CKD-EPI)AfAm (60.0-200.0) Est GFR (CKD-EPI)NonAf (60.0-200.0) BUN/Creatinine Ratio (12.00-20.00) Ratio Glucose 218 H (74-99) mg/dL POC Glucose (mg/dL) (75-99) mg/dL Total Bilirubin 3.1 H (0.30-1.20) mg/dL AST 179 H (14-35) U/L ALT 72 H (10-49) U/L Alkaline Phosphatase 1403 H (38-126) U/L Total Protein (6.2-8.2) g/dL Albumin 2.9 L (3.8-4.9) g/dL Albumin (PEP) (3.80-4.90) g/dL Albumin/Globulin Ratio (1.60-3.17) g/dL Clskw-6-Morpwoxik (0.10-0.40) g/dL Rsiyw-1-Hbybetvdb (0.60-1.00) g/dL Microbiology - Last 24 Hours (Table) 05/08/21 01:21 Urine Culture - Final Urine,Voided Assessment and Plan Assessment: Impression 1. Acute kidney injury with creatinine being 1 on 04/18/2021 came in with a creatinine of 6.97 without any clear-cut etiology except for proteinuria. Rule out IVC thrombosis, this acute renal shutdown is not consistent with a glomerular disease although he has 2.8 g of proteinuria. Workup has included normal size kidneys on ultrasound, NATHALIA and double-stranded DNA is negative, normal complement C3 and complement C4 2. Liver mass possible metastatic liver disease versus primary hepatoma 3. Mild degree of acidosis with bicarb is 21 and anion gap 12, etiology is acute kidney injury 4. Mild degree of hyponatremia secondary acute kidney injury Recommendation 1. Will hold off dialysis tomorrow. 2. Proceed with liver biopsy 3. Rule out IVC thrombosis, although unlikely given there is no edema in his lower extremities
[2021-05-10 12:55] LABS: Glucose,Whole Blood 159 mg/dL (75-99)
--- NOTE | 2021-05-10 15:44 | P.PN ---
Subjective Progress Note Date: 05/10/21 CHIEF COMPLAINT: Liver mass HISTORY OF PRESENT ILLNESS: The patient is a 56 year old male admitted with right upper quadrant abdominal pain with new diagnosis of liver mass. He had hemodialysis. He is a better mood. "I spoke to my family. It's hard to hear cancer." REVIEW OF ORGAN SYSTEMS: No fevers or chills. On hemodialysis. Reports chest pain PHYSICAL EXAM: VITALS: Reviewed CONSTITUTIONAL: Well developed and in no acute distress. EYES: Conjuctivae without sclera icterus. Extraocular movements grossly intact. HEAD, EARS, NOSE, THROAT: Moist buccal mucosa. Head is atraumatic, normocepha lic. Hears conversational speech. No nasal drainage. RESPIRATORY: Non-labored respirations and equal bilateral excursions. No gross wheezes. CARDIOVASCULAR: Palpable 2+ radial pulses. ABDOMEN: Protuberant. No peritonitis. MUSCULOSKELETAL: No clubbing cyanosis. SKIN: Warm and well perfused with good skin turgor. NEUROLOGIC: Cranial nerves II through XII grossly intact. No focal or lateraliz ing signs. PSYCH: Appropriate affect. Alert and oriented to person, place and time. Displays appropriate insight. CLINCAL LABS: Reviewed. WBC normal 7.5. Creatinine down 8.75-7.36. LFTs with persistent elevation. Total bilirubin elevated at 3.1 ASSESSMENT: 1. Abnormal computed tomography scan for liver mass, caudate lobe, concern for malignancy 2. Abdominal pain, right upper quadrant 3. Elevated transaminases and liver enzymes 4. Acute renal failure, requiring dialysis 5. Tobacco abuse disorder 6. Hyponatremia 7. Hyperbilirubinemia PLAN: 1. Continue hemodialysis for acute renal failure 2. Recommend tissue biopsy for liver mass 3. Will follow Objective - Vital Signs Vital signs: Vital Signs Temp 97.6 F 05/10/21 08:45 Pulse 64 05/10/21 13:00 Resp 20 05/10/21 13:00 BP 146/86 05/10/21 13:00 Pulse Ox 92 L 05/10/21 13:00 Intake & Output 05/09/21 05/10/21 05/10/21 18:59 06:59 18:59 Intake Total 551 650 Output Total 350 500 Balance 201 150 Intake: IV 25 Oral 526 650 Output: Urine 350 Hemodialysis 500 Other: Voiding Method Urinal Urinal # Voids 0 4 - Labs CBC & Chem 7: 05/10/21 07:50 05/10/21 07:50 Labs: Abnormal Lab Results - Last 24 Hours (Table) 05/08/21 05/09/21 05/09/21 Range/Units 07:25 04:58 17:44 RBC (4.30-5.90) m/uL Hgb (13.0-17.5) gm/dL Hct (39.0-53.0) % Lymphocytes # (1.0-4.8) k/uL Sodium 124 L (135-145) mmol/L Chloride 89 L (96-109) mmol/L Carbon Dioxide 16.6 L (21.6-31.8) mmol/L Anion Gap 18.40 H (4.00-12.00) mmol/L BUN 69.3 H (9.0-27.0) mg/dL Creatinine 8.6 H* (0.6-1.5) mg/dL Est GFR (CKD-EPI)AfAm 7.1 L (60.0-200.0) Est GFR (CKD-EPI)NonAf 6.2 L (60.0-200.0) BUN/Creatinine Ratio 8.06 L (12.00-20.00) Ratio Glucose (74-99) mg/dL POC Glucose (mg/dL) 136 H (75-99) mg/dL Total Bilirubin 2.10 H (0.30-1.20) mg/dL AST 181 H (14-35) U/L ALT 73 H (10-49) U/L Alkaline Phosphatase (38-126) U/L Total Protein 6.0 L (6.2-8.2) g/dL Albumin 2.8 L (3.8-4.9) g/dL Albumin (PEP) 2.41 L (3.80-4.90) g/dL Albumin/Globulin Ratio 0.88 L (1.60-3.17) g/dL Uqwgg-1-Pcbtmbbkj 0.56 H (0.10-0.40) g/dL Byznb-0-Vtnpoiinr 1.18 H (0.60-1.00) g/dL 05/09/21 05/10/21 05/10/21 Range/Units 20:56 07:44 07:50 RBC 4.00 L (4.30-5.90) m/uL Hgb 11.1 L (13.0-17.5) gm/dL Hct 34.2 L (39.0-53.0) % Lymphocytes # 0.7 L (1.0-4.8) k/uL Sodium (135-145) mmol/L Chloride (96-109) mmol/L Carbon Dioxide (21.6-31.8) mmol/L Anion Gap (4.00-12.00) mmol/L BUN (9.0-27.0) mg/dL Creatinine (0.6-1.5) mg/dL Est GFR (CKD-EPI)AfAm (60.0-200.0) Est GFR (CKD-EPI)NonAf (60.0-200.0) BUN/Creatinine Ratio (12.00-20.00) Ratio Glucose (74-99) mg/dL POC Glucose (mg/dL) 199 H 221 H (75-99) mg/dL Total Bilirubin (0.30-1.20) mg/dL AST (14-35) U/L ALT (10-49) U/L Alkaline Phosphatase (38-126) U/L Total Protein (6.2-8.2) g/dL Albumin (3.8-4.9) g/dL Albumin (PEP) (3.80-4.90) g/dL Albumin/Globulin Ratio (1.60-3.17) g/dL Omtna-8-Wpudwdynk (0.10-0.40) g/dL Uvznr-1-Oimyomqgu (0.60-1.00) g/dL 05/10/21 05/10/21 Range/Units 07:50 12:53 RBC (4.30-5.90) m/uL Hgb (13.0-17.5) gm/dL Hct (39.0-53.0) % Lymphocytes # (1.0-4.8) k/uL Sodium 128 L (135-145) mmol/L Chloride 95 L (96-109) mmol/L Carbon Dioxide 21 L (21.6-31.8) mmol/L Anion Gap (4.00-12.00) mmol/L BUN 58 H (9.0-27.0) mg/dL Creatinine 7.36 H* (0.6-1.5) mg/dL Est GFR (CKD-EPI)AfAm (60.0-200.0) Est GFR (CKD-EPI)NonAf (60.0-200.0) BUN/Creatinine Ratio (12.00-20.00) Ratio Glucose 218 H (74-99) mg/dL POC Glucose (mg/dL) 159 H (75-99) mg/dL Total Bilirubin 3.1 H (0.30-1.20) mg/dL AST 179 H (14-35) U/L ALT 72 H (10-49) U/L Alkaline Phosphatase 1403 H (38-126) U/L Total Protein (6.2-8.2) g/dL Albumin 2.9 L (3.8-4.9) g/dL Albumin (PEP) (3.80-4.90) g/dL Albumin/Globulin Ratio (1.60-3.17) g/dL Ebgpw-5-Tmmziaprd (0.10-0.40) g/dL Ejqvi-3-Pfrxgvfzv (0.60-1.00) g/dL Microbiology - Last 24 Hours (Table) 05/08/21 01:21 Urine Culture - Final Urine,Voided Assessment and Plan (1) Tobacco use disorder, mild, abuse Current Visit: Yes Status: Acute Code(s): F17.200 - NICOTINE DEPENDENCE, UNSPECIFIED, UNCOMPLICATED SNOMED Code(s): 423496865 (2) Elevated transaminase level Current Visit: Yes Status: Acute Code(s): R74.01 - ELEVATION OF LEVELS OF LIVER TRANSAMINASE LEVELS SNOMED Code(s): 545460375 (3) Acute renal failure Current Visit: Yes Status: Acute Code(s): N17.9 - ACUTE KIDNEY FAILURE, UNSPECIFIED SNOMED Code(s): 37512408 (4) Liver tumor Current Visit: Yes Status: Acute Code(s): D49.0 - NEOPLASM OF UNSPECIFIED BEHAVIOR OF DIGESTIVE SYSTEM SNOMED Code(s): 018083717 (5) Diabetes mellitus type 2, insulin dependent Current Visit: Yes Status: Acute Code(s): E11.9 - TYPE 2 DIABETES MELLITUS WITHOUT COMPLICATIONS; Z79.4 - ELDER COUNSELOR (CURRENT) USE OF INSULIN SNOMED Code(s): 842671090 (6) Hypothyroidism Current Visit: Yes Status: Acute Code(s): E03.9 - HYPOTHYROIDISM, UNSPECIFIED SNOMED Code(s): 47984445 (7) CHF (congestive heart failure) Current Visit: No Status: Acute Code(s): I50.9 - HEART FAILURE, UNSPECIFIED SNOMED Code(s): 31695709 (8) Ischemic cardiomyopathy Current Visit: No Status: Acute Code(s): I25.5 - ISCHEMIC CARDIOMYOPATHY SNOMED Code(s): 079184592 (9) Hyponatremia Current Visit: Yes Status: Acute Code(s): E87.1 - HYPO-OSMOLALITY AND HYPONATREMIA SNOMED Code(s): 99891285
[2021-05-10 16:58] LABS: Glucose,Whole Blood 231 mg/dL (75-99)
[2021-05-10 20:00] LABS: Glucose,Whole Blood 286 mg/dL (75-99)
[2021-05-10] MEDS: BACLOFEN 10 MG TAB PO SCH (20:30)
[2021-05-10] MEDS: ATORVASTATIN 80 MG TAB PO SCH (20:30)
[2021-05-10] MEDS: VENLAFAXINE HCL ER 37.5 MG CAP PO SCH (20:31)
--- NOTE | 2021-05-10 22:23 | CONS ---
CONSULTATION DATE OF SERVICE: 05/10/2021. PURPOSE FOR CONSULTATION: Evaluate for depression. INTERVAL HISTORY: The patient is doing fairly well. He acknowledged that he was quite distressed yesterday, mainly relating to the possibilities of his medical diagnosis. He acknowledged that he had made some suicide statements. He said that he has been stressed over a break-up with a girlfriend, which is an added complication for him. He notes that he slept fairly well last night. Today he has been up. He said he has a better mood and outlook today. He was started on Effexor and has not had any problems with it. Previously he was on Cymbalta. He says that he thinks the medicine has been helping him, though he acknowledges that he did some talking to people and that probably was important for him to get out some of his feelings. Today he says he has a much better outlook. He notes a positive mood. Today when I asked him about any suicide thinking, he said that he may have said things that were misinterpreted or that he may have missed spoken one way or another. He reports that he does not have any feelings in that regard today. He feels that he has a hopeful outlook. He understands that there will be some additional testing coming up in the next couple of days for his abdominal issues. Currently he is on Effexor 37.5 mg a day as his only psychotropic medication. He also has Benadryl 25 mg p.r.n. for insomnia. When I saw the patient today, he was lying in bed with his head up. He gave fairly good eye contact. He talked quite a bit. He was spontaneous and interactive. At times he tended to ramble and would talk about what he felt were related subjects, though mostly things from his past. He had a reasonable range of affect. He smiled some. He had a friendly manner. His mood was even. He did seem a little anxious, though not significantly distressed. There was no indication for thought disorder. He was not reporting any thoughts of harm. He was oriented and alert. ASSESSMENT: I will continue the current diagnosis and treatment plan. The patient will continue Effexor 37.5 mg a day. I suggested it might be reasonable after the two doses he has had to increase his Effexor and aim for a dose of 150 mg. The patient requested to keep the medicine at the same dose, feeling like he wanted to have a few more days to adjust to the lower dose of medicine before considering going higher. I reviewed medication issues in regard to antidepressant therapy. I kept the discussion limited, as the patient did not actively engage in that conversation. Psychiatry will continue to follow. HOA / JENNA: [phone] /
[2021-05-11] MEDS: ACETAMINOPHEN TAB 325 MG TAB PO PRN ×3 (06:36→22:48)
[2021-05-11] MEDS: LEVOTHYROXINE 25 MCG TAB PO SCH (06:36)
[2021-05-11 07:21] LABS: Glucose,Whole Blood 143 mg/dL (75-99)
[2021-05-11] MEDS: INSULIN ASPART (NovoLOG) 100 UNIT/ML VIAL SQ SCH ×4 (08:11→22:48)
[2021-05-11] MEDS: carvediloL 12.5 MG TAB PO SCH ×2 (08:11→17:56)
[2021-05-11] MEDS: NICOTINE 21MG/24HR PATCH TRANSDERM SCH (08:11)
--- NOTE | 2021-05-11 08:22 | US ---
EXAMINATION TYPE: US duplex IVC DATE OF EXAM: 05/11/2021 COMPARISON: NONE CLINICAL HISTORY: KEO with Portal vein thrombosis . evaluate IVC for thrombosis Grayscale, color Doppler, spectral Doppler imaging performed of the central inferior vena cava. Porti ons of the inferior vena cava are obscured. Color flow, vascular waveforms noted at the level of the intrahepatic inferior vena cava. no evidence of central IVC thrombosis, good flow visualized. unable to visualize mid and distal IVC d ue to patient's body habitus and large amount of overlying bowel content IMPRESSION: Limited exam as described
--- NOTE | 2021-05-11 10:42 | P.PN ---
Subjective Progress Note Date: 05/11/21 Principal diagnosis: This is a 56-year-old male seen in consultation because of acute kidney injury requiring hemodialysis. He has been dialyzed 2 days in a row The cause of his acute kidney injury is unclear if he does have 2.8 g proteinuria and a mass in the liver that raises the possibility of a tumor related glomerulonephritis but his creatinine was normal at 1.05 on 04/18/2021. A Doppler flow the IVC was not a good study but was unremarkable for IVC thrombosis Workup has included a CAT scan, which showed a large liver mass with multiple other hypodense areas suspicious for the sciatic disease as well as normal size kidneys and minimal ascites. Ultrasound of the kidney was remarkable for portal vein thrombosis, right kidney 10.4 and left kidney 11.4 cm. Urinalysis shows 1+ protein 5 RBCs and 11 WBCs. , Labs pending include ANCA, urine immunofixation. He currently complains of cramps and the is also complaining of nausea and vomiting. Shortness of breath is much better is underway. Vital signs are unremarkable Objective - Vital Signs Vital signs: Vital Signs Temp 97.6 F 05/11/21 04:55 Pulse 71 05/11/21 04:55 Resp 18 05/11/21 04:55 BP 127/52 05/11/21 04:55 Pulse Ox 92 L 05/11/21 04:55 Intake & Output 05/10/21 05/11/21 05/11/21 18:59 06:59 18:59 Intake Total 1670 442 221 Output Total 325 400 Balance 1670 117 -179 Intake: Oral 1670 442 221 Output: Urine 325 400 Other: Voiding Method Urinal Toilet Urinal Urinal # Voids 1 1 Awake alert oriented Patient exam no JVP neck no facial asymmetry Lungs clear to auscultation good air entry bilaterally Heart sounds unremarkable for any murmur rub gallop Abdomen is distended with possible ascites and liver enlargement Extremity examination no edema Neurologically awake alert oriented no asterixis - Labs CBC & Chem 7: 05/10/21 07:50 05/10/21 07:50 Labs: Abnormal Lab Results - Last 24 Hours (Table) 05/10/21 05/10/21 05/10/21 Range/Units 12:53 16:56 19:59 POC Glucose (mg/dL) 159 H 231 H 286 H (75-99) mg/dL 05/11/21 Range/Units 07:14 POC Glucose (mg/dL) 143 H (75-99) mg/dL Assessment and Plan Assessment: Impression 1. Acute kidney injury with creatinine being 1 on 04/18/2021 came in with a creatinine of 6.97 without any clear-cut etiology except for proteinuria. Ruled out IVC thrombosis, this acute renal shutdown is not consistent with a glomerular disease although he has 2.8 g of proteinuria. Workup has included normal size kidneys on ultrasound, NATHALIA and double-stranded DNA is negative, n ormal complement C3 and complement C4. Pending results of uric acid, urine immunofixation. 2. Liver mass possible metastatic liver disease versus primary hepatoma 3. Mild degree of acidosis with bicarb is 21 and anion gap 12, etiology is acute kidney injury. No labs available today 4. Mild degree of hyponatremia secondary acute kidney injury Recommendation 1. Will continue dialysis tomorrow 2. Proceed with liver biopsy
[2021-05-11 12:10] LABS: Glucose,Whole Blood 193 mg/dL (75-99)
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
--- NOTE | 2021-05-11 13:44 | CONS ---
CONSULTATION DATE OF SERVICE: 05/11/2021 PURPOSE FOR CONSULTATION: Evaluate for depression. INTERVAL HISTORY: Patient has been doing fair. It is noted that yesterday he was very talkative all day. He was upbeat in his mood. He would engage with staff in quite extended conversations. He was pretty energetic much of the day. He was tolerating the start of Effexor. He slept well last night. Today, staff note that he has been in a quieter mood. He has napped some on and off through the day. He has not been as engaging in conversations. He has not indicated any issues with difficult mood or depression. He has not made any statements in regard to self-harm. When I talked to him yesterday regarding Effexor dosing and possible increase he wanted to continue just on the 37.5 mg and see how it affects him over the next few days. His appetite has been adequate. When I saw him today, he was sleeping. He was arousable. He gave me fairly good eye contact. He did not say a lot. He had no specific complaints or concerns. His thoughts were clear. He acknowledged that he was tired and was somewhat positive about the idea that he was getting some extra sleep. He said his mood was even. He did not appear to be distressed. He made no indication of any psychotic thinking. ASSESSMENT: I will continue the current diagnosis and treatment plan. The patient will continue Effexor XR 37.5 mg a day. He has had some ups and downs in his mood relating to his medical issues and diagnoses. It may be helpful to have some followup psychiatry as he progresses through his medical evaluations. HOA / JENNA: [phone] /
[2021-05-11 14:46] LABS: Basophils % (A) 0 %; Eosinophils # (A) 0.1 k/uL (0-0.7); Eosinophils % (A) 1 %; HCT 34.6 % (39.0-53.0); Hypochromasia Slight; Lymphocytes % (A) 10 %; MCH 27.9 pg (25.0-35.0); MCHC 31.7 g/dL (31.0-37.0); MCV 88.1 fL (80.0-100.0); Mean Platelet Volume 8.5; Monocytes # (A) 0.6 k/uL (0-1.0); Monocytes % (A) 6 %; Neutrophils # (A) 8.2 k/uL (1.3-7.7); Neutrophils % (A) 82 %; Platelet Count 221 k/uL (150-450); RBC 3.93 m/uL (4.30-5.90); RDW 14.9 % (11.5-15.5); WBC 10.1 k/uL (3.8-10.6)
--- NOTE | 2021-05-11 14:55 | P.PN ---
Subjective Progress Note Date: 05/11/21 CHIEF COMPLAINT: Liver mass HISTORY OF PRESENT ILLNESS: The patient is a 56 year old male admitted with right upper quadrant abdominal pain with new diagnosis of liver mass. He complains of abdominal pain diffuse. He had hemodialysis. He is on fluid restriction. REVIEW OF ORGAN SYSTEMS: No fevers or chills. On hemodialysis. Reports chest pain PHYSICAL EXAM: VITALS: Reviewed CONSTITUTIONAL: Well developed and in no acute distress. EYES: Conjuctivae without sclera icterus. Extraocular movements grossly intact. HEAD, EARS, NOSE, THROAT: Moist buccal mucosa. Head is atraumatic, normocepha lic. Hears conversational speech. No nasal drainage. RESPIRATORY: Non-labored respirations and equal bilateral excursions. No gross wheezes. CARDIOVASCULAR: Palpable 2+ radial pulses. ABDOMEN: Protuberant. Diffusely tender. MUSCULOSKELETAL: No clubbing cyanosis. SKIN: Warm and well perfused with good skin turgor. NEUROLOGIC: Cranial nerves II through XII grossly intact. No focal or latera lizing signs. PSYCH: Appropriate affect. Alert and oriented to person, place and time. Displays appropriate insight. CLINCAL LABS: Reviewed. WBC normal 7.5 up to 10.1. Hemoglobin low 11.0 anemi a. ASSESSMENT: 1. Abnormal computed tomography scan for liver mass, caudate lobe, concern for malignancy 2. Abdominal pain, right upper quadrant 3. Elevated transaminases and liver enzymes 4. Acute renal failure, requiring dialysis 5. Tobacco abuse disorder 6. Hyponatremia 7. Hyperbilirubinemia 8. Anemia PLAN: 1. Currently pending tissue biopsy. 2. May need ultrasound for assessment of ascites and paracentesis Objective - Vital Signs Vital signs: Vital Signs Temp 97.6 F 05/11/21 11:19 Pulse 67 05/11/21 11:19 Resp 16 05/11/21 11:19 BP 143/71 05/11/21 11:19 Pulse Ox 96 05/11/21 11:19 Intake & Output 05/10/21 05/11/21 05/11/21 18:59 06:59 18:59 Intake Total 1670 442 221 Output Total 325 400 Balance 1670 117 -179 Intake: Oral 1670 442 221 Output: Urine 325 400 Other: Voiding Method Urinal Toilet Urinal Urinal # Voids 1 1 - Labs CBC & Chem 7: 05/11/21 14:01 05/10/21 07:50 Labs: Abnormal Lab Results - Last 24 Hours (Table) 05/10/21 05/10/21 05/11/21 Range/Units 16:56 19:59 07:14 POC Glucose (mg/dL) 231 H 286 H 143 H (75-99) mg/dL 05/11/21 Range/Units 12:08 POC Glucose (mg/dL) 193 H (75-99) mg/dL Assessment and Plan (1) Tobacco use disorder, mild, abuse Current Visit: Yes Status: Acute Code(s): F17.200 - NICOTINE DEPENDENCE, UNSPECIFIED, UNCOMPLICATED SNOMED Code(s): 381822537 (2) Elevated transaminase level Current Visit: Yes Status: Acute Code(s): R74.01 - ELEVATION OF LEVELS OF LIVER TRANSAMINASE LEVELS SNOMED Code(s): 445417880 (3) Acute renal failure Current Visit: Yes Status: Acute Code(s): N17.9 - ACUTE KIDNEY FAILURE, UNSPECIFIED SNOMED Code(s): 37753017 (4) Liver tumor Current Visit: Yes Status: Acute Code(s): D49.0 - NEOPLASM OF UNSPECIFIED BEHAVIOR OF DIGESTIVE SYSTEM SNOMED Code(s): 483324599 (5) Diabetes mellitus type 2, insulin dependent Current Visit: Yes Status: Acute Code(s): E11.9 - TYPE 2 DIABETES MELLITUS WITHOUT COMPLICATIONS; Z79.4 - PRODUCTION CONTROL TECHNOLOGIST (CURRENT) USE OF INSULIN SNOMED Code(s): 300327096 (6) Hypothyroidism Current Visit: Yes Status: Acute Code(s): E03.9 - HYPOTHYROIDISM, UNSPECIFIED SNOMED Code(s): 49090527 (7) CHF (congestive heart failure) Current Visit: No Status: Acute Code(s): I50.9 - HEART FAILURE, UNSPECIFIED SNOMED Code(s): 38887968 (8) Ischemic cardiomyopathy Current Visit: No Status: Acute Code(s): I25.5 - ISCHEMIC CARDIOMYOPATHY SNOMED Code(s): 673190703 (9) Hyponatremia Current Visit: Yes Status: Acute Code(s): E87.1 - HYPO-OSMOLALITY AND HYPONATREMIA SNOMED Code(s): 73837447
[2021-05-11 14:57] LABS: ALT 74 U/L (4-49); AST 183 U/L (17-59); African American GFR (CKD) 9 (>60 ml/min/1.73 sqM); Albumin 2.9 g/dL (3.5-5.0); Albumin/Globulin Ratio 0.8; Anion Gap 13 mmol/L; Blood Urea Nitrogen 50 mg/dL (9-20); Calcium 8.8 mg/dL (8.4-10.2); Carbon Dioxide 20 mmol/L (22-30); Chloride 98 mmol/L (98-107); Globulin 3.6 g/dL; Glucose 169 mg/dL (74-99); Non-African American GFR(CKD) 8 (>60 ml/min/1.73 sqM); Potassium 4.3 mmol/L (3.5-5.1); Sodium 131 mmol/L (137-145); Total Bilirubin 3.2 mg/dL (0.2-1.3); Total Protein 6.5 g/dL (6.3-8.2)
[2021-05-11 15:05] LABS: Alkaline Phosphatase 1314 U/L (38-126)
[2021-05-11 17:27] LABS: Glucose,Whole Blood 171 mg/dL (75-99)
[2021-05-11] MEDS: BACLOFEN 10 MG TAB PO SCH (22:47)
[2021-05-11] MEDS: ATORVASTATIN 80 MG TAB PO SCH (22:47)
[2021-05-11] MEDS: VENLAFAXINE HCL ER 37.5 MG CAP PO SCH (23:29)
[2021-05-12] MEDS: LEVOTHYROXINE 25 MCG TAB PO SCH (06:24)
[2021-05-12 06:28] LABS: Basophils % (A) 0 %; Eosinophils # (A) 0.1 k/uL (0-0.7); Eosinophils % (A) 2 %; HCT 36.2 % (39.0-53.0); HGB 11.5 gm/dL (13.0-17.5); Hypochromasia Slight; Lymphocytes % (A) 10 %; MCH 28.2 pg (25.0-35.0); MCHC 31.7 g/dL (31.0-37.0); MCV 88.9 fL (80.0-100.0); Mean Platelet Volume 8.2; Monocytes # (A) 0.4 k/uL (0-1.0); Monocytes % (A) 4 %; Neutrophils # (A) 7.7 k/uL (1.3-7.7); Neutrophils % (A) 82 %; Platelet Count 230 k/uL (150-450); RBC 4.07 m/uL (4.30-5.90); RDW 15.2 % (11.5-15.5); WBC 9.3 k/uL (3.8-10.6)
[2021-05-12 07:05] LABS: Glucose,Whole Blood 141 mg/dL (75-99)
[2021-05-12] MEDS: INSULIN ASPART (NovoLOG) 100 UNIT/ML VIAL SQ SCH ×4 (08:02→21:19)
[2021-05-12] MEDS: carvediloL 12.5 MG TAB PO SCH ×2 (08:02→17:18)
[2021-05-12] MEDS: NICOTINE 21MG/24HR PATCH TRANSDERM SCH (08:03)
[2021-05-12 10:07] VITALS: BMI 25.7
[2021-05-12 11:19] LABS: African American GFR (CKD) 8.6 (60.0-200.0); Albumin/Globulin Ratio 0.86 (1.60-3.17); BUN/Creat Ratio 7.03 Ratio (12.00-20.00); Calcium 8.9 mg/dL (8.7-10.3); Globulin 3.5 g/dL (1.6-3.3); Non-African American GFR(CKD) 7.4 (60.0-200.0); Potassium 4.7 mmol/L (3.5-5.5); Total Bilirubin 2.7 mg/dL (0.30-1.20); Total Protein 6.5 g/dL (6.2-8.2)
[2021-05-12 11:46] LABS: Glucose,Whole Blood 149 mg/dL (75-99)
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
[2021-05-12 14:45] LABS: C-ANCA <1:20 Titer (<1:20)
--- NOTE | 2021-05-12 16:07 | P.PN ---
Subjective Progress Note Date: 05/12/21 CHIEF COMPLAINT: Liver mass HISTORY OF PRESENT ILLNESS: The patient is a 56 year old male admitted with r ight upper quadrant abdominal pain with new diagnosis of liver mass. He has been complaining of abdominal pain diffuse. He is sleeping comfortably. Afebrile. WBC 9.3 hemoglobin 11.5 platelets 2:30 creatinine 7.4 total bilirubin 2.7 AST 211 ALT 80 alk phos 1535 PHYSICAL EXAM: VITAL SIGNS: Reviewed GENERAL: Well-developed in no acute distress. HEENT: No sclera icterus. Extraocular movements grossly intact. Moist buccal mucosa. Head is atraumatic, normocephalic. Hears conversational speech. No nasal drainage. NECK: Supple without lymphadenopathy. CHEST: Non-labored respirations and equal bilateral excursions. CARDIOVASCULAR: Palpable 2+ radial pulses. ABDOMEN: Soft. Nondistended. Diffuse tenderness MUSCULOSKELETAL: No clubbing or cyanosis. NEUROLOGIC: No focal or lateralizing signs. Cranial nerves II through XII grossly intact. SKIN: Well perfused. Good skin turgor. ASSESSMENT: 1. Abnormal computed tomography scan for liver mass, caudate lobe, concern for malignancy 2. Abdominal pain, right upper quadrant 3. Elevated transaminases and liver enzymes 4. Acute renal failure, requiring dialysis 5. Tobacco abuse disorder 6. Hyponatremia 7. Hyperbilirubinemia 8. Anemia PLAN: 1. Currently pending tissue biopsy. 2. May need ultrasound for assessment of ascites and paracentesis 3. Continue supportive care Physician Human Resources Psychologist note has been reviewed by physician. Signing provider agrees with the documented findings, assessment, and plan of care. Objective - Vital Signs Vital signs: Vital Signs Temp 98.5 F 05/12/21 12:05 Pulse 67 05/12/21 12:05 Resp 17 05/12/21 12:05 BP 116/69 05/12/21 12:05 Pulse Ox 94 L 05/12/21 12:05 Intake & Output 05/11/21 05/12/21 05/12/21 18:59 06:59 18:59 Intake Total 694 Output Total 400 500 Balance 294 -500 Weight 86.183 kg Intake: Oral 694 Output: Urine 400 500 Other: Voiding Method Urinal Bedside Commode Urinal # Voids 1 - Labs CBC & Chem 7: 05/12/21 06:09 05/12/21 06:09 Labs: Abnormal Lab Results - Last 24 Hours (Table) 05/11/21 05/12/21 05/12/21 Range/Units 17:15 06:09 06:09 RBC 4.07 L (4.30-5.90) m/uL Hgb 11.5 L (13.0-17.5) gm/dL Hct 36.2 L (39.0-53.0) % Sodium 130 L (135-145) mmol/L Chloride 95 L (96-109) mmol/L Carbon Dioxide 18.0 L (21.6-31.8) mmol/L Anion Gap 17.00 H (4.00-12.00) mmol/L BUN 52.0 H (9.0-27.0) mg/dL Creatinine 7.4 H* (0.6-1.5) mg/dL Est GFR (CKD-EPI)AfAm 8.6 L (60.0-200.0) Est GFR (CKD-EPI)NonAf 7.4 L (60.0-200.0) BUN/Creatinine Ratio 7.03 L (12.00-20.00) Ratio Glucose 125 H (70-110) mg/dL POC Glucose (mg/dL) 171 H (75-99) mg/dL Total Bilirubin 2.70 H (0.30-1.20) mg/dL AST 211 H (14-35) U/L ALT 80 H (10-49) U/L Alkaline Phosphatase 1535 H (41-126) U/L Albumin 3.0 L (3.8-4.9) g/dL Globulin 3.5 H (1.6-3.3) g/dL Albumin/Globulin Ratio 0.86 L (1.60-3.17) g/dL 05/12/21 05/12/21 Range/Units 07:04 11:44 RBC (4.30-5.90) m/uL Hgb (13.0-17.5) gm/dL Hct (39.0-53.0) % Sodium (135-145) mmol/L Chloride (96-109) mmol/L Carbon Dioxide (21.6-31.8) mmol/L Anion Gap (4.00-12.00) mmol/L BUN (9.0-27.0) mg/dL Creatinine (0.6-1.5) mg/dL Est GFR (CKD-EPI)AfAm (60.0-200.0) Est GFR (CKD-EPI)NonAf (60.0-200.0) BUN/Creatinine Ratio (12.00-20.00) Ratio Glucose (70-110) mg/dL POC Glucose (mg/dL) 141 H 149 H (75-99) mg/dL Total Bilirubin (0.30-1.20) mg/dL AST (14-35) U/L ALT (10-49) U/L Alkaline Phosphatase (41-126) U/L Albumin (3.8-4.9) g/dL Globulin (1.6-3.3) g/dL Albumin/Globulin Ratio (1.60-3.17) g/dL
--- NOTE | 2021-05-12 16:29 | PN ---
PROGRESS NOTE Patient is seen for followup for acute kidney injury. He has been started on dialysis for significant renal failure. Patient is also found to have a liver mass with other multiple lesions suggestive of metastatic disease. Diagnosis of underlying malignancy has not been made yet. Patient had about 500 mL of urine output this morning. On examination today, blood pressure was 116/69, heart rate 67 per minute. He is afebrile. EXAMINATION OF THE HEART: S1 and S2. EXAMINATION OF LUNGS: Bilateral breath sounds are heard. Decreased breath sounds at the bases. Abdomen is soft, non-tender. Examination of lower extremities shows no significant edema. ECHOCARDIOGRAPHY TECH exam shows patient has been confused on and not. He has been moving all 4 extremities. Labs from today show sodium 130, potassium 4.7, BUN 52, serum creatinine 7.4. ASSESSMENT: 1. Acute kidney injury, acute tubular necrosis, versus underlying glomerulonephritis, possibly related to underlying malignancy, although this has not been diagnosed yet. Patient's NATHALIA was positive. All other serologies are negative. He has about 2.8 grams of proteinuria. The patient will be dialyzed today and we will monitor over the next 24 to 48 hours for possible recovery of kidney function. 2. Liver mass, primary versus metastatic. 3. Metabolic acidosis associated with renal failure. 4. Hyponatremia associated with renal failure, currently improved. PLAN: Hemodialysis today. Will hold dialysis tomorrow and assess for possible recovery of kidney function. Consider liver biopsy. MMODL / IJN: [id number] /
[2021-05-12 17:37] LABS: Glucose,Whole Blood 135 mg/dL (75-99)
--- NOTE | 2021-05-12 18:51 | P.PN ---
Subjective Progress Note Date: 05/12/21 Principal diagnosis: Liver Mass Patient is confused today, drooling and stating he is nauseated, although falls back asleep. He has had Catheter for diaylsis placed and planning HD today per Nursing. Objective - Vital Signs Vital signs: Vital Signs Temp 97.4 F L 05/12/21 05:00 Pulse 53 L 05/12/21 08:00 Resp 18 05/12/21 05:00 BP 132/69 05/12/21 08:00 Pulse Ox 95 05/12/21 05:00 Intake & Output 05/11/21 05/12/21 05/12/21 18:59 06:59 18:59 Intake Total 694 Output Total 400 500 Balance 294 -500 Weight 86.183 kg Intake: Oral 694 Output: Urine 400 500 Other: Voiding Method Urinal Bedside Commode Urinal # Voids 1 - Exam Confused, Alert x2 NAD Lethargic Head: NCNT Lungs: Rhonchi Abdomen: Distended Right chest HD POrt LE mild edema Abdomen: Tender - Labs CBC & Chem 7: 05/12/21 06:09 05/12/21 06:09 Labs: Abnormal Lab Results - Last 24 Hours (Table) 05/11/21 05/11/21 05/11/21 Range/Units 12:08 14:01 14:01 RBC 3.93 L (4.30-5.90) m/uL Hgb 11.0 L (13.0-17.5) gm/dL Hct 34.6 L (39.0-53.0) % Neutrophils # 8.2 H (1.3-7.7) k/uL Sodium 131 L (137-145) mmol/L Chloride (96-109) mmol/L Carbon Dioxide 20 L (22-30) mmol/L Anion Gap (4.00-12.00) mmol/L BUN 50 H (9-20) mg/dL Creatinine 7.08 H* (0.66-1.25) mg/dL Est GFR (CKD-EPI)AfAm (60.0-200.0) Est GFR (CKD-EPI)NonAf (60.0-200.0) BUN/Creatinine Ratio (12.00-20.00) Ratio Glucose 169 H (74-99) mg/dL POC Glucose (mg/dL) 193 H (75-99) mg/dL Total Bilirubin 3.2 H (0.2-1.3) mg/dL AST 183 H (17-59) U/L ALT 74 H (4-49) U/L Alkaline Phosphatase 1314 H (38-126) U/L Albumin 2.9 L (3.5-5.0) g/dL Globulin (1.6-3.3) g/dL Albumin/Globulin Ratio (1.60-3.17) g/dL 05/11/21 05/12/21 05/12/21 Range/Units 17:15 06:09 06:09 RBC 4.07 L (4.30-5.90) m/uL Hgb 11.5 L (13.0-17.5) gm/dL Hct 36.2 L (39.0-53.0) % Neutrophils # (1.3-7.7) k/uL Sodium 130 L (137-145) mmol/L Chloride 95 L (96-109) mmol/L Carbon Dioxide 18.0 L (22-30) mmol/L Anion Gap 17.00 H (4.00-12.00) mmol/L BUN 52.0 H (9-20) mg/dL Creatinine 7.4 H* (0.66-1.25) mg/dL Est GFR (CKD-EPI)AfAm 8.6 L (60.0-200.0) Est GFR (CKD-EPI)NonAf 7.4 L (60.0-200.0) BUN/Creatinine Ratio 7.03 L (12.00-20.00) Ratio Glucose 125 H (74-99) mg/dL POC Glucose (mg/dL) 171 H (75-99) mg/dL Total Bilirubin 2.70 H (0.2-1.3) mg/dL AST 211 H (17-59) U/L ALT 80 H (4-49) U/L Alkaline Phosphatase 1535 H (38-126) U/L Albumin 3.0 L (3.5-5.0) g/dL Globulin 3.5 H (1.6-3.3) g/dL Albumin/Globulin Ratio 0.86 L (1.60-3.17) g/dL 05/12/21 Range/Units 07:04 RBC (4.30-5.90) m/uL Hgb (13.0-17.5) gm/dL Hct (39.0-53.0) % Neutrophils # (1.3-7.7) k/uL Sodium (137-145) mmol/L Chloride (96-109) mmol/L Carbon Dioxide (22-30) mmol/L Anion Gap (4.00-12.00) mmol/L BUN (9-20) mg/dL Creatinine (0.66-1.25) mg/dL Est GFR (CKD-EPI)AfAm (60.0-200.0) Est GFR (CKD-EPI)NonAf (60.0-200.0) BUN/Creatinine Ratio (12.00-20.00) Ratio Glucose (74-99) mg/dL POC Glucose (mg/dL) 141 H (75-99) mg/dL Total Bilirubin (0.2-1.3) mg/dL AST (17-59) U/L ALT (4-49) U/L Alkaline Phosphatase (38-126) U/L Albumin (3.5-5.0) g/dL Globulin (1.6-3.3) g/dL Albumin/Globulin Ratio (1.60-3.17) g/dL Assessment and Plan (1) Acute renal failure Current Visit: Yes Status: Acute Code(s): N17.9 - ACUTE KIDNEY FAILURE, UNSPECIFIED SNOMED Code(s): 82452440 (2) Elevated transaminase level Current Visit: Yes Status: Acute Code(s): R74.01 - ELEVATION OF LEVELS OF LIVER TRANSAMINASE LEVELS SNOMED Code(s): 577746193 (3) Liver mass Current Visit: Yes Status: Acute Priority: High Code(s): R16.0 - HEPATOMEGALY, NOT ELSEWHERE CLASSIFIED SNOMED Code(s): 904227840 (4) Tobacco use disorder, mild, abuse Current Visit: Yes Status: Acute Code(s): F17.200 - NICOTINE DEPENDENCE, UNSPECIFIED, UNCOMPLICATED SNOMED Code(s): 619762456 Plan: Dialysis and then Biopsy of liver lesion this week Await pathology to determine further recommendations Await clearance by Nephrology for MRI with COntrast to further Identify area of biospsy and then await pathology PT/OT Discussed with primary team today.
[2021-05-12 20:31] LABS: Glucose,Whole Blood 113 mg/dL (75-99)
[2021-05-12] MEDS: VENLAFAXINE HCL ER 37.5 MG CAP PO SCH (21:32)
[2021-05-12] MEDS: BACLOFEN 10 MG TAB PO SCH (21:32)
[2021-05-12] MEDS: ATORVASTATIN 80 MG TAB PO SCH (21:32)
[2021-05-12 22:39] LABS: Folate, Serum 5.8 ng/mL (4.40-31.00)
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
[2021-05-13 04:33] LABS: Mean Platelet Volume 9.4; Platelet Count 237 k/uL (150-450)
[2021-05-13 04:35] LABS: Prothrombin Time 10.8 sec (9.0-12.0)
[2021-05-13 04:45] LABS: African American GFR (CKD) 10 (>60 ml/min/1.73 sqM); Anion Gap 13 mmol/L; Blood Urea Nitrogen 43 mg/dL (9-20); Calcium 8.9 mg/dL (8.4-10.2); Carbon Dioxide 21 mmol/L (22-30); Chloride 100 mmol/L (98-107); Glucose 160 mg/dL (74-99); Non-African American GFR(CKD) 9 (>60 ml/min/1.73 sqM); Potassium 4.9 mmol/L (3.5-5.1); Sodium 134 mmol/L (137-145)
[2021-05-13] MEDS: LEVOTHYROXINE 25 MCG TAB PO SCH (05:47)
[2021-05-13 08:01] LABS: Glucose,Whole Blood 162 mg/dL (75-99)
[2021-05-13] MEDS: INSULIN ASPART (NovoLOG) 100 UNIT/ML VIAL SQ SCH ×4 (08:19→21:24)
[2021-05-13] MEDS: carvediloL 12.5 MG TAB PO SCH ×2 (08:56→17:37)
[2021-05-13] MEDS: NICOTINE 21MG/24HR PATCH TRANSDERM SCH (08:56)
--- NOTE | 2021-05-13 11:02 | P.PN ---
Progress Note - Text Progress Note Date: 05/13/21 Interval History: Patient was seen at bedside. Currently the patient continues to be altered. He is more alert and oriented today but continues to present with a paucity of speech and appears to be less coherent. Currently he is endorsing suicidal ideation with a plan to jump out the window. He denies any intention to do so. He also reports auditory and visual hallucinations, stating that he saw a nurse at his window but realized she was not really there. He reports sleep is difficult due to night terrors which he has had even prior to this admission. He has been adherent with his medications and reports no significant side effects at this time. Mental Status Exam: General Appearance: The patient appears to be stated age, is currently covering himself with his sheets. Less salivation today. Behavior: Eye contact is appropriate. Psychomotor activity appears slow. Speech: Patient's speech is slightly dysarthric but more spontaneous. Monotone with normal rate and volume. Mood: Patient sees that he is "not good." Affect appears to be blunted. Suicidality/Homicidality: Patient endorses suicidal ideation but no intention or plan. Denies homicidal ideation, intention, and/or plan. Perceptions: Patient reports auditory and visual hallucinations. Though content/process: Delusional thought content is endorsed. Thought process appears to be somewhat disorganized. Memory and concentration: AAOx4 today. Concentration appears to be poor. Judgment and insight: Poor. Vital Signs Temp 97.4 F L 05/13/21 07:00 Pulse 83 05/13/21 09:04 Resp 22 05/13/21 07:00 BP 124/75 05/13/21 09:04 Pulse Ox 96 05/13/21 07:00 Intake & Output 05/12/21 05/13/21 05/13/21 18:59 06:59 18:59 Intake Total 720 20 Output Total 500 500 275 Balance 220 -480 -275 Weight 86.183 kg Intake: Oral 720 20 Output: Urine 500 275 Uretheral (Dawkins) 275 Hemodialysis 500 Other: Voiding Method Bedside Commode Bedside Commode Urinal Urinal Assessment Altered mental status; suspect postoperative delirium Major depressive disorder, recurrent, severe Posttraumatic stress disorder Nicotine dependence Opiate use disorder, in sustained remission Multiple hepatic lesions - abnormal liver mass. Acute renal failure Congestive heart failure Hypothyroidism Diabetes mellitus Plan: -Continue your medical management -At this time patient DOES NOT meet criteria for inpatient psychiatric admission. The patient has numerous medical conditions and make it difficult to assess his psychiatric pathology. We will continue to monitor the patient and address altered mental status. Suspect acute metabolic encephalopathy vs postoperative delirium. -Would recommend the following medication changes/additions: Continue Effexor XR 37.5 mg by mouth at bedtime for management of depression/anxiety/PTSD - Difficult in titration of psychiatric medications due to liver and kidney injury. Will continue to assess risk vs benefit of titration of medication for this patient. Start Seroquel 25 mg at bedtime for psychosis. -B12, folate, ammonia, TSH reviewed and WNL. -Will continue to follow along
--- NOTE | 2021-05-13 11:15 | P.PN ---
Subjective Progress Note Date: 05/13/21 CHIEF COMPLAINT: Liver mass HISTORY OF PRESENT ILLNESS: The patient is a 56 year old male admitted with r ight upper quadrant abdominal pain with new diagnosis of liver mass. He has been complaining of abdominal pain diffuse. He is having bowel movements and flatus. Patient had hemodialysis yesterday. Awaiting MRI of liver and liver biopsy to be completed. Afebrile. Creatinine 6.42 PHYSICAL EXAM: VITAL SIGNS: Reviewed GENERAL: Well-developed in no acute distress. HEENT: No sclera icterus. Extraocular movements grossly intact. Moist buccal mucosa. Head is atraumatic, normocephalic. Hears conversational speech. No nasal drainage. NECK: Supple without lymphadenopathy. CHEST: Non-labored respirations and equal bilateral excursions. CARDIOVASCULAR: Palpable 2+ radial pulses. ABDOMEN: Soft. Distended. Diffuse tenderness MUSCULOSKELETAL: No clubbing or cyanosis. NEUROLOGIC: Confused. No focal or lateralizing signs. Cranial nerves II through XII grossly intact. SKIN: Well perfused. Good skin turgor. ASSESSMENT: 1. Abnormal computed tomography scan for liver mass, caudate lobe, concern for malignancy 2. Abdominal pain, right upper quadrant 3. Elevated transaminases and liver enzymes 4. Acute renal failure, requiring dialysis 5. Tobacco abuse disorder 6. Hyponatremia 7. Hyperbilirubinemia 8. Anemia PLAN: 1. Currently pending liver biopsy. 2. Continue supportive care Physician Responder note has been reviewed by physician. Signing provider agrees with the documented findings, assessment, and plan of care. Objective - Vital Signs Vital signs: Vital Signs Temp 97.4 F L 05/13/21 07:00 Pulse 83 05/13/21 09:04 Resp 22 05/13/21 07:00 BP 124/75 05/13/21 09:04 Pulse Ox 96 05/13/21 07:00 Intake & Output 05/12/21 05/13/21 05/13/21 18:59 06:59 18:59 Intake Total 720 20 Output Total 500 500 275 Balance 220 -480 -275 Weight 86.183 kg Intake: Oral 720 20 Output: Urine 500 275 Uretheral (Dawkins) 275 Hemodialysis 500 Other: Voiding Method Bedside Commode Bedside Commode Urinal Urinal - Labs CBC & Chem 7: 05/13/21 03:50 05/13/21 03:50 Labs: Abnormal Lab Results - Last 24 Hours (Table) 05/12/21 05/12/21 05/12/21 Range/Units 06:09 11:44 12:57 Sodium 130 L (135-145) mmol/L Chloride 95 L (96-109) mmol/L Carbon Dioxide 18.0 L (21.6-31.8) mmol/L Anion Gap 17.00 H (4.00-12.00) mmol/L BUN 52.0 H (9.0-27.0) mg/dL Creatinine 7.4 H* (0.6-1.5) mg/dL Est GFR (CKD-EPI)AfAm 8.6 L (60.0-200.0) Est GFR (CKD-EPI)NonAf 7.4 L (60.0-200.0) BUN/Creatinine Ratio 7.03 L (12.00-20.00) Ratio Glucose 125 H (70-110) mg/dL POC Glucose (mg/dL) 149 H (75-99) mg/dL Total Bilirubin 2.70 H (0.30-1.20) mg/dL AST 211 H (14-35) U/L ALT 80 H (10-49) U/L Alkaline Phosphatase 1535 H (41-126) U/L Albumin 3.0 L (3.8-4.9) g/dL Globulin 3.5 H (1.6-3.3) g/dL Albumin/Globulin Ratio 0.86 L (1.60-3.17) g/dL Vitamin B12 1594.0 H (200.0-944.0) pg/mL 05/12/21 05/12/21 05/13/21 Range/Units 17:36 20:30 03:50 Sodium 134 L (135-145) mmol/L Chloride (96-109) mmol/L Carbon Dioxide 21 L (21.6-31.8) mmol/L Anion Gap (4.00-12.00) mmol/L BUN 43 H (9.0-27.0) mg/dL Creatinine 6.42 H (0.6-1.5) mg/dL Est GFR (CKD-EPI)AfAm (60.0-200.0) Est GFR (CKD-EPI)NonAf (60.0-200.0) BUN/Creatinine Ratio (12.00-20.00) Ratio Glucose 160 H (70-110) mg/dL POC Glucose (mg/dL) 135 H 113 H (75-99) mg/dL Total Bilirubin (0.30-1.20) mg/dL AST (14-35) U/L ALT (10-49) U/L Alkaline Phosphatase (41-126) U/L Albumin (3.8-4.9) g/dL Globulin (1.6-3.3) g/dL Albumin/Globulin Ratio (1.60-3.17) g/dL Vitamin B12 (200.0-944.0) pg/mL 05/13/21 Range/Units 08:00 Sodium (135-145) mmol/L Chloride (96-109) mmol/L Carbon Dioxide (21.6-31.8) mmol/L Anion Gap (4.00-12.00) mmol/L BUN (9.0-27.0) mg/dL Creatinine (0.6-1.5) mg/dL Est GFR (CKD-EPI)AfAm (60.0-200.0) Est GFR (CKD-EPI)NonAf (60.0-200.0) BUN/Creatinine Ratio (12.00-20.00) Ratio Glucose (70-110) mg/dL POC Glucose (mg/dL) 162 H (75-99) mg/dL Total Bilirubin (0.30-1.20) mg/dL AST (14-35) U/L ALT (10-49) U/L Alkaline Phosphatase (41-126) U/L Albumin (3.8-4.9) g/dL Globulin (1.6-3.3) g/dL Albumin/Globulin Ratio (1.60-3.17) g/dL Vitamin B12 (200.0-944.0) pg/mL
[2021-05-13 12:11] LABS: Glucose,Whole Blood 137 mg/dL (75-99)
[2021-05-13 12:15] LABS: ANA Pattern Speckled
--- NOTE | 2021-05-13 13:49 | PN ---
PROGRESS NOTE The patient is seen for followup for acute kidney injury. He has been started on hemodialysis. The patient has had 3 treatments consecutively. His serum creatinine remains elevated at 6.4. He has had urine retention and a Dawkins catheter was just placed today. The patient has been confused, seems to be repeating the same words that are said to him. He does have a liver mass for which there are plans for biopsy. PHYSICAL EXAMINATION: On examination today, blood pressure 144/65, heart rate 74 per minute. He is afebrile. Examination of the heart S1, S2. Examination of the lungs, decreased breath sounds at the bases. Abdomen is soft, nontender. Examination of lower extremities shows no evidence of edema. [employer] exam shows patient is confused. He is moving all 4 extremities. LAB: Show sodium 134, potassium 4.9, BUN 43, creatinine 6.42. ASSESSMENT: 1. Acute kidney injury, ATN versus underlying GN, possibly related to underlying malignancy. Most likely the liver. Not sure if this is primary or metastatic. NATHALIA was positive, but all other serologies are negative. It is noted that patient had about 2.8 g of proteinuria. I will hold off on dialysis today and we will plan for another treatment tomorrow as his creatinine remains elevated. Awaiting liver biopsy. 2. Liver mass primary versus metastatic with plans for biopsy this week. 3. Metabolic acidosis associated with renal failure. 4. Mental status changes, possibly uremia, but not improved after 3 consecutive treatments of dialysis. We will plan for a treatment again tomorrow. PLAN: Repeat hemodialysis in a.m. Await liver biopsy. MMODL / IJN: [id number] /
[2021-05-13] MEDS ORDERED: HYDROmorphone 0.5 MG/0.5 ML SYRINGE IVP STA (14:56)
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
--- NOTE | 2021-05-13 15:25 | US ---
EXAMINATION TYPE: US kidneys/renal and bladder DATE OF EXAM: 05/13/2021 COMPARISON: US & CT CLINICAL HISTORY: decreased urinary output, ? kidney stone. Decreased urine output EXAM MEASUREMENTS: Right Kidney: 13.4 x 5.3 x 5.7 cm Left Kidney: 12.1 x 6.4 x 5.7 cm Heterogeneous echoes in the liver consistent with multiple masses. Right Kidney: No hydronephrosis or masses seen Left Kidney: No hydronephrosis, limited visualization due to overlying bowel gas Bladder: Unable to visualize, pt has catheter in place There is no evidence for hydronephrosis at this point in time. No nephrolithiasis is seen. No winsome s are identified. Cortical measured differentiation is maintained. Cortical echogenicity is increase d and the right kidney. IMPRESSION: Correlate for medical renal disease. No hydronephrosis. Metastatic disease.
--- NOTE | 2021-05-13 15:26 | US ---
EXAMINATION TYPE: US biopsy liver DATE OF EXAM: 05/13/2021 HISTORY: The liver masses. FINDINGS: Maximal barrier technique was utilized. Hand hygiene achieved with soap and water and alco hol-based hand rub. The skin overlying a suitable path to the patient's mass in the left lobe of the liver was localized with ultrasound and the overlying skin prepped and draped. Ultrasound was utiliz ed with sterile technique. Lidocaine was used for local anesthesia. A skin dave was made with a sca lpel. An 18-gauge needle was advanced under direct ultrasound guidance and core specimen obtained of the mass. Specimen submitted in formalin to Pathology. Following the procedure, hemostasis achieved and the patient is discharged in stable condition without complication. IMPRESSION:STATUS POST ULTRASOUND GUIDED CORE BIOPSY OF left lobe of liver MASS, PATHOLOGY IS PENDING . THIS PROCEDURE IS PERFORMED BY THE UNDERSIGNED.
[2021-05-13 15:57] LABS: Appearance,Urine Turbid (Clear); Bacteria,Urine Moderate /hpf; Bilirubin,Urine Negative (Negative); Blood,Urine Large (Negative); Color,Urine Red; Glucose,Urine (UA) 1+ (Negative); Ketones,Urine Negative (Negative); Leukocyte Esterase,Urine Large (Negative); Nitrite,Urine Negative (Negative); PH, Urine 5.5 (5.0-8.0); Protein,Urine 2+ (Negative); RBC,Urine >182 /hpf (0-5); Squamous Epithelial Cell,Urine 28 /hpf (0-4); Urobilinogen,Urine <2.0 mg/dL (<2.0); WBC,Urine >182 /hpf (0-5)
[2021-05-13 15:58] LABS: Specific Gravity,Urine 1.017 (1.001-1.035)
--- NOTE | 2021-05-13 15:59 | P.PCN ---
Date of Procedure: 05/13/21 Preoperative Diagnosis: liver masses Procedure(s) Performed: u/s guide liver mass biopsy Anesthesia: local, other (1%lidocaine, dilaudid ivp) Pathology: other (18 ga core in formalin to path) Condition: stable Disposition: no change
[2021-05-13 17:09] LABS: Glucose,Whole Blood 135 mg/dL (75-99)
[2021-05-13] MEDS: ACETAMINOPHEN TAB 325 MG TAB PO PRN (19:46)
[2021-05-13] MEDS ORDERED: HYDROmorphone 0.5 MG/0.5 ML SYRINGE IVP PRN (20:02)
[2021-05-13] MEDS: ATORVASTATIN 80 MG TAB PO SCH (20:28)
[2021-05-13] MEDS: BACLOFEN 10 MG TAB PO SCH (20:28)
[2021-05-13] MEDS: VENLAFAXINE HCL ER 37.5 MG CAP PO SCH (20:29)
[2021-05-13 20:56] LABS: Glucose,Whole Blood 180 mg/dL (75-99)
[2021-05-13] MEDS ORDERED: QUEtiapine 25 MG TAB PO SCH (21:00)
[2021-05-14] MEDS ORDERED: FUROSEMIDE 10 MG/ML 10 ML VIAL IV STA (05:32)
[2021-05-14] MEDS: LEVOTHYROXINE 25 MCG TAB PO SCH (05:43)
--- NOTE | 2021-05-14 05:53 | XR ---
EXAMINATION TYPE: XR chest 1V portable DATE OF EXAM: 05/14/2021 COMPARISON: 05/09/2021 HISTORY: Catheter placement TECHNIQUE: Single view FINDINGS: Heart is borderline enlarged. There is right central venous catheter with tip in the superi or vena cava. There are sternal wires. There is no heart failure. Costophrenic angles are clear. IMPRESSION: No active cardiopulmonary disease. No adverse change compared to old exam.
[2021-05-14 06:34] VITALS: RESP 20
[2021-05-14 06:54] VITALS: BP 151/72; PULSE 78; TEMP 98.5
[2021-05-14 07:24] LABS: Glucose,Whole Blood 205 mg/dL (75-99)
[2021-05-14 08:21] LABS: Basophils # (A) 0.1 k/uL (0-0.2); Basophils % (A) 0 %; Eosinophils # (A) 0.1 k/uL (0-0.7); Eosinophils % (A) 1 %; HCT 33.5 % (39.0-53.0); HGB 10.5 gm/dL (13.0-17.5); Hypochromasia Slight; Lymphocytes # (A) 0.9 k/uL (1.0-4.8); Lymphocytes % (A) 7 %; MCH 27.9 pg (25.0-35.0); MCHC 31.5 g/dL (31.0-37.0); MCV 88.8 fL (80.0-100.0); Monocytes # (A) 0.6 k/uL (0-1.0); Monocytes % (A) 5 %; Neutrophils # (A) 10.5 k/uL (1.3-7.7); Neutrophils % (A) 86 %; Platelet Count 232 k/uL (150-450); RBC 3.77 m/uL (4.30-5.90); RDW 15.3 % (11.5-15.5); WBC 12.3 k/uL (3.8-10.6)
[2021-05-14 08:30] LABS: ALT 88 U/L (4-49); AST 280 U/L (17-59); African American GFR (CKD) 8 (>60 ml/min/1.73 sqM); Albumin 3.1 g/dL (3.5-5.0); Albumin/Globulin Ratio 0.8; Anion Gap 14 mmol/L; Blood Urea Nitrogen 60 mg/dL (9-20); Carbon Dioxide 19 mmol/L (22-30); Chloride 101 mmol/L (98-107); Globulin 3.9 g/dL; Glucose 216 mg/dL (74-99); Non-African American GFR(CKD) 7 (>60 ml/min/1.73 sqM); Potassium 5.5 mmol/L (3.5-5.1); Sodium 134 mmol/L (137-145); Total Bilirubin 2.5 mg/dL (0.2-1.3)
[2021-05-14 08:47] LABS: Alkaline Phosphatase 1553 U/L (38-126)
[2021-05-14] MEDS: carvediloL 12.5 MG TAB PO SCH (09:14)
[2021-05-14] MEDS ORDERED: FUROSEMIDE 10 MG/ML 4 ML VIAL IV STA (09:22)
[2021-05-14] MEDS: INSULIN ASPART (NovoLOG) 100 UNIT/ML VIAL SQ SCH (09:38)
[2021-05-14] MEDS: NICOTINE 21MG/24HR PATCH TRANSDERM SCH (10:30)
[2021-05-14 11:11] LABS: Glucose,Whole Blood 148 mg/dL (75-99)
[2021-05-14] MEDS ORDERED: LORazepam 2 MG/ML INJ IV PRN (11:27)
[2021-05-14] MEDS ORDERED: HYDROmorphone 1 MG/ML 1 ML SYRINGE IVP PRN (11:28)
[2021-05-14] MEDS ORDERED: ONDANSETRON 4 MG/2 ML VIAL IVP PRN (11:28)
[2021-05-14] MEDS ORDERED: SCOPOLAMINE 1.5MG/72HR PATCH TRANSDERM SCH (12:00)
--- NOTE | 2021-05-14 12:05 | PN ---
PROGRESS NOTE Patient is seen for followup for acute kidney injury. He is currently seen on hemodialysis. Last night patient developed shortness of breath and he was switched over to 100% non-rebreather. Chest x-ray did not show any acute findings. This was done early this morning. Patient is sleepy but arousable. His O2 saturations have been at 91% to 90%. He is currently on 15 L of oxygen. We are planning for about 3 L of ultrafiltration. Patient had his liver biopsy done yesterday. Results are still pending. On examination today, blood pressure 151/72, heart rate 78 per minute. Patient is afebrile. He is currently seen on the machine being dialyzed. He is on 100% non- rebreather. He is sleeping comfortably, arousable. Examination of lower extremities shows no significant edema. EXAMINATION OF THE HEART: S1 and S2. EXAMINATION OF LUNGS: Bilateral breath sounds are heard. Abdomen is soft, non-tender. Band-aid noted at the site of the liver biopsy. Labs from this morning show sodium 134, potassium 5.5 chloride 101, CO2 19, BUN 60, serum creatinine 7.84. ASSESSMENT: 1. Acute kidney injury, acute tubular necrosis, versus acute GN, possibly related to underlying malignancy if the liver lesion is malignant. 2. Liver mass, status post liver biopsy yesterday. 3. Hyperkalemia associated with renal failure. Expect improvement post dialysis. 4. Hypoxia, possibly related to some degree of volume overload, although chest x-ray from yesterday did not show any significant congestive heart failure. We have removed about 3 L of fluid with dialysis today. PLAN: Repeat hemodialysis in a.m. Await liver biopsy. Continue off of IV fluids. Overall prognosis is guarded. MMODL / IJN: [id number] /
--- NOTE | 2021-05-14 12:26 | P.PN ---
Subjective Progress Note Date: 05/14/21 Principal diagnosis: Liver Mass Patient's status has changed since the past few days, he is not responding to stimuli, oxygenation requiring non-rebreather for oxygen to remain above 90%, Jaundice worsening, HR 118, BP 90s/60. He is receiving dialysis at bedside during evaluation. Spoke with primary team and family concerned at bedside about his active change. Patient is not responding to stimuli as he was earlier. He remains a full CPR at this time and agree that further evaluation for higher level of care is appropriate. In the interim we are awaiting the family to discu ss overall patient and family wishes. He did undergo his biopsy yesterday, however this will not be back for a couple days. Objective - Vital Signs Vital signs: Vital Signs Temp 98.5 F 05/14/21 06:51 Pulse 78 05/14/21 06:51 Resp 20 05/14/21 06:51 BP 151/72 05/14/21 06:51 Pulse Ox 90 L 05/14/21 08:36 Intake & Output 05/13/21 05/14/21 05/14/21 18:59 06:59 18:59 Output Total 275 100 Balance -275 -100 Output: Urine 275 100 Uretheral (Dawkins) 275 Other: Voiding Method Bedside Commode Bedside Commode Urinal Urinal # Voids 0 # Bowel Movements 1 0 - Exam unresponsive, NRF Increased respiratory effort Jaundice Appears critically ill - Labs CBC & Chem 7: 05/14/21 07:35 05/14/21 07:35 Labs: Abnormal Lab Results - Last 24 Hours (Table) 05/13/21 05/13/21 05/13/21 Range/Units 15:43 17:08 20:55 WBC (3.8-10.6) k/uL RBC (4.30-5.90) m/uL Hgb (13.0-17.5) gm/dL Hct (39.0-53.0) % Neutrophils # (1.3-7.7) k/uL Lymphocytes # (1.0-4.8) k/uL Sodium (137-145) mmol/L Potassium (3.5-5.1) mmol/L Carbon Dioxide (22-30) mmol/L BUN (9-20) mg/dL Creatinine (0.66-1.25) mg/dL Glucose (74-99) mg/dL POC Glucose (mg/dL) 135 H 180 H (75-99) mg/dL Total Bilirubin (0.2-1.3) mg/dL AST (17-59) U/L ALT (4-49) U/L Alkaline Phosphatase (38-126) U/L Ammonia (<30) umol/L Albumin (3.5-5.0) g/dL Urine Protein 2+ H (Negative) Urine Glucose (UA) 1+ H (Negative) Urine Blood Large H (Negative) Ur Leukocyte Esterase Large H (Negative) Urine RBC >182 H (0-5) /hpf Urine WBC >182 H (0-5) /hpf Urine WBC Clumps Many H (None) /hpf Ur Squamous Epith Cells 28 H (0-4) /hpf Urine Bacteria Moderate H (None) /hpf 05/14/21 05/14/21 05/14/21 Range/Units 07:21 07:35 07:35 WBC 12.3 H (3.8-10.6) k/uL RBC 3.77 L (4.30-5.90) m/uL Hgb 10.5 L (13.0-17.5) gm/dL Hct 33.5 L (39.0-53.0) % Neutrophils # 10.5 H (1.3-7.7) k/uL Lymphocytes # 0.9 L (1.0-4.8) k/uL Sodium (137-145) mmol/L Potassium (3.5-5.1) mmol/L Carbon Dioxide (22-30) mmol/L BUN (9-20) mg/dL Creatinine (0.66-1.25) mg/dL Glucose (74-99) mg/dL POC Glucose (mg/dL) 205 H (75-99) mg/dL Total Bilirubin (0.2-1.3) mg/dL AST (17-59) U/L ALT (4-49) U/L Alkaline Phosphatase (38-126) U/L Ammonia 39 H (<30) umol/L Albumin (3.5-5.0) g/dL Urine Protein (Negative) Urine Glucose (UA) (Negative) Urine Blood (Negative) Ur Leukocyte Esterase (Negative) Urine RBC (0-5) /hpf Urine WBC (0-5) /hpf Urine WBC Clumps (None) /hpf Ur Squamous Epith Cells (0-4) /hpf Urine Bacteria (None) /hpf 05/14/21 05/14/21 Range/Units 07:35 11:08 WBC (3.8-10.6) k/uL RBC (4.30-5.90) m/uL Hgb (13.0-17.5) gm/dL Hct (39.0-53.0) % Neutrophils # (1.3-7.7) k/uL Lymphocytes # (1.0-4.8) k/uL Sodium 134 L (137-145) mmol/L Potassium 5.5 H (3.5-5.1) mmol/L Carbon Dioxide 19 L (22-30) mmol/L BUN 60 H (9-20) mg/dL Creatinine 7.84 H* (0.66-1.25) mg/dL Glucose 216 H (74-99) mg/dL POC Glucose (mg/dL) 148 H (75-99) mg/dL Total Bilirubin 2.5 H (0.2-1.3) mg/dL AST 280 H (17-59) U/L ALT 88 H (4-49) U/L Alkaline Phosphatase 1553 H (38-126) U/L Ammonia (<30) umol/L Albumin 3.1 L (3.5-5.0) g/dL Urine Protein (Negative) Urine Glucose (UA) (Negative) Urine Blood (Negative) Ur Leukocyte Esterase (Negative) Urine RBC (0-5) /hpf Urine WBC (0-5) /hpf Urine WBC Clumps (None) /hpf Ur Squamous Epith Cells (0-4) /hpf Urine Bacteria (None) /hpf Microbiology - Last 24 Hours (Table) 05/13/21 15:43 Urine Culture - Preliminary Urine,Clean Catch Assessment and Plan (1) Acute renal failure Status: Acute Code(s): N17.9 - ACUTE KIDNEY FAILURE, UNSPECIFIED SNOMED Code(s): 19806715 (2) Elevated transaminase level Status: Acute Code(s): R74.01 - ELEVATION OF LEVELS OF LIVER TRANSAMINASE LEVELS SNOMED Code(s): 767393445 (3) Liver mass Status: Acute Priority: High Code(s): R16.0 - HEPATOMEGALY, NOT ELSEWHERE CLASSIFIED SNOMED Code(s): 267001317 (4) Tobacco use disorder, mild, abuse Status: Acute Code(s): F17.200 - NICOTINE DEPENDENCE, UNSPECIFIED, UNCOMPLICATED SNOMED Code(s): 916379538 Plan: Patient appears immenently ill, this is a change in status from previous. Fiance at bedside and awaiting for daughter to arrive, at the time of assessment patient remains a full CPR. Actively receiving Dialysis. RN is at bedside and questions are being answered to the best as possible to family, he is saturating 88-91% on non-rebreather. - Further assessment for higher level of care versus comfort measures only, awaiting for daughter (DPOA) Discussed with primary team and agree with further evaluation in the critically ill patient.
--- NOTE | 2021-05-14 12:34 | P.PN ---
Progress Note - Text Progress Note Date: 05/14/21 Patient is unable to engage in the psychiatric interview and is minimally responsive to external stimuli. As per chart review and discussion with the patient's nurse, the family is considering hospice care. Psychiatry will sign off at this time. Thank you for letting us participate in the patient's care.
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
[2021-05-14 18:53] LABS: Hepatitis B Surface AB- Quant 3.5 mIU/mL; Hepatitis B Surface Antibody Nonreactive (Nonreactive)
--- NOTE | 2021-05-21 10:03 | CDI ---
Documentation Clarification Form Date: 05/21/21 From: Ada Bess Admit Date: 05/07/2021 10:36:00 PM Patient Name: Damon Javed Visit Number: [id number] Discharge Date: 05/14/2021 01:01:00 PM ATTENTION: The Clinical Documentation Specialists (CDI) and [facility] Coding Staff appreciate your assistance in clarifying documentation. Please respond to the clarification below the line at the bottom and electronically sign. The CDI & [facility] Coding staff will review the response and follow-up if needed. Please note: Queries are made part of the Legal Health Record. If you have any questions, please contact the author of this message via ITS. Dr. Dre Ross Sheet, The patients principal diagnosis the diagnosis that was chiefly responsible for the admission - has not been clearly identified and clarification is requested. This 56-year-old the male came in with compensative right upper quadrant abdominal pain moderate severity sharp in nature and radiating all over the abdomen patient had a CT of the abdomen which showed multiple lesions at and as per the radiologist reading metastatic disease need to be ruled out. Patient also found to be in acute renal failure with a serum creatinine going up to around 7.39 baseline is around 1. History/Risk factors: DM, HTN w chronic systolic CHF, ischemic cardiomyopathy, Bipolar w depression Clinical Indicators: see below Lab findings: NA 125, BUN 60, Cr 6.97/7.39, GFR 8/7, Total bilirubin 2.0, AST 166, ALT 93, Alkaline Phos 1428, LIPASE 873 05/07 ABDPELWO: Enlarged liver measuring 23 cm with multiple hypodense areas suspicious for diffuse metastatic disease. Large mass involving the caudate lobe could be primary liver tumor. Vital Signs: T 97.4, P 79, R 20, BP 155/70, O2 99 Path findings: LIVER MASS, BIOPSY: Compatible with hepatocellular carcinoma. Treatment: hemodialysis, liver biopsy, IV fluids, IV Lasix Consults: Nephrology, Surgery, Oncology, Psych In your professional opinion, can you please clarify which diagnosis, after study, was the reason chiefly responsible for the admission? [ ] ATN [ ] Hepatocellular carcinoma, specify (primary or metastatic) [ ] Other, please specify [ ] Unable to determine Unable to determine MTDD
--- NOTE | 2021-05-27 10:23 | CDI ---
Documentation Clarification Form Date: 05/27/21 From: Ada Bess Admit Date: 05/07/2021 10:36:00 PM Patient Name: Damon Javed Visit Number: [id number] Discharge Date: 05/14/2021 01:01:00 PM ATTENTION: The Clinical Documentation Specialists (CDI) and [facility] Coding Staff appreciate your assistance in clarifying documentation. Please respond to the clarification below the line at the bottom and electronically sign. The CDI & [facility] Coding staff will review the response and follow-up if needed. Please note: Queries are made part of the Legal Health Record. If you have any questions, please contact the author of this message via ITS. Dr. Damaris Delgado, The final diagnosis of the pathology report states "LIVER MASS, BIOPSY: Compatible with hepatocellular carcinoma." Coding guidelines do not allow coding professionals to code based on pathology results; therefore, clarification is requested. History/risk factors: DM, HTN w chronic systolic CHF, ischemic cardiomyopathy, Bipolar w depression Clinical Indicators: This 56-year-old the male came in with compensative right upper quadrant abdominal pain moderate severity sharp in nature and radiating all over the abdomen patient had a CT of the abdomen which showed multiple lesions at and as per the radiologist reading metastatic disease need to be ruled out. Patient also found to be in acute renal failure with a serum creatinine going up to around 7.39 baseline is around 1. Treatment: liver biopsy, IV fluids, IV Lasix, hemodialysis Please clarify if you agree with the pathology report diagnosis of hepatocellular carcinoma: [ x ] Yes [ ] No [ ] Other (please specify) [ ] Unable to determine MTDD
== END 2021-05-14 13:01 | disposition hospice, inpatient (51) | DRG 682 ==
LOC: EC 17:31 → 5NMEDONC 22:36 → 6NMEDSUR 05-08 06:38 → 5NMEDONC 05-10 07:08
PROVIDERS: ADMIT Internal Medicine; ATTEND Internal Medicine
PROC: 02HV33Z Insertion of Infusion Device into Superior Vena Cava, Percutaneous Approach (ICD-10-PCS; 2021-05-09 08:25)
PROC: 5A1D70Z Performance of Urinary Filtration, Intermittent, Less than 6 Hours Per Day (ICD-10-PCS; 2021-05-09 08:25)
PROC: 0FB23ZX Excision of Left Lobe Liver, Percutaneous Approach, Diagnostic (ICD-10-PCS; principal; 2021-05-13)
DX: N17.0 Acute kidney failure with tubular necrosis (principal); J96.01 Acute respiratory failure with hypoxia; G93.41 Metabolic encephalopathy; C22.0 Liver cell carcinoma; I50.22 Chronic systolic (congestive) heart failure; E87.1 Hypo-osmolality and hyponatremia; E87.2 Acidosis; F31.4 Bipolar disorder, current episode depressed, severe, without psychotic features; R18.8 Other ascites; R45.851 Suicidal ideations; I11.0 Hypertensive heart disease with heart failure; E11.9 Type 2 diabetes mellitus without complications; Z79.4 Long term (current) use of insulin; F11.11 Opioid abuse, in remission; Z66 Do not resuscitate; Z51.5 Encounter for palliative care; Z20.822 Contact with and (suspected) exposure to COVID-19; K74.60 Unspecified cirrhosis of liver; I25.5 Ischemic cardiomyopathy; E87.5 Hyperkalemia; T50.2X5A Adverse effect of carbonic-anhydrase inhibitors, benzothiadiazides and other diuretics, initial encounter; T46.4X5A Adverse effect of angiotensin-converting-enzyme inhibitors, initial encounter; E03.9 Hypothyroidism, unspecified; F43.10 Post-traumatic stress disorder, unspecified; I25.10 Atherosclerotic heart disease of native coronary artery without angina pectoris; D64.9 Anemia, unspecified; E78.5 Hyperlipidemia, unspecified; I25.2 Old myocardial infarction; G47.00 Insomnia, unspecified; R33.9 Retention of urine, unspecified; R80.9 Proteinuria, unspecified; R63.30 Feeding difficulties, unspecified; F17.210 Nicotine dependence, cigarettes, uncomplicated; Z79.82 Long term (current) use of aspirin; Z79.84 Long term (current) use of oral hypoglycemic drugs; Z79.890 Hormone replacement therapy; Z79.899 Other long term (current) drug therapy; Z95.1 Presence of aortocoronary bypass graft; Z95.5 Presence of coronary angioplasty implant and graft; Z86.73 Personal history of transient ischemic attack (TIA), and cerebral infarction without residual deficits; Z87.81 Personal history of (healed) traumatic fracture; Z87.39 Personal history of other diseases of the musculoskeletal system and connective tissue; Z87.2 Personal history of diseases of the skin and subcutaneous tissue; Z90.49 Acquired absence of other specified parts of digestive tract; Z86.010 Personal history of colon polyps; Z87.19 Personal history of other diseases of the digestive system; Z98.890 Other specified postprocedural states; Z88.5 Allergy status to narcotic agent; Z88.0 Allergy status to penicillin; Z88.2 Allergy status to sulfonamides; Z88.8 Allergy status to other drugs, medicaments and biological substances; Z91.048 Other nonmedicinal substance allergy status
CPT/HCPCS: 36415; 36558; 47000; 71045; 71046; 74176; 76700; 76770; 76937; 76942; 77001; 80048; 80053; 80074; 81001; 82140; 82570; 82607; 82746; 83605; 83690; 83735; 83880; 83930; 83935; 84100; 84156; 84165; 84300; 84443; 84550; 85025; 85027; 85049; 85610; 85730; 86038; 86039; 86160; 86162; 86225; 86255; 86335; 86706; 87077; 87086; 87186; 87635; 88307; 88313; 88342; 90935; 93306; 93979; 94760; 99285

== ENCOUNTER 2021-05-14 12:41 | Inpatient (IN) | payer MEDICAID ==
[2021-05-14] MEDS ORDERED: HALOPERIDOL LACTATE 5 MG/ML 1 ML VIAL IM PRN (12:43)
[2021-05-14] MEDS ORDERED: ACETAMINOPHEN SUPPOSITORY 650 MG SUPP RECTAL PRN (12:43)
[2021-05-14] MEDS ORDERED: MORPHINE SULFATE 2 MG/ML SYRINGE IV PRN (12:43)
[2021-05-14] MEDS ORDERED: LORazepam 2 MG/ML INJ IV PRN (12:43)
[2021-05-14] MEDS ORDERED: GLYCOPYRROLATE 0.2 MG/ML 2 ML VIAL IVP PRN (12:43)
[2021-05-14] MEDS ORDERED: ONDANSETRON 4 MG/2 ML VIAL IVP PRN (12:43)
[2021-05-14] MEDS ORDERED: SCOPOLAMINE 1.5MG/72HR PATCH TRANSDERM SCH (12:45)
[2021-05-14] MEDS: MORPHINE SULFATE (100 MG/2 ML) 100 MG in SODIUM CHLORIDE 0.9% 100 ML IV SCH (13:48)
[2021-05-14] MEDS: HYOSCYAMINE ORAL DROPS 1.875 MG/15 ML BOTTLE PO PRN (13:51)
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
[2021-05-15] MEDS: ATROPINE OPHTH SOLN 1% 5ML BTL SUBLINGUAL PRN ×2 (13:24→17:40)
[2021-05-15] MEDS: MORPHINE SULFATE (100 MG/2 ML) 100 MG in SODIUM CHLORIDE 0.9% 100 ML IV SCH (17:39)
[2021-05-15 20:29] VITALS: BP 95/57; RESP 16; TEMP 98.1
[2021-05-15] MEDS: HYOSCYAMINE ORAL DROPS 1.875 MG/15 ML BOTTLE PO PRN (21:25)
[2021-05-15] MEDS ORDERED: LORazepam 2 MG/ML INJ IV PRN (23:25)
--- NOTE | 2021-05-16 09:22 | P.DS ---
Providers Date of admission: 05/14/21 13:01 Expected date of discharge: 05/16/21 Attending physician: Dre Delcid MD Primary care physician: Damaris Delgado [facility] Course: Final diagnosis -Multiple lesions in the liver mostly appears to be cirrhosis, possible metastasis -Abdominal pain secondary to enlarged liver -Acute renal failure: Prerenal azotemia requiring hemodialysis -Congestive heart failure chronic systolic dysfunction with EF of around the 20%, not in acute exacerbation -Hypothyroidism -coronary artery disease -No code Preliminary cause of Acute renal failure Discharge disposition Patient has . According to nursing documentation, time of was 0100 on 05/16/2021. Patient and family signed on with [facility] and were inpatient with comfort measures only. Please refer to previous dictations for further HPI. Patient Condition at Discharge: Undetermined Plan - Discharge Summary New Discharge Prescriptions: No Action DULoxetine HCL [Cymbalta] 30 mg PO TID Acetaminophen [Tylenol] 325 - 650 mg PO Q6H PRN PRN Reason: Pain Spironolactone [Aldactone] 50 mg PO DAILY #30 tab Aspirin 81 mg PO DAILY #30 chew Atorvastatin [Lipitor] 80 mg PO HS #30 tab metFORMIN HCL [Glucophage] 1,000 mg PO BID #60 tab carvediloL [Coreg*] 12.5 mg PO BID-W/MEALS #60 tab Losartan [Cozaar] 50 mg PO DAILY #30 tab Pioglitazone HCl 30 mg PO DAILY Levothyroxine Sodium [Synthroid] 25 mcg PO DAILY Albuterol Inhaler [Ventolin Hfa Inhaler] 2 puff INHALATION RT-QID PRN PRN Reason: Shortness Of Breath Magnesium Oxide 400 mg PO HS Insulin Glargine,Hum.rec.anlog [Lantus Solostar Pen] 20 unit SQ DAILY Baclofen [Lioresal] 20 mg PO HS Potassium Gluconate [Potassium Gluconate ER] 99 mg PO HS Discharge Medication List DULoxetine HCL [Cymbalta] 30 mg PO TID 08/25/18 [History] Acetaminophen [Tylenol] 325 - 650 mg PO Q6H PRN 04/15/19 [History] Aspirin 81 mg PO DAILY #30 chew 04/16/19 [Rx] Atorvastatin [Lipitor] 80 mg PO HS #30 tab 04/16/19 [Rx] Spironolactone [Aldactone] 50 mg PO DAILY #30 tab 04/16/19 [Rx] metFORMIN HCL [Glucophage] 1,000 mg PO BID #60 tab 04/16/19 [Rx] Losartan [Cozaar] 50 mg PO DAILY #30 tab 05/06/19 [Rx] carvediloL [Coreg*] 12.5 mg PO BID-W/MEALS #60 tab 05/06/19 [Rx] Albuterol Inhaler [Ventolin Hfa Inhaler] 2 puff INHALATION RT-QID PRN 05/07/21 [History] Baclofen [Lioresal] 20 mg PO HS 05/07/21 [History] Insulin Glargine,Hum.rec.anlog [Lantus Solostar Pen] 20 unit SQ DAILY 05/07/21 [History] Levothyroxine Sodium [Synthroid] 25 mcg PO DAILY 05/07/21 [History] Magnesium Oxide 400 mg PO HS 05/07/21 [History] Pioglitazone HCl 30 mg PO DAILY 05/07/21 [History] Potassium Gluconate [Potassium Gluconate ER] 99 mg PO HS 05/07/21 [History] Discharge Disposition: - Preliminary Cause of Preliminary Cause of : Acute renal failure
== END 2021-05-16 04:15 | disposition expired | DRG 951 ==
LOC: 5NMEDONC 13:01
PROVIDERS: ADMIT Internal Medicine; ATTEND Internal Medicine
DX: Z51.5 Encounter for palliative care (principal); I50.22 Chronic systolic (congestive) heart failure; N17.9 Acute kidney failure, unspecified; C78.7 Secondary malignant neoplasm of liver and intrahepatic bile duct; Z66 Do not resuscitate; E03.9 Hypothyroidism, unspecified; C80.1 Malignant (primary) neoplasm, unspecified; K74.60 Unspecified cirrhosis of liver; E11.9 Type 2 diabetes mellitus without complications; Z99.2 Dependence on renal dialysis; E78.5 Hyperlipidemia, unspecified; F17.210 Nicotine dependence, cigarettes, uncomplicated; F31.9 Bipolar disorder, unspecified; F41.9 Anxiety disorder, unspecified; I11.0 Hypertensive heart disease with heart failure; I25.10 Atherosclerotic heart disease of native coronary artery without angina pectoris; I25.2 Old myocardial infarction; I25.5 Ischemic cardiomyopathy; Z79.82 Long term (current) use of aspirin; Z79.84 Long term (current) use of oral hypoglycemic drugs; Z79.890 Hormone replacement therapy; Z79.899 Other long term (current) drug therapy; Z86.73 Personal history of transient ischemic attack (TIA), and cerebral infarction without residual deficits; Z95.1 Presence of aortocoronary bypass graft; Z95.5 Presence of coronary angioplasty implant and graft; Z98.890 Other specified postprocedural states; Z88.5 Allergy status to narcotic agent; Z53.8 Procedure and treatment not carried out for other reasons